=== PATIENT | male | born 1940 | race Caucasian/White ===

== ENCOUNTER 2024-02-27 18:57 | Inpatient (IN) | payer MEDICARE, SELFPAY ==
--- NOTE | ~2024-02-27 | CT_ITS ---
EXAMINATION: CT thoracic lumbar wo con DATE: 02/27/2024 22:54 INDICATION: Back injury. Fall from ladder. TECHNIQUE: Computed tomography (CT) of the thoracic and lumbar spine was performed without intravenou s contrast. Automated exposure control and iterative reconstruction technique were employed. The dose -length product was 766.28 mGy-cm. COMPARISON: None FINDINGS: CT THORACIC SPINE: There is a combination of moderate emphysema and chronic interstitial lung disease . There is 19 degrees dextroscoliosis of thoracic spine. There is mild chronic height loss of T3, T4, T5, T6, T7, T8, T9, T10, T11, and T12 vertebral bodies. There is mildly decreased disc height at man y levels. There is moderately decreased disc height at T6-T7, T7-T8, and T8-T9, severely decreased di sc height at T9-T10, and moderately decreased disc height at T10-T11. There is multilevel facet joint osteoarthritis, severe at multiple levels. There is multilevel mild neural foraminal stenosis bilate rally. On the right, there is moderate neural foraminal stenosis at T6-T7, T7-T8, and T8-T9 and sever e neural foraminal stenosis at T9-T10. On the left, there is moderate neural foraminal stenosis at T7 -T8 and T8-T9 and severe neural foraminal stenosis at T9-T10. There is mild central canal stenosis at T6-T7, T7-T8, T8-T9, T9-T10, and T10-T11. CT LUMBAR SPINE: The bladder is markedly distended. There are cysts in left kidney measuring up to 4. 3 cm. Bone alignment is normal. There is mild chronic height loss of L1 vertebral body. Intervertebra l disc heights are normal in lumbar spine. The following disc levels are specifically discussed: L1-L2: The disc is bulging. There is moderate bilateral facet joint osteoarthritis. There is mild lef t neural foraminal stenosis. There is no central canal stenosis. L2-L3: The disc is bulging. There is severe bilateral facet joint osteoarthritis. There is mild bilat eral neural foraminal stenosis. There is mild central canal stenosis. L3-L4: The disc is bulging. There is severe right and moderate left facet joint osteoarthritis. There is mild bilateral neural foraminal stenosis. There is mild central canal stenosis. L4-L5: The disc is bulging. There is severe right and moderate left facet joint osteoarthritis. There is moderate bilateral neural foraminal stenosis. There is mild central canal stenosis. L5-S1: The disc is bulging. There is severe bilateral facet joint osteoarthritis. There is mild bilat eral neural foraminal stenosis. There is mild central canal stenosis. IMPRESSION: 1. No acute spine fracture. 2. Moderate thoracic spondylosis and mild lumbar spondylosis. Reviewed, dictated and finalized at location E.
--- NOTE | ~2024-02-27 | CT_ITS ---
EXAMINATION: CT cervical spine wo con DATE: 02/27/2024 22:54 INDICATION: Head injury. TECHNIQUE: Computed tomography (CT) of the cervical spine was performed without intravenous contrast. Automated exposure control and iterative reconstruction technique were employed. The dose-length pro duct was 412.81 mGy-cm. COMPARISON: None FINDINGS: There is mild emphysema. There is 17 degrees levoscoliosis of cervicothoracic spine. There is 2 mm retrolisthesis of C3 on C4. There is a chronic compression fracture of T3 with 1/5 loss of he ight. There is severely decreased disc height at C3-C4, mildly decreased disc height at C4-C5, and mo derately decreased disc height at C5-C6 and C6-C7. The following disc levels are specifically discuss ed: C2-C3: There is no uncovertebral joint osteoarthritis. There is severe bilateral facet joint osteoart hritis. There is mild bilateral neural foraminal stenosis. There is no central canal stenosis. C3-C4: There is severe bilateral uncovertebral joint osteoarthritis. There is mild bilateral facet nadya int osteoarthritis. There is mild bilateral neural foraminal stenosis. There is mild central canal st enosis. C4-C5: There is severe right and mild left uncovertebral joint osteoarthritis. There is severe right and moderate left facet joint osteoarthritis. There is moderate right and mild left neural foraminal stenosis. There is mild central canal stenosis. C5-C6: There is severe bilateral uncovertebral joint osteoarthritis. There is severe bilateral facet joint osteoarthritis. There is mild bilateral neural foraminal stenosis. There is mild central canal stenosis. C6-C7: There is moderate right and severe left uncovertebral joint osteoarthritis. There is severe bi lateral facet joint osteoarthritis. There is mild bilateral neural foraminal stenosis. There is mild central canal stenosis. C7-T1: There is no uncovertebral joint osteoarthritis. There is severe bilateral facet joint osteoart hritis. There is mild bilateral neural foraminal stenosis. There is no central canal stenosis. IMPRESSION: 1. No fracture. 2. Severe cervical spondylosis. 3. Cervicothoracic levoscoliosis. Reviewed, dictated and finalized at location E.
--- NOTE | ~2024-02-27 | CT_ITS ---
EXAMINATION: CT brain wo con DATE: 02/27/2024 22:54 INDICATION: Head injury. TECHNIQUE: Computed tomography (CT) of the head was performed without intravenous contrast. The mA wa s adjusted according to patient size. Iterative reconstruction technique was employed. The dose-lengt h product was 756.67 mGy-cm. 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 There are scattered areas of low attenuation in the cerebral white matter. There is no intracranial hemorrhage, acute infarction, or abnormal intracranial mass lesion. The ventricles are normal in size. The orbits are normal. Ther e is mild mucosal thickening in the paranasal sinuses. The mastoid air cells are normal. IMPRESSION: 1. 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 2. Moderate nonspecific cerebral white matter disease, which likely represents chronic small vessel i schemic disease. Reviewed, dictated and finalized at location E. IMPRESSION: 1. 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 2. Moderate nonspecific cerebral white matter disease, which likely represents chronic small vessel ischemic disease.
--- NOTE | ~2024-02-27 | XR_ITS ---
EXAMINATION: XR hip RT 2V w AP pelvis DATE: 02/27/2024 21:38 INDICATION: Fall. TECHNIQUE: An anteroposterior view of the pelvis and 2 views of right hip were obtained. COMPARISON: None. FINDINGS: Bone alignment is normal. There are fractures of right superior and inferior pubic rami. Th ere is mild lumbar spondylosis. There is mild osteoarthritis of the hips. IMPRESSION: 1. Fractures of right superior and inferior pubic rami. Reviewed, dictated and finalized at location E.
--- NOTE | ~2024-02-27 | XR_ITS ---
EXAMINATION: XR chest 1V DATE: 02/27/2024 21:38 INDICATION: Fall. TECHNIQUE: A single frontal view of the chest was obtained. COMPARISON: None. FINDINGS: The lung volumes are normal. There is a diffuse interstitial pattern in the lungs. No pleur al effusion or pneumothorax. The heart size is normal. IMPRESSION: 1. Diffuse interstitial pattern in the lungs, consistent with mild pulmonary edema versus chronic int erstitial lung disease. Reviewed, dictated and finalized at location E. IMPRESSION: 1. Diffuse interstitial pattern in the lungs, consistent with mild pulmonary ed akiko versus chronic interstitial lung disease.
[2024-02-27 19:19] VITALS: BP 148/53; PULSE 77; RESP 14; TEMP 37.3; O2SAT 99
[2024-02-27 23:30] VITALS: BP 147/52; PULSE 77; RESP 15; O2SAT 96
--- NOTE | 2024-02-27 23:44 | ED.FALL ---
HPI - Fall General Chief Complaint: Fall Stated Complaint: fall, hip pain Time Seen by Provider: 02/27/24 21:59 History of Present Illness HPI Narrative: Patient was on a ladder and lost his balance and fell about 6 ft off the ground, he has not been able to get up and walk afterwards due to severe pain, mostly to his right lower back/hip. Thinks that he did hit his head but did denies any pain to his head, rest of his back. Denies any pain to the rest of his joints. Related Data Allergies Allergy/AdvReac Type Severity Reaction Status Date / Time bacitracin AdvReac Unknown Verified 02/28/24 00:33 [From Neosporin ([id number])] neomycin AdvReac Unknown Verified 02/28/24 00:33 [From Neosporin ([id number])] polymyxin B AdvReac Unknown Verified 02/28/24 00:33 [From Neosporin ([id number])] Review of Systems Review of Systems: CONST: No fever. HEENT: No sore throat C/V: No chest pain RESP: No cough GI: No abdominal pain : No dysuria. M/S: Right lower back/hip pain SKIN: Some ulcers bilateral legs NEURO: [No headache or focal numbness or weakness] PSYCH: [No depression] Exam Narrative: EXAMINATION OF ORGAN SYSTEMS/BODY AREAS: Constitutional: Vital signs per nursing GENERAL:[No acute distress, non-toxic appearing.] HEAD: Normal with no signs of head trauma. NECK: No C spine tenderness EYES: EOMI, conjunctiva normal ENT: Hearing grossly intact LUNGS: Nonlabored breathing. HEART: [Regular rate and rhythm] ABD: [Soft], [nontender to palpation] EXT: tenderness to the right lower hip/back; no obvious tenderness or deformity to any other extremity NEURO: [Alert and oriented x 3. No gross focal sensory or strength deficits.] PSYCH: Normal affect Course Vital Signs Vital signs: Vital Signs Temperature 99.1 F 02/27/24 19:19 Pulse Rate 77 02/27/24 19:19 Respiratory Rate 14 02/27/24 19:19 Blood Pressure 148/53 H 02/27/24 19:19 Pulse Oximetry 99 02/27/24 19:19 Temperature 99.1 F 02/27/24 19:19 Pulse Rate 77 02/27/24 23:30 Respiratory Rate 15 02/27/24 23:30 Blood Pressure 147/52 H 02/27/24 23:30 Pulse Oximetry 96 02/27/24 23:30 MDM - Fall MDM Narrative Medical decision making narrative: Patient presents after fall from 6 foot up with pain to his right lower back/hip, family at bedside to corroborate story, he is not any complaints other than the pain, I am highly concerned for possible fracture, intracranial bleeding, other trauma, he has no chest pain lower abdominal tenderness, CT head, C/T/L-spine negative for acute fracture, pelvis x-ray does show superior and inferior rami fractures. Case discussed with the orthopedic surgeon, patient unable to tolerate movement and unable to bear weight at this time is a did feel he needed to be admitted and he is agreeable to this. Discussed with orthopedic surgeon on-call Dr House who recommends [facility]. Will discuss with hospitalist for admission. Hospitalist recommended transfer due to trauma; I did ask patient and family where they would prefer [facility] or [facility] and they stated they could not travel well and really did not want to be transferred; they understand risks of staying here and are comfortable. D/w hospitalist who accepts. Lab Data 02/28/24 00:34 02/28/24 00:34 Labs: Lab Results 02/28/24 Range/Units 00:34 WBC 11.3 H (4.5-10.0) K/mm3 RBC 4.55 L (4.6-6.20) M/mm3 Hgb 13.1 L (14.0-18.0) g/dL Hct 41.1 L (42.0-52.0) % MCV 90.3 (80-100) fl MCH 28.8 (26-34) pg MCHC 31.9 L (32-36) g/dl RDW 14.8 H (11.5-14.5) % Plt Count 178 (150-375) k/mm3 MPV 9.3 (7.4-10.4) fl Immature Gran % (Auto) 0.6 H (0-0.5) % Neut % (Auto) 74.9 H (45.5-73.1) % Lymph % (Auto) 12.1 L (18.3-44.2) % [place] % (Auto) 9.7 H (2.6-8.5) % Eos % (Auto) 2.3 (0-4.4) % Baso % (Auto) 0.4 (0.2-1.2) % Lymph # (Auto) 1.36 (0.9-3.2) K/mm3
[2024-02-28] VITALS (7 sets, daily range): BP systolic 107–149; BP diastolic 49–86; PULSE 57–108; RESP 15–18; TEMP 36.1–37.1; O2SAT 92–97; BMI 24.6
[2024-02-28] MEDS: ACETAMINOPHEN 500 MG TABLET 1000 MG PO (00:34)
[2024-02-28 00:42] LABS: Basophils Absolute Auto 0.1 K/mm3 (0.0-0.1); Basophils Percent Auto 0.4 % (0.2-1.2); Eosinophils Absolute Auto 0.3 K/mm3 (0-0.3); Eosinophils Percent Auto 2.3 % (0-4.4); Hematocrit 41.1 % (42.0-52.0); Hemoglobin 13.1 g/dL (14.0-18.0); Immature Granulocyte Absolute 0.07 K/mm3 (0.00-0.031); Immature Granulocyte Percent A 0.6 % (0-0.5); Lymphocytes Absolute Auto 1.36 K/mm3 (0.9-3.2); Lymphocytes Percent Auto 12.1 % (18.3-44.2); Mean Corpuscular HGB Conc 31.9 g/dl (32-36); Mean Corpuscular Hemoglobin 28.8 pg (26-34); Mean Corpuscular Volume 90.3 fl (80-100); Mean Platelet Volume 9.3 fl (7.4-10.4); Monocytes Absolute Auto 1.1 K/mm3 (0.1-0.6); Monocytes Percent Auto 9.7 % (2.6-8.5); Neutrophils Absolute Auto 8.4 K/mm3 (1.3-6.7); Neutrophils Percent Auto 74.9 % (45.5-73.1); Platelet Count Result 178 k/mm3 (150-375); Red Blood Count 4.55 M/mm3 (4.6-6.20); Red Cell Distribution Width 14.8 % (11.5-14.5); White Blood Count 11.3 K/mm3 (4.5-10.0)
[2024-02-28 00:52] LABS: Anion Gap 8 mmol/L (4-12); Blood Urea Nitrogen 35 mg/dL (9-20); Calcium 9.2 mg/dL (8.4-10.2); Carbon Dioxide 26 mmol/L (22-30); Chloride 106 mmol/L (98-107); Estimated CRCL calculation 36 ml/min; Estimated Glomerular Filt Rate 48; Glucose 131 mg/dL (65-110); Potassium 3.6 mmol/L (3.4-5.0); Sodium 140 mmol/L (137-145)
[2024-02-28] MEDS: HYDROcodone/acetaminophen (*CRX) 5-325 MG TABLET 1 TAB PO ×3 (03:14→20:53)
--- NOTE | 2024-02-28 07:33 | PM.IMHP ---
H&P: HPI History of Present Illness Date/Time: 02/28/24 07:33 Chief Complaint: Fall Narrative: This is a 83-year-old male with insignificant past medical history that presents to the ED on 02/27/2024 after he had fallen off of a ladder. Patient had lost his balance and fell approximately 6 ft off the ground. He had extreme pain afterwards and was unable to get up. He denies having dizziness, blurred vision or extremity weakness causing his fall. Most of his pain was located in the right hip/back. Patient denies hitting his head or losing any consciousness. patient is a poor historian and was unable to give me much medical history. He stated that his knows everything about his medical history. She was able to be contacted and a home medication list was obtained. Patient denies drug, or tobacco use currently. He does have a history of smoking and quit tobacco [address] showing old infarct of the left temporal occipital region, no acute bleed. CT of the cervical spine with no fracture but severe cervical spondylosis and cervical thoracic levoscoliosis. CT of the thoracic and lumbar spine with no acute fracture. Hip and pelvis x-ray showing fractures of the right superior and inferior pubic rami. On-call orthopedics consulted. According to the ER on-call orthopedist recommended weight-bearing as tolerated. There was concern that patient needed transfer due to trauma but patient and his family did not want that at this time. Patient will need PT and OT evaluation. [facility] Past Medical History Medical History (Updated 02/28/24 @ 07:44 by Johanna Luis PA-C) Hyperlipidemia Hypertension Hypothyroidism Family History Family History (Updated 02/28/24 @ 04:06 by Ting Hall RN) Other Unknown family medical history Social History Social History Smoking packs per day: 3 Smoking cigarettes per day: 60.0 Years smoked: 10 Smoking pack-years: 30.00 Smoking status: Former smoker Alcohol intake: never Substance use: never Do You Feel Safe in your Home?: Yes Lack of Transportation: No Lack of Food: Never True Current Housing: I Have Housing Concerned About Future Housing: No Difficulty Paying Gas/Electric Bills: No Difficulty Paying for Meds: No Currently Unemployed: No Education: Associate Degree Difficulty w/ Childcare or Family Care: No Spiritual care concerns: No Meds Home Medications and Allergies Home Medications Medication Instructions Recorded Confirmed Type amlodipine 10 mg tablet 10 mg PO DAILY 02/28/24 02/28/24 History atorvastatin 80 mg tablet 80 mg PO DAILY 02/28/24 02/28/24 History hydrochlorothiazide 12.5 mg capsule 12.5 mg PO DAILY 02/28/24 02/28/24 History levothyroxine 100 mcg tablet 100 mcg PO DAILY 02/28/24 02/28/24 History Allergies Allergy/AdvReac Type Severity Reaction Status Date / Time bacitracin AdvReac Unknown Verified 02/28/24 00:33 [From Neosporin ([id number])] neomycin AdvReac Unknown Verified 02/28/24 00:33 [From Neosporin ([id number])] polymyxin B AdvReac Unknown Verified 02/28/24 00:33 [From Neosporin ([id number])] Vital Signs Vital Signs - 24 hr 02/27/24 19:19 02/27/24 23:30 02/28/24 02:24 Temperature 99.1 F Pulse Rate 77 77 104 H Respiratory Rate 14 15 15 Blood Pressure 148/53 H 147/52 H 131/65 Pulse Oximetry 99 96 97 Oxygen Delivery 02/28/24 03:00 02/28/24 06:07 Temperature Pulse Rate 73 Respiratory Rate 15 Blood Pressure 149/86 H Pulse Oximetry 92 Oxygen Delivery Room Air H&P: Results Labs Labs: Short CBC 02/28/24 Range/Units 00:34 WBC 11.3 H (4.5-10.0) K/mm3 Hgb 13.1 L (14.0-18.0) g/dL Hct 41.1 L (42.0-52.0) % Plt Count 178 (150-375) k/mm3 [facility] 02/28/24 00:34 Sodium 140 Potassium 3.6 Chloride 106 Carbon Dioxide 26 BUN 35 H Creatinine 1.40 H Glucose 131 H Calcium 9.2 Assessme
[2024-02-28] MEDS: ATORVASTATIN 40 MG TABLET 80 MG PO (09:26)
[2024-02-28] MEDS: amLODIPine BESYLATE 5 MG TABLET 10 MG PO (09:26)
[2024-02-28] MEDS: LEVOTHYROXINE SODIUM 100 MCG TABLET PO (09:26)
[2024-02-28 11:14] LABS: Appearance Urine Clear (Clear); Bacteria Urine None Seen /hpf; Bilirubin Urine Negative (Negative); Blood Urine 1+ (Negative); Color Urine Yellow (Yellow); Glucose Urine UA Negative (Negative); Ketones Urine Negative (Negative); Leukocyte Esterase Ur Trace LEU/UL (Negative); Nitrate Urine Negative (Negative); Protein Urine Negative (Negative); Specific Grav Ur 1.021 (1.001-1.035); Squamous Epithelial Cell Urine None Seen /hpf (Few); Urobilinogen Urine 0.2 mg/dL (<2.0); WBC Urine 0-5 /hpf (0-3)
[2024-02-28 11:18] LABS: Add Urine Microscopic? YES
--- NOTE | 2024-02-28 15:29 | PM.CNOR ---
Assessment and Plan Assessment and plan (1) Closed fracture of pubic ramus: Qualifiers: Encounter type: initial encounter Laterality: right Qualified Code(s): S32.591A - Other specified fracture of right pubis, initial encounter for closed fracture Code(s): S32.599A - Other specified fracture of unspecified pubis, initial encounter for closed fracture Status: Acute Assessment and Plan: History, exam and radiographs reviewed with the patient and family at the bedside. Radiographs of the pelvis reveal fractures of the right superior and inferior pubic rami. Mild lumbar spondylosis noted as well as mild hip osteoarthritis. The fracture type and injury as well as radiographs discussed with the patient and family. Operative and nonoperative treatment options reviewed. Recommended non operative treatment. Risk of nonunion, malunion or late displacement discussed. Stiffness, pain and possible dysfunction of the joint discussed. Fracture precautions and activity restrictions reviewed. The patient verbalizes understanding. Patient may be weight-bearing as tolerated. Pain control Patient may require [facility] vs. SNF for Rehab at discharge pending evaluation by PT/OT. Okay to remove moya catheter once patient is able to move about. Will continue to follow. (2) Fall from ladder: Code(s): W11.XXXA - Fall on and from ladder, initial encounter Status: Acute Plan Reviewed history, exam, radiographs and current labs with attending MD and covering surgeon, Dr. House, who agrees with current plan as indicated above. No further recommendations from Dr. House at this time. History of Present Illness HPI Consult date: 02/28/24 Chief complaint: Pubic Rami Fx Narrative: 83-year-old male admitted to the emergency room on 02/27/2024 after a fall off a ladder while attempting to fix a fence. Patient was unable to stand status post fall and had pain mainly in the posterior aspect of the right back and hip. He denies hitting his head or losing consciousness. He reports no significant past medical history. Radiographs in the emergency room reveal a right superior inferior pubic rami fracture. Orthopedic consult requested by the emergency room physician. Patient admitted for further evaluation and possible rehab placement. Review of Systems Review of Systems: All systems reviewed & are unremarkable except as noted in HPI and below PMFSH Past Medical History Medical History Hyperlipidemia Hypertension Hypothyroidism Family History Family History Other Unknown family medical history Social History Social History Smoking packs per day: 3 Smoking cigarettes per day: 60.0 Years smoked: 10 Smoking pack-years: 30.00 Smoking status: Former smoker Alcohol intake: never Substance use: never Do You Feel Safe in your Home?: Yes Lack of Transportation: No Lack of Food: Never True Current Housing: I Have Housing Concerned About Future Housing: No Difficulty Paying Gas/Electric Bills: No Difficulty Paying for Meds: No Currently Unemployed: No Education: Associate Degree Difficulty w/ Childcare or Family Care: No Spiritual care concerns: No Meds Home Medications and Allergies Home Medications Medication Instructions Recorded Confirmed Type amlodipine 10 mg tablet 10 mg PO DAILY 02/28/24 02/28/24 History atorvastatin 80 mg tablet 80 mg PO DAILY 02/28/24 02/28/24 History hydrochlorothiazide 12.5 mg capsule 12.5 mg PO DAILY 02/28/24 02/28/24 History levothyroxine 100 mcg tablet 100 mcg PO DAILY 02/28/24 02/28/24 History Allergies Allergy/AdvReac Type Severity Reaction Status Date / Time bacitracin AdvReac Unknown Verified 02/28/24 00:33 [From Neosporin ([id number])] neomycin AdvReac U
[2024-02-29] MEDS: LEVOTHYROXINE SODIUM 100 MCG TABLET PO (05:43)
[2024-02-29 05:48] LABS: Hematocrit 41.5 % (42.0-52.0); Mean Corpuscular HGB Conc 31.3 g/dl (32-36); Mean Corpuscular Hemoglobin 28.7 pg (26-34); Mean Corpuscular Volume 91.6 fl (80-100); Mean Platelet Volume 9.4 fl (7.4-10.4); Platelet Count Result 167 k/mm3 (150-375); Red Blood Count 4.53 M/mm3 (4.6-6.20); Red Cell Distribution Width 14.6 % (11.5-14.5); White Blood Count 9.8 K/mm3 (4.5-10.0)
[2024-02-29 06:00] VITALS: BP 159/61; PULSE 100; RESP 16; TEMP 36.4; O2SAT 97
[2024-02-29 06:05] LABS: Anion Gap 5 mmol/L (4-12); Blood Urea Nitrogen 21 mg/dL (9-20); Calcium 8.9 mg/dL (8.4-10.2); Carbon Dioxide 29 mmol/L (22-30); Chloride 104 mmol/L (98-107); Estimated CRCL calculation 45 ml/min; Estimated Glomerular Filt Rate > 60; Glucose 109 mg/dL (65-110); Potassium 3.5 mmol/L (3.4-5.0); Sodium 138 mmol/L (137-145)
[2024-02-29 06:48] LABS: Hemoglobin A1C 5.8 % (<5.7)
[2024-02-29] MEDS: amLODIPine BESYLATE 5 MG TABLET 10 MG PO (08:22)
[2024-02-29] MEDS: ATORVASTATIN 40 MG TABLET 80 MG PO (08:22)
[2024-02-29 08:32] VITALS: O2SAT 95
--- NOTE | 2024-02-29 08:52 | PM.IMPN ---
Progress Note: A&P Assessment and Plan (1) Fall from ladder: Code(s): W11.XXXA - Fall on and from ladder, initial encounter Status: Acute (2) Closed fracture of pubic ramus: Qualifiers: Encounter type: initial encounter Laterality: right Qualified Code(s): S32.591A - Other specified fracture of right pubis, initial encounter for closed fracture Code(s): S32.599A - Other specified fracture of unspecified pubis, initial encounter for closed fracture Status: Acute (3) ROSANNE (acute kidney injury): Code(s): N17.9 - Acute kidney failure, unspecified Status: Acute (4) Hypertension: Code(s): I10 - Essential (primary) hypertension Status: Acute (5) Hyperlipidemia: Code(s): E78.5 - Hyperlipidemia, unspecified Status: Acute (6) Hypothyroidism: Code(s): E03.9 - Hypothyroidism, unspecified Status: Acute Plan Acute closed fracture of pubic ramus secondary to fall from ladder Fractures of right superior and inferior pubic rami. Ortho consulted Pain control PT/OT Per ortho weight bearing as tolerated SNF? CC consulted HX HTN: Resumed home medications HCTZ was held due to ROSANNE POA resolved now HX hypothyroidism: resumed levothyroxine HX HLD: Resume statin Code status: Full code per patient DVT prophylaxis: SCD Stress ulcer prophylaxis: Protonix 40 daily PT/OT notes: PT/OT pending Disposition: Patient continues admission for pain control and PT/OT. Patient requesting to return to home and does not want to go to an [facility]. Will discuss with family and CC. Time Spent With Patient Time with patient: 15 - 25 minutes Subjective Date/time seen: 02/29/24 08:52 Interval history: Admission: Medical Record This is a? 83-year-old male with insignificant past medical history that presents to the ED on 02/27/2024 after he had fallen off of a ladder.? Patient had lost his balance and fell approximately 6 ft off the ground.? He had extreme pain afterwards and was unable to get up. He denies having dizziness, blurred vision or extremity weakness causing his fall.? Most of his pain was located in the right hip/back. Patient denies hitting his head or losing any consciousness.? patient is a poor historian and was unable to give me much medical history.? He stated that his knows everything about his medical history.? She was able to be contacted and a home medication list was obtained.? Patient denies drug, or tobacco use currently.? He does have a history of smoking and quit tobacco 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 CT of the cervical spine with no fracture but severe cervical spondylosis and cervical thoracic levoscoliosis.? CT of the thoracic and lumbar spine with no acute fracture.? Hip and pelvis x-ray showing fractures of the right superior and inferior pubic rami.? On-call orthopedics consulted.? According to the ER on-call orthopedist recommended weight-bearing as tolerated. ? There was concern that patient needed transfer due to trauma but patient and his family did not want that at this time. Patient will need PT and OT evaluation. 02/28: Patient still with moderate pain, working with PT/OT. Spoke with patient does not want to go to [facility] or SNF is requesting to go home. Will d/c moya and continue with PT/OT. Review of Systems Review of Systems: All systems reviewed & are unremarkable except as noted in HPI and below Exam Narrative: Physical Exam: GENERAL: Alert and oriented x 3. No acute distress. Well-nourished. EYES: EOMI. No scleral icterus. PERRLA. HEENT: Moist mucous membranes. LUNGS: Clear to auscultation bilaterally. No accessory muscle use. CARDIOVASCULAR: Regular rate and rhythm. No murmur. No JVD. S1-S2 ABDOMEN: Soft, mild tenderness and non-distended. No palpable masses. EXTREMITIES: No edema. Non-tender SKIN: No rashes o
[2024-02-29] MEDS: HYDROcodone/acetaminophen (*CRX) 5-325 MG TABLET 1 TAB PO ×2 (13:22→20:25)
[2024-02-29 14:00] VITALS: BP 136/68; PULSE 110; RESP 16; TEMP 36.4; O2SAT 99
[2024-02-29 20:34] VITALS: BP 159/59; PULSE 99; RESP 18; TEMP 37.1; O2SAT 97
[2024-03-01] MEDS: LEVOTHYROXINE SODIUM 100 MCG TABLET PO (05:54)
[2024-03-01 06:08] VITALS: BP 161/79; PULSE 101; RESP 18; TEMP 36.6; O2SAT 97
[2024-03-01 08:52] LABS: Hematocrit 39.5 % (42.0-52.0); Hemoglobin 12.5 g/dL (14.0-18.0); Mean Corpuscular HGB Conc 31.6 g/dl (32-36); Mean Corpuscular Hemoglobin 28.8 pg (26-34); Mean Platelet Volume 9.1 fl (7.4-10.4); Platelet Count Result 157 k/mm3 (150-375); Red Blood Count 4.34 M/mm3 (4.6-6.20); Red Cell Distribution Width 14.5 % (11.5-14.5); White Blood Count 14.9 K/mm3 (4.5-10.0)
[2024-03-01 09:19] LABS: Alanine Aminotransferase 17 U/L (6-50); Albumin Level 3.5 g/dL (3.5-5.1); Alkaline Phosphatase 103 U/L (38-126); Anion Gap 7 mmol/L (4-12); Aspartate Amino Transferase 23 U/L (17-59); Bilirubin,Total 0.9 mg/dL (0.2-1.3); Blood Urea Nitrogen 26 mg/dL (9-20); Calcium 8.9 mg/dL (8.4-10.2); Carbon Dioxide 24 mmol/L (22-30); Chloride 105 mmol/L (98-107); Estimated CRCL calculation 34 ml/min; Estimated Glomerular Filt Rate 44; Glucose 107 mg/dL (65-110); Sodium 136 mmol/L (137-145)
--- NOTE | 2024-03-01 09:25 | PM.PNORT ---
Subjective Subjective Date/Time Seen: 03/01/24 09:25 Objective Data Vital Signs Vital Signs: Vital Signs - 24 hr 02/29/24 14:00 02/29/24 20:34 02/29/24 20:00 Temperature 36.4 C 37.1 C Pulse Rate 110 H 99 Respiratory Rate 16 18 Blood Pressure 136/68 159/59 H Pulse Oximetry 99 97 Oxygen Delivery Room Air 03/01/24 06:08 03/01/24 08:00 Temperature 36.6 C Pulse Rate 101 H Respiratory Rate 18 Blood Pressure 161/79 H Pulse Oximetry 97 Oxygen Delivery Room Air Intake/Output Intake/Output: Intake & Output 02/27/24 02/28/24 02/29/24 03/01/24 23:59 23:59 23:59 23:59 Intake Total 1200 1720 250 Output Total 2700 2050 Balance -1500 -330 250 Meds/Results Medications: Active Medications Generic Name Dose Route Start Last Admin Trade Name Freq PRN Reason Stop Dose Admin Acetaminophen 650 mg 02/28/24 01:16 Acetaminophen 325 Mg Tablet PO Q4H PRN Mild Pain (1-3) or Fever Hydrocodone Bitart/Acetaminophen 1 tab 02/28/24 01:16 02/29/24 20:25 Hydrocodone/Acetaminophen (*Crx) 5-325 Mg Tablet PO 1 tab Q4H PRN Administration Pain Rated 4-6 Amlodipine Besylate 10 mg 02/28/24 09:00 02/29/24 08:22 Amlodipine Besylate 5 Mg Tablet PO 10 mg DAILY SIOBHAN Administration Atorvastatin Calcium 80 mg 02/28/24 09:00 02/29/24 08:22 Atorvastatin 40 Mg Tablet PO 80 mg DAILY ISOBHAN Administration Levothyroxine Sodium 100 mcg 02/28/24 08:00 03/01/24 05:54 Levothyroxine Sodium 100 Mcg Tablet PO 100 mcg DAILY@0630 [facility] Administration Radiology Results: ITS Impressions Hip/Pelvis X-Ray 02/27/24 21:46 IMPRESSION: 1. Fractures of right superior and inferior pubic rami. Chest X-Ray 02/27/24 21:48 IMPRESSION: 1. Diffuse interstitial pattern in the lungs, consistent with mild pulmonary edema versus chronic interstitial lung disease. Head CT 02/27/24 22:58 IMPRESSION: 1. 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 2. Moderate nonspecific cerebral white matter disease, which likely represents chronic small vessel ischemic disease. Cervical Spine CT 02/27/24 23:00 IMPRESSION: 1. No fracture. 2. Severe cervical spondylosis. 3. Cervicothoracic levoscoliosis. Thoracic/Lumbar Spine CT 02/27/24 23:04 IMPRESSION: 1. No acute spine fracture. 2. Moderate thoracic spondylosis and mild lumbar spondylosis. Labs Labs: Laboratory Results - last 24 hr 03/01/24 08:46 WBC 14.9 H RBC 4.34 L Hgb 12.5 L Hct 39.5 L MCV 91.0 MCH 28.8 MCHC 31.6 L RDW 14.5 Plt Count 157 MPV 9.1 Sodium 136 L Potassium 4.0 Chloride 105 Carbon Dioxide 24 Anion Gap 7 BUN 26 H Creatinine 1.50 H Estim Creat Clear Calc 34 Estimated GFR 44 L Glucose 107 Calcium 8.9 Total Bilirubin 0.9 AST 23 ALT 17 Alkaline Phosphatase 103 Total Protein 7.0 Albumin 3.5
[2024-03-01] MEDS: amLODIPine BESYLATE 5 MG TABLET 10 MG PO (09:31)
[2024-03-01] MEDS: ATORVASTATIN 40 MG TABLET 80 MG PO (09:31)
[2024-03-01] MEDS: HYDROcodone/acetaminophen (*CRX) 5-325 MG TABLET 1 TAB PO (09:33)
[2024-03-01 14:00] VITALS: BP 104/82; PULSE 75; RESP 16; TEMP 36.6; O2SAT 99
--- NOTE | 2024-03-01 14:04 | PM.IMPN ---
Progress Note: A&P Assessment and Plan (1) Fall from ladder: Code(s): W11.XXXA - Fall on and from ladder, initial encounter Status: Acute (2) Closed fracture of pubic ramus: Qualifiers: Encounter type: initial encounter Laterality: right Qualified Code(s): S32.591A - Other specified fracture of right pubis, initial encounter for closed fracture Code(s): S32.599A - Other specified fracture of unspecified pubis, initial encounter for closed fracture Status: Acute (3) ROSANNE (acute kidney injury): Code(s): N17.9 - Acute kidney failure, unspecified Status: Acute (4) Hypertension: Code(s): I10 - Essential (primary) hypertension Status: Acute (5) Hyperlipidemia: Code(s): E78.5 - Hyperlipidemia, unspecified Status: Acute (6) Hypothyroidism: Code(s): E03.9 - Hypothyroidism, unspecified Status: Acute Plan Acute closed fracture of pubic ramus secondary to fall from ladder Fractures of right superior and inferior pubic rami. Ortho consulted Pain control PT/OT Per ortho weight bearing as tolerated SNF? CC consulted HX HTN: Resumed home medications HCTZ was held due to ROSANNE POA resolved now HX hypothyroidism: resumed levothyroxine HX HLD: Resume statin Code status: Full code per patient DVT prophylaxis: SCD Stress ulcer prophylaxis: Protonix 40 daily PT/OT notes: PT/OT pending Disposition: Patient continues admission for pain control and PT/OT. Family requesting SNF patient has been [facility] just waiting on Auth. Time Spent With Patient Time with patient: 15 - 25 minutes Subjective Date/time seen: 03/01/24 14:04 Interval history: Admission: Medical Record This is a? 83-year-old male with insignificant past medical history that presents to the ED on 02/27/2024 after he had fallen off of a ladder.? Patient had lost his balance and fell approximately 6 ft off the ground.? He had extreme pain afterwards and was unable to get up. He denies having dizziness, blurred vision or extremity weakness causing his fall.? Most of his pain was located in the right hip/back. Patient denies hitting his head or losing any consciousness.? patient is a poor historian and was unable to give me much medical history.? He stated that his knows everything about his medical history.? She was able to be contacted and a home medication list was obtained.? Patient denies drug, or tobacco use currently.? He does have a history of smoking and quit tobacco 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 CT of the cervical spine with no fracture but severe cervical spondylosis and cervical thoracic levoscoliosis.? CT of the thoracic and lumbar spine with no acute fracture.? Hip and pelvis x-ray showing fractures of the right superior and inferior pubic rami.? On-call orthopedics consulted.? According to the ER on-call orthopedist recommended weight-bearing as tolerated. ? There was concern that patient needed transfer due to trauma but patient and his family did not want that at this time. Patient will need PT and OT evaluation. 02/28: Patient still with moderate pain, working with PT/OT. Spoke with patient does not want to go to [facility] or SNF is requesting to go home. Will d/c moya and continue with PT/OT. 03/01: Patient with moderate confusion intermittent, can answer some questions appropriately, family states is memory and confusion as been worsening at home. Patient was up in chair and has been urinating post catheter removal. Patient is a moderate to full assist for transfers currently and reports moderate to severe pain with movement. CC spoke with family who have requested patient go to SNF for rehab because they are unable to safely care for him at home. Review of Systems Review of Systems: All systems reviewed & are unremarkable except as noted in HPI
[2024-03-01 18:29] LABS: Appearance Urine Turbid (Clear); Bacteria Urine 4+ /hpf; Bilirubin Urine Negative (Negative); Blood Urine 3+ (Negative); Color Urine Yellow (Yellow); Glucose Urine UA Negative (Negative); Ketones Urine Trace mg/dL (Negative); Leukocyte Esterase Ur 3+ LEU/UL (Negative); Need Manual Microscopic Reviewed; Nitrate Urine Negative (Negative); Protein Urine 2+ mg/dL (Negative); RBC Urine 51-100 /hpf (0-2); Specific Grav Ur 1.015 (1.001-1.035); Squamous Epithelial Cell Urine Many /hpf (Few); Urobilinogen Urine 0.2 mg/dL (<2.0); WBC Urine >100 /hpf (0-3); pH Urine 5.5 (5.0-9.0)
[2024-03-01 18:30] LABS: Add Urine Microscopic? YES
[2024-03-01 20:00] VITALS: O2SAT 97
[2024-03-01 21:46] VITALS: BP 118/75; PULSE 69; RESP 18; TEMP 36.6; O2SAT 97
[2024-03-02] MEDS: LEVOTHYROXINE SODIUM 100 MCG TABLET PO (05:58)
[2024-03-02 06:00] VITALS: BP 110/62; PULSE 79; RESP 18; TEMP 36.1; O2SAT 96
[2024-03-02 06:11] LABS: Hematocrit 37.3 % (42.0-52.0); Hemoglobin 11.4 g/dL (14.0-18.0); Mean Corpuscular HGB Conc 30.6 g/dl (32-36); Mean Corpuscular Hemoglobin 28.1 pg (26-34); Mean Corpuscular Volume 92.1 fl (80-100); Mean Platelet Volume 9.7 fl (7.4-10.4); Platelet Count Result 170 k/mm3 (150-375); Red Blood Count 4.05 M/mm3 (4.6-6.20); Red Cell Distribution Width 14.8 % (11.5-14.5); White Blood Count 16.3 K/mm3 (4.5-10.0)
[2024-03-02 06:56] LABS: Alanine Aminotransferase 16 U/L (6-50); Albumin Level 3.4 g/dL (3.5-5.1); Alkaline Phosphatase 100 U/L (38-126); Anion Gap 7 mmol/L (4-12); Aspartate Amino Transferase 22 U/L (17-59); Bilirubin,Total 0.7 mg/dL (0.2-1.3); Blood Urea Nitrogen 41 mg/dL (9-20); Calcium 8.7 mg/dL (8.4-10.2); Carbon Dioxide 25 mmol/L (22-30); Chloride 104 mmol/L (98-107); Estimated CRCL calculation 27 ml/min; Estimated Glomerular Filt Rate 34; Glucose 101 mg/dL (65-110); Potassium 3.6 mmol/L (3.4-5.0); Sodium 136 mmol/L (137-145)
--- NOTE | 2024-03-02 08:04 | PM.IMPN ---
Progress Note: A&P Assessment and Plan (1) Fall from ladder: Qualifiers: Encounter type: initial encounter Qualified Code(s): W11.XXXA - Fall on and from ladder, initial encounter Code(s): W11.XXXA - Fall on and from ladder, initial encounter Status: Acute (2) Closed fracture of pubic ramus: Qualifiers: Encounter type: initial encounter Laterality: right Qualified Code(s): S32.591A - Other specified fracture of right pubis, initial encounter for closed fracture Code(s): S32.599A - Other specified fracture of unspecified pubis, initial encounter for closed fracture Status: Acute (3) ROSANNE (acute kidney injury): Code(s): N17.9 - Acute kidney failure, unspecified Status: Acute (4) Hypertension: Code(s): I10 - Essential (primary) hypertension Status: Acute (5) Hyperlipidemia: Code(s): E78.5 - Hyperlipidemia, unspecified Status: Acute (6) Hypothyroidism: Code(s): E03.9 - Hypothyroidism, unspecified Status: Acute (7) UTI (urinary tract infection): Qualifiers: Hematuria presence: without hematuria Urinary tract infection type: site unspecified Qualified Code(s): N39.0 - Urinary tract infection, site not specified Code(s): N39.0 - Urinary tract infection, site not specified Status: Acute (8) Venous stasis dermatitis of both lower extremities: Code(s): I87.2 - Venous insufficiency (chronic) (peripheral) Status: Acute Plan Acute closed fracture of pubic ramus secondary to fall from ladder Fractures of right superior and inferior pubic rami. Ortho consulted Pain control PT/OT Per ortho weight bearing as tolerated SNF? CC consulted UTI Urine cultures pending UA with turbid, leukocytes + and bacteria and WBC 16 Unsure if POA or from catheter no UA on admission Rocephin pending cultures venous stasis dermatitis Chronic Wound care consulted HX HTN: Resumed home medications HCTZ was held due to ROSANNE POA resolved now HX hypothyroidism: resumed levothyroxine HX HLD: Resume statin Code status: Full code per patient DVT prophylaxis: SCD Stress ulcer prophylaxis: Protonix 40 daily PT/OT notes: PT/OT pending Disposition: Patient continues admission for pain control and PT/OT. Family requesting SNF patient has been [facility] [place] just waiting on Auth. Time Spent With Patient Time with patient: 15 - 25 minutes Subjective Date/time seen: 03/02/24 08:04 Interval history: Admission: Medical Record This is a? 83-year-old male with insignificant past medical history that presents to the ED on 02/27/2024 after he had fallen off of a ladder.? Patient had lost his balance and fell approximately 6 ft off the ground.? He had extreme pain afterwards and was unable to get up. He denies having dizziness, blurred vision or extremity weakness causing his fall.? Most of his pain was located in the right hip/back. Patient denies hitting his head or losing any consciousness.? patient is a poor historian and was unable to give me much medical history.? He stated that his knows everything about his medical history.? She was able to be contacted and a home medication list was obtained.? Patient denies drug, or tobacco use currently.? He does have a history of smoking and quit tobacco 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 CT of the cervical spine with no fracture but severe cervical spondylosis and cervical thoracic levoscoliosis.? CT of the thoracic and lumbar spine with no acute fracture.? Hip and pelvis x-ray showing fractures of the right superior and inferior pubic rami.? On-call orthopedics consulted.? According to the ER on-call orthopedist recommended weight-bearing as tolerated. ? There was concern that patient needed transfer due to trauma but patient and his family did not want t
[2024-03-02 08:20] VITALS: O2SAT 96
[2024-03-02] MEDS: ATORVASTATIN 40 MG TABLET 80 MG PO (08:46)
[2024-03-02] MEDS: amLODIPine BESYLATE 5 MG TABLET 10 MG PO (08:47)
--- NOTE | 2024-03-02 11:29 | PM.PNORT ---
Progress Note: A&P Assessment and Plan (1) Closed fracture of pubic ramus: Qualifiers: Encounter type: initial encounter Laterality: right Qualified Code(s): S32.591A - Other specified fracture of right pubis, initial encounter for closed fracture Code(s): S32.599A - Other specified fracture of unspecified pubis, initial encounter for closed fracture Status: Acute Assessment and Plan: History, exam and radiographs reviewed with the patient and family at the bedside. Radiographs of the pelvis reveal fractures of the right superior and inferior pubic rami. Mild lumbar spondylosis noted as well as mild hip osteoarthritis. The fracture type and injury as well as radiographs discussed with the patient and family. Operative and nonoperative treatment options reviewed. Recommended non operative treatment. Risk of nonunion, malunion or late displacement discussed. Stiffness, pain and possible dysfunction of the joint discussed. Fracture precautions and activity restrictions reviewed. The patient verbalizes understanding. Patient may be weight-bearing as tolerated. Pain control PT/OT Dispo:SNF for rehab Follow up in 6 weeks for reevaluation (2) Fall from ladder: Qualifiers: Encounter type: initial encounter Qualified Code(s): W11.XXXA - Fall on and from ladder, initial encounter Code(s): W11.XXXA - Fall on and from ladder, initial encounter Status: Acute Plan Reviewed history, exam, radiographs and current labs with attending MD and covering surgeon, Dr. House, who agrees with current plan as indicated above. No further recommendations from Dr. House at this time. Subjective Subjective Date/Time Seen: 03/02/24 11:29 Interval history: Patient examined today. Doing well. Pain improved in comparison to yesterday per patient and family report. Review of Systems Review of Systems: All systems reviewed & are unremarkable except as noted in HPI and below Exam Const: General: comfortable and no acute distress HENMT: Mouth: Yes moist mucous membranes Eyes: General: appearance normal, both eyes and all related structures Neck: Neck: supple and no JVD Resp: Effort & Inspection: normal respiratory effort Cardio: Rate: regular rate Rhythm: regular rhythm GI: Inspection: non-distended Back/Spine/Pelvis: Pelvis: buttock tenderness on the right and buttock swelling on the right Coccyx: Coccyx tenderness present Neuro: General: gait normal Cognition (Neuro): normal cognition Speech: normal speech Sensory Exam: normal sensation Extrem: Right lower extremity: hip/thigh Details: normal to inspection, tenderness Location: of the hip Location: posteriorly; not laterally and not anteriorly and swelling Location: at the hip Psych: Mental Status: mental status grossly normal Affect: normal affect Objective Data Vital Signs Vital Signs: Vital Signs - 24 hr 03/01/24 14:00 03/01/24 21:46 03/01/24 20:00 Temperature 36.6 C 36.6 C Pulse Rate 75 69 Respiratory Rate 16 18 Blood Pressure 104/82 118/75 Pulse Oximetry 99 97 Oxygen Delivery Room Air 03/01/24 20:00 03/02/24 06:00 03/02/24 08:20 Temperature 36.1 C L Pulse Rate 79 Respiratory Rate 18 Blood Pressure 110/62 Pulse Oximetry 97 96 96 Oxygen Delivery Room Air Room Air Intake/Output Intake/Output: Intake & Output 02/28/24 02/29/24 03/01/24 03/02/24 23:59 23:59 23:59 23:59 Intake Total 1200 1720 1430 910 Output Total 2700 2050 400 450 Balance -1500 -330 1030 460 Meds/Results Medications: Active Medications Generic Name Dose Route Start Last Admin Trade Name Freq PRN Reason Stop Dose Admin Acetaminophen 650 mg 02/28/24 01:16 Acetaminophen 325 Mg Tablet PO Q4H PRN Mild Pain (1-3) or Fever Hydrocodone Bitart/Acetaminophen 1 tab 02/28/24 01:16 03/01/24 09:33 Hydrocodone/Acetaminophen (*Crx) 5-325 Mg Tablet PO 1 tab Q4H PRN Administratio
[2024-03-02 14:00] VITALS: BP 135/50; PULSE 91; RESP 16; TEMP 37.3; O2SAT 99
--- NOTE | 2024-03-02 21:17 | PC.NURSE ---
Noted temp 101.5. Attempted to give patient Tylenol in order to treat temp. Patient has declined to take any medicines. Education was provided to patient regarding need of medication and other options. Patient adamant about not taking medication. Alternative measures were taken. Blankets were removed and room temperature were adjusted at this time. Will reattempt administration in 15 minutes.
--- NOTE | 2024-03-02 21:28 | PC.NURSE ---
2nd nurse on floor provided further education in attempt to get patient to take Tylenol. He maintains refusal.
[2024-03-02 22:22] VITALS: TEMP 38.6
[2024-03-02] MEDS: ACETAMINOPHEN 325 MG TABLET 650 MG PO (22:22)
[2024-03-02 22:29] VITALS: BP 170/62; PULSE 117; RESP 18; TEMP 38.6; O2SAT 97
[2024-03-02 23:22] VITALS: TEMP 37.5
[2024-03-03] VITALS (8 sets, daily range): BP systolic 110–177; BP diastolic 49–64; PULSE 60–116; RESP 16–18; TEMP 36.6–38.5; O2SAT 95–97
[2024-03-03 05:02] LABS: Hematocrit 40.6 % (42.0-52.0); Hemoglobin 12.8 g/dL (14.0-18.0); Mean Corpuscular HGB Conc 31.5 g/dl (32-36); Mean Corpuscular Hemoglobin 28.6 pg (26-34); Mean Corpuscular Volume 90.6 fl (80-100); Mean Platelet Volume 9.6 fl (7.4-10.4); Platelet Count Result 168 k/mm3 (150-375); Red Blood Count 4.48 M/mm3 (4.6-6.20); Red Cell Distribution Width 14.7 % (11.5-14.5); White Blood Count 12.7 K/mm3 (4.5-10.0)
[2024-03-03 05:10] LABS: Alanine Aminotransferase 21 U/L (6-50); Albumin Level 3.9 g/dL (3.5-5.1); Alkaline Phosphatase 134 U/L (38-126); Anion Gap 10 mmol/L (4-12); Aspartate Amino Transferase 28 U/L (17-59); Bilirubin,Total 0.9 mg/dL (0.2-1.3); Blood Urea Nitrogen 42 mg/dL (9-20); Calcium 9.1 mg/dL (8.4-10.2); Carbon Dioxide 24 mmol/L (22-30); Chloride 104 mmol/L (98-107); Estimated CRCL calculation 30 ml/min; Estimated Glomerular Filt Rate 38; Glucose 112 mg/dL (65-110); Potassium 3.9 mmol/L (3.4-5.0); Sodium 138 mmol/L (137-145)
[2024-03-03] MEDS: LEVOTHYROXINE SODIUM 100 MCG TABLET PO (06:23)
--- NOTE | 2024-03-03 08:06 | PM.IMPN ---
Progress Note: A&P Assessment and Plan (1) Fall from ladder: Qualifiers: Encounter type: initial encounter Qualified Code(s): W11.XXXA - Fall on and from ladder, initial encounter Code(s): W11.XXXA - Fall on and from ladder, initial encounter Status: Acute (2) Closed fracture of pubic ramus: Qualifiers: Encounter type: initial encounter Laterality: right Qualified Code(s): S32.591A - Other specified fracture of right pubis, initial encounter for closed fracture Code(s): S32.599A - Other specified fracture of unspecified pubis, initial encounter for closed fracture Status: Acute (3) ROSANNE (acute kidney injury): Code(s): N17.9 - Acute kidney failure, unspecified Status: Acute (4) Hypertension: Code(s): I10 - Essential (primary) hypertension Status: Acute (5) Hyperlipidemia: Code(s): E78.5 - Hyperlipidemia, unspecified Status: Acute (6) Hypothyroidism: Code(s): E03.9 - Hypothyroidism, unspecified Status: Acute (7) UTI (urinary tract infection): Qualifiers: Hematuria presence: without hematuria Urinary tract infection type: site unspecified Qualified Code(s): N39.0 - Urinary tract infection, site not specified Code(s): N39.0 - Urinary tract infection, site not specified Status: Acute (8) Venous stasis dermatitis of both lower extremities: Code(s): I87.2 - Venous insufficiency (chronic) (peripheral) Status: Acute Plan Acute closed fracture of pubic ramus secondary to fall from ladder Fractures of right superior and inferior pubic rami. Ortho consulted Pain control PT/OT Per ortho weight bearing as tolerated SNF? CC consulted ASA 325 daily UTI Urine cultures pending UA with turbid, leukocytes + and bacteria and WBC 16 Unsure if POA or from catheter no UA on admission Rocephin pending cultures 03/03: Febrile 101.5 overnight blood cultures ordered ECOLI pending sensitivities venous stasis dermatitis Chronic Wound care consulted HX HTN: Resumed amlodipine/Stop HTCZ home dose/Low dose Coreg added HX hypothyroidism: resumed levothyroxine HX HLD: Resume statin Code status: Full code per patient DVT prophylaxis: SCD Stress ulcer prophylaxis: Protonix 40 daily PT/OT notes: PT/OT pending Disposition: Patient continues admission for pain control and PT/OT. Family requesting SNF patient has been accepted to [facility], just waiting on cultures. Time Spent With Patient Time with patient: 15 - 25 minutes Subjective Date/time seen: 03/03/24 08:06 Interval history: Admission: Medical Record This is a? 83-year-old male with insignificant past medical history that presents to the ED on 02/27/2024 after he had fallen off of a ladder.? Patient had lost his balance and fell approximately 6 ft off the ground.? He had extreme pain afterwards and was unable to get up. He denies having dizziness, blurred vision or extremity weakness causing his fall.? Most of his pain was located in the right hip/back. Patient denies hitting his head or losing any consciousness.? patient is a poor historian and was unable to give me much medical history.? He stated that his knows everything about his medical history.? She was able to be contacted and a home medication list was obtained.? Patient denies drug, or tobacco use currently.? He does have a history of smoking and quit tobacco 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 CT of the cervical spine with no fracture but severe cervical spondylosis and cervical thoracic levoscoliosis.? CT of the thoracic and lumbar spine with no acute fracture.? Hip and pelvis x-ray showing fractures of the right superior and inferior pubic rami.? On-call orthopedics consulted.? According to the ER on-call orthopedist recommended weight-bearing as tolerated. ?
[2024-03-03] MEDS: ATORVASTATIN 40 MG TABLET 80 MG PO (08:39)
[2024-03-03] MEDS: ASPIRIN 325 MG ENTERIC TABLET PO (08:39)
[2024-03-03] MEDS: carvediloL 3.125 MG TABLET PO ×2 (08:39→20:45)
[2024-03-03] MEDS: amLODIPine BESYLATE 5 MG TABLET 10 MG PO (08:41)
[2024-03-03] MEDS: ACETAMINOPHEN 325 MG TABLET 650 MG PO (20:44)
[2024-03-04 05:23] LABS: Hematocrit 38.5 % (42.0-52.0); Hemoglobin 12.3 g/dL (14.0-18.0); Mean Corpuscular HGB Conc 31.9 g/dl (32-36); Mean Corpuscular Hemoglobin 28.7 pg (26-34); Mean Corpuscular Volume 89.7 fl (80-100); Mean Platelet Volume 9.3 fl (7.4-10.4); Platelet Count Result 146 k/mm3 (150-375); Red Blood Count 4.29 M/mm3 (4.6-6.20); Red Cell Distribution Width 14.7 % (11.5-14.5); White Blood Count 9.1 K/mm3 (4.5-10.0)
[2024-03-04 05:36] VITALS: BP 146/79; PULSE 72; RESP 18; TEMP 36.6; O2SAT 95
[2024-03-04 05:36] LABS: Alanine Aminotransferase 38 U/L (6-50); Albumin Level 3.6 g/dL (3.5-5.1); Alkaline Phosphatase 121 U/L (38-126); Anion Gap 6 mmol/L (4-12); Aspartate Amino Transferase 53 U/L (17-59); Bilirubin,Total 0.9 mg/dL (0.2-1.3); Blood Urea Nitrogen 42 mg/dL (9-20); Calcium 8.6 mg/dL (8.4-10.2); Carbon Dioxide 26 mmol/L (22-30); Chloride 102 mmol/L (98-107); Estimated CRCL calculation 34 ml/min; Estimated Glomerular Filt Rate 44; Glucose 99 mg/dL (65-110); Potassium 4.2 mmol/L (3.4-5.0); Sodium 134 mmol/L (137-145)
[2024-03-04] MEDS: LEVOTHYROXINE SODIUM 100 MCG TABLET PO (06:04)
[2024-03-04 09:30] VITALS: BP 100/42
[2024-03-04 09:31] VITALS: PULSE 88
[2024-03-04] MEDS: AMOXICILLIN/CLAVULANATE K 875-125 MG TAB 1 TABLET PO (09:31)
[2024-03-04] MEDS: ATORVASTATIN 40 MG TABLET 80 MG PO (09:31)
[2024-03-04] MEDS: carvediloL 3.125 MG TABLET PO (09:31)
[2024-03-04] MEDS: ASPIRIN 325 MG ENTERIC TABLET PO (09:31)
--- NOTE | 2024-03-04 11:14 | PM.DS ---
DS: Admitting Diagnosis Discharge Date 03/04/2024 Admitting Diagnosis Fall/Closed Fractured pubic Ramus/ROSANNE DS: Discharge Diagnosis Discharge Diagnosis (1) Fall from ladder: Qualifiers: Encounter type: initial encounter Qualified Code(s): W11.XXXA - Fall on and from ladder, initial encounter Code(s): W11.XXXA - Fall on and from ladder, initial encounter Status: Acute (2) Closed fracture of pubic ramus: Qualifiers: Encounter type: initial encounter Laterality: right Qualified Code(s): S32.591A - Other specified fracture of right pubis, initial encounter for closed fracture Code(s): S32.599A - Other specified fracture of unspecified pubis, initial encounter for closed fracture Status: Acute (3) ROSANNE (acute kidney injury): Code(s): N17.9 - Acute kidney failure, unspecified Status: Acute (4) Hypertension: Code(s): I10 - Essential (primary) hypertension Status: Acute (5) Hyperlipidemia: Code(s): E78.5 - Hyperlipidemia, unspecified Status: Acute (6) Hypothyroidism: Code(s): E03.9 - Hypothyroidism, unspecified Status: Acute (7) UTI (urinary tract infection): Qualifiers: Urinary tract infection type: site unspecified Hematuria presence: without hematuria Qualified Code(s): N39.0 - Urinary tract infection, site not specified Code(s): N39.0 - Urinary tract infection, site not specified Status: Acute (8) Venous stasis dermatitis of both lower extremities: Code(s): I87.2 - Venous insufficiency (chronic) (peripheral) Status: Acute Plan Acute closed fracture of pubic ramus secondary to fall from ladder Fractures of right superior and inferior pubic rami. Ortho consulted Pain control PT/OT Per ortho weight bearing as tolerated SNF? CC consulted ASA 325 daily UTI Urine cultures pending UA with turbid, leukocytes + and bacteria and WBC 16 Unsure if POA or from catheter no UA on admission Rocephin pending cultures 03/03: Febrile 101.5 overnight blood cultures ordered ECOLI pending sensitivities venous stasis dermatitis Chronic Wound care consulted HX HTN: Resumed amlodipine/Stop HTCZ home dose/Low dose Coreg added HX hypothyroidism: resumed levothyroxine HX HLD: Resume statin Disposition: Patient discharged to [facility] for rehab. DS: Summary Hospital Course Reason for hospitalization: Fall/Closed Fractured pubic Ramus/ROSANNE/UTI Hospital Course: Admission: Medical Record Patient was a? 83-year-old male with insignificant past medical history that presents to the ED on 02/27/2024 after he had fallen off of a ladder.? Patient had lost his balance and fell approximately 6 ft off the ground.? He had extreme pain afterwards and was unable to get up. He denies having dizziness, blurred vision or extremity weakness causing his fall.? Most of his pain was located in the right hip/back. Patient denies hitting his head or losing any consciousness.? patient is a poor historian and was unable to give me much medical history.? He stated that his knows everything about his medical history.? She was able to be contacted and a home medication list was obtained.? Patient denies drug, or tobacco use currently.? He does have a history of smoking and quit tobacco 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 CT of the cervical spine with no fracture but severe cervical spondylosis and cervical thoracic levoscoliosis.? CT of the thoracic and lumbar spine with no acute fracture.? Hip and pelvis x-ray showing fractures of the right superior and inferior pubic rami.? On-call orthopedics consulted.? According to the ER on-call orthopedist recommended weight-bearing as tolerated. ? There was concern that patient needed transfer due to trauma but patient and his family did not want that at this time
[2024-03-04 12:24] LABS: SARS-CoV-2 RNA PCR Negative (Negative)
== END 2024-03-04 12:35 | DRG 536 ==
LOC: ANHED 23:49 → ANH3MED 02-28 02:59
PROVIDERS: Internal Medicine Critical Care Medicine; Admitting Provider Internal Medicine; Emergency Provider Emergency Medicine; PCP Internal Medicine; Visit Provider Nurse Practitioner Family
DX: S32.511A Fracture of superior rim of right pubis, initial encounter for closed fracture (principal); N39.0 Urinary tract infection, site not specified; N17.9 Acute kidney failure, unspecified; S32.591A Other specified fracture of right pubis, initial encounter for closed fracture; W11.XXXA Fall on and from ladder, initial encounter; B96.20 Unspecified Escherichia coli [E. coli] as the cause of diseases classified elsewhere; E03.9 Hypothyroidism, unspecified; E78.5 Hyperlipidemia, unspecified; I87.8 Other specified disorders of veins; I10 Essential (primary) hypertension; M47.816 Spondylosis without myelopathy or radiculopathy, lumbar region; M47.812 Spondylosis without myelopathy or radiculopathy, cervical region; Z87.891 Personal history of nicotine dependence; Z11.52 Encounter for screening for COVID-19; Z86.73 Personal history of transient ischemic attack (TIA), and cerebral infarction without residual deficits
CPT/HCPCS: 36415; 70450; 71045; 72125; 72128; 72131; 73502; 80048; 80053; 81001; 83036; 84443; 85025; 85027; 87040; 87077; 87086; 87088; 87181; 87186; 87635; 97110; 97116; 97161; 97165; 97530; 97535; 99285; A9270; J0696

== ENCOUNTER 2024-04-16 10:58 | Inpatient (IN) | payer MEDICARE, SELFPAY ==
[2024-04-16] VITALS (14 sets, daily range): BP systolic 96–146; BP diastolic 45–101; PULSE 92–122; RESP 12–20; TEMP 36.2–36.6; O2SAT 97–100
[2024-04-16] MEDS: SODIUM CHLORIDE 0.9% IV 1,000 ML 999 ML IV CONT ×2 (11:26→13:03)
[2024-04-16 11:44] LABS: Basophils Absolute Auto 0.1 K/mm3 (0.0-0.1); Basophils Percent Auto 0.4 % (0.2-1.2); Eosinophils Percent Auto 0.1 % (0-4.4); Hematocrit 37.1 % (42.0-52.0); Hemoglobin 11.7 g/dL (14.0-18.0); Immature Granulocyte Absolute 0.06 K/mm3 (0.00-0.031); Immature Granulocyte Percent A 0.4 % (0-0.5); Lymphocytes Percent Auto 8.6 % (18.3-44.2); Mean Corpuscular HGB Conc 31.5 g/dl (32-36); Mean Corpuscular Hemoglobin 28.5 pg (26-34); Mean Corpuscular Volume 90.5 fl (80-100); Mean Platelet Volume 9.2 fl (7.4-10.4); Monocytes Absolute Auto 0.7 K/mm3 (0.1-0.6); Neutrophils Percent Auto 85.5 % (45.5-73.1); Platelet Count Result 186 k/mm3 (150-375); Red Cell Distribution Width 15.4 % (11.5-14.5)
[2024-04-16 11:59] LABS: Alanine Aminotransferase 16 U/L (6-50); Albumin Level 3.9 g/dL (3.5-5.1); Alkaline Phosphatase 165 U/L (38-126); Anion Gap 9 mmol/L (4-12); Aspartate Amino Transferase 25 U/L (17-59); Bilirubin,Total 0.7 mg/dL (0.2-1.3); Blood Urea Nitrogen 30 mg/dL (9-20); Calcium 8.6 mg/dL (8.4-10.2); Carbon Dioxide 18 mmol/L (22-30); Chloride 109 mmol/L (98-107); Estimated CRCL calculation 26 ml/min; Estimated Glomerular Filt Rate 34; Glucose 111 mg/dL (65-110); Potassium 3.2 mmol/L (3.4-5.0); Sodium 136 mmol/L (137-145)
[2024-04-16 13:48] LABS: Toxigenic C. Diff POSITIVE (NEGATIVE)
--- NOTE | 2024-04-16 14:42 | ED.GENADULT ---
HPI - General Adult General Chief complaint: Nausea/Vomiting/Diarrhea Stated complaint: weak, dizzy, n/v Time Seen by Provider: 04/16/24 11:09 History of Present Illness HPI narrative: Patient is an 83-year-old male who presents ER with weakness and diarrhea. Has been having diarrhea over the last few days. Approximately 6-7 episodes a day. No vomiting. Denies fevers or chills. Had been hospitalized for pelvic fracture and went to the [facility]. He got home a week ago. Patient with mild dementia. No additional complaints. No antibiotics at home. History provided by family at bedside. Related Data Home Medications Medication Instructions Recorded Confirmed amlodipine 10 mg tablet 10 mg PO DAILY 02/28/24 02/28/24 atorvastatin 80 mg tablet 80 mg PO DAILY 02/28/24 02/28/24 levothyroxine 100 mcg tablet 100 mcg PO DAILY 02/28/24 02/28/24 Allergies Allergy/AdvReac Type Severity Reaction Status Date / Time bacitracin AdvReac Unknown Verified 02/28/24 00:33 [From Neosporin ([id number])] neomycin AdvReac Unknown Verified 02/28/24 00:33 [From Neosporin ([id number])] polymyxin B AdvReac Unknown Verified 02/28/24 00:33 [From Neosporin ([id number])] Review of Systems Review of Systems: All systems reviewed & are unremarkable except as noted in HPI and below Constitutional: Constitutional: Denies chills, Reports fatigue and Denies fever(s) ENT: Reports system reviewed and no additional complaints, except as documented Cardiovascular: Cardiovascular: Reports no additional cardiovascular complaints Respiratory: Respiratory: Reports no additional respiratory complaints Gastrointestinal: Gastrointestinal: Denies abdominal pain, Reports diarrhea, Denies nausea and Denies vomiting Genitourinary: Genitourinary: Reports no additional male genitourinary complaints [facility] Past Medical History Medical History (Updated 04/16/24 @ 14:47 by Maykel Lopez MD) Dementia Hyperlipidemia Hypertension Hypothyroidism Family History Family History Other Unknown family medical history Social History Social History Smoking packs per day: 3 Smoking cigarettes per day: 60.0 Years smoked: 10 Smoking pack-years: 30.00 Smoking status: Former smoker Alcohol intake: never Substance use: never Do You Feel Safe in your Home?: Yes Lack of Transportation: No Lack of Food: Never True Current Housing: I Have Housing Concerned About Future Housing: No Difficulty Paying Gas/Electric Bills: No Difficulty Paying for Meds: No Currently Unemployed: No Education: Associate Degree Difficulty w/ Childcare or Family Care: No Spiritual care concerns: No Exam Narrative: GENERAL: Well-appearing, well-nourished, and in no acute distress. HEAD: Normocephalic, atraumatic. ENT: Mucous membranes moist. CHEST: Clear to auscultation. No respiratory distress. HEART: Regular rate and rhythm. Normal peripheral pulses. ABDOMEN: Soft, nontender, nondistended. EXTREMITIES: Normal range of motion. No edema. SKIN: Warm, dry, no rash. NEURO: Alert and oriented x3. PSYCH: Normal mood and affect. Course Course Emergency Course: Patient resting comfortably. He was dehydration as well as C diff infection. Educated patient and family. Admit for observation. Vital Signs Vital signs: Vital Signs Temperature 98 F 04/16/24 10:59 Pulse Rate 113 H 04/16/24 10:59 Respiratory Rate 20 04/16/24 10:59 Blood Pressure 117/49 L 04/16/24 10:59 Pulse Oximetry 98 04/16/24 10:59 Oxygen Delivery Room Air 04/16/24 10:59 Temperature 98 F 04/16/24 10:59 Pulse Rate 94 04/16/24 14:40 Respiratory Rate 19 04/16/24 14:40 Blood Pressure 145/51 H 04/16/24 14:40 Pulse Oximetry 98 04/16/24 14:40 Oxygen Delivery Room Air
[2024-04-16] MEDS: VANCOMYCIN HCL 125 MG ORAL CAPSULE PO ×3 (15:08→22:59)
--- NOTE | 2024-04-16 17:00 | PM.IMHP ---
H&P: HPI History of Present Illness Date/Time: 04/16/24 19:00 Chief Complaint: Weakness and diarrhea. Narrative: This is an 83-year-old male with dementia, hypertension, hyperlipidemia, chronic kidney disease, and hypothyroidism who presented to the emergency department for evaluation of weakness and diarrhea. The patient was admitted to the hospital last month with pelvic fractures and an E coli urinary tract infection. He was discharged to [facility] for rehab and has been home for approximately 1 week. The last 3 days he has developed diarrhea and is becoming increasingly weak. He is having upwards of 7 stools a day which are described as watery and brown in color. He denies fever, chills, sweats, abdominal pain, nausea, and vomiting. He has no known history of C diff or exposure to C diff to his knowledge. In the ED: Blood pressure was as low as 96/50 in the ED but that has improved with IV fluids. He has been afebrile since arrival. Labs are significant for WBC count 14.0, hemoglobin 11.7, sodium 136, potassium 3.2, BUN 30, creatinine 1.90, glucose 111. C. difficile by PCR was positive. He was given a 2 L normal saline bolus and has been started on p.o. vancomycin he is being admitted in this setting for further treatment. Review of Systems Review of Systems: 12 systems were reviewed and are negative except for as per HPI. [facility] Past Medical History Medical History Cerebrovascular accident (1989) Chronic kidney disease, stage 3 Dementia Hyperlipidemia Hypertension Hypothyroidism Family History Family History Other Unknown family medical history Social History Social History Social History: Surrogate medical decision maker: Selam Steven, spouse. Code status: Full code Smoking packs per day: 3 Smoking cigarettes per day: 60.0 Years smoked: 10 Smoking pack-years: 30.00 Smoking status: Former smoker Alcohol intake: never Substance use: never Do You Feel Safe in your Home?: Yes Lack of Transportation: No Lack of Food: Never True Current Housing: I Have Housing Concerned About Future Housing: No Difficulty Paying Gas/Electric Bills: No Difficulty Paying for Meds: No Currently Unemployed: No Education: High School Diploma/GED Difficulty w/ Childcare or Family Care: No Additional living arrangements comments: Lives with in [place]. Additional occupation/education comments: Retired. Spiritual care concerns: No Meds Home Medications and Allergies Home Medications Medication Instructions Recorded Confirmed Type amlodipine 10 mg tablet 10 mg PO DAILY 02/28/24 04/16/24 History atorvastatin 80 mg tablet 80 mg PO DAILY 02/28/24 04/16/24 History levothyroxine 100 mcg tablet 100 mcg PO DAILY 02/28/24 04/16/24 History aspirin 325 mg tablet,delayed 325 mg PO QAM #1 tablet 03/04/24 04/16/24 Rx release hydrochlorothiazide 12.5 mg capsule 12.5 mg PO DAILY 04/16/24 04/16/24 History urea 40 % topical cream 1 applic topical DAILY 04/16/24 04/16/24 History Allergies Allergy/AdvReac Type Severity Reaction Status Date / Time bacitracin AdvReac Unknown Verified 02/28/24 00:33 [From Neosporin ([id number])] neomycin AdvReac Unknown Verified 02/28/24 00:33 [From Neosporin ([id number])] polymyxin B AdvReac Unknown Verified 02/28/24 00:33 [From Neosporin ([id number])] Vital Signs Vital Signs - 24 hr 04/16/24 10:59 04/16/24 11:19 04/16/24 11:20 Temperature 98 F Pulse Rate 113 H 92 102 H Respiratory Rate 20 Blood Pressure 117/49 L 120/51 L 96/50 L Pulse Oximetry 98 Oxygen Delivery Room Air 04/16/24 11:22 04/16/24 11:40 04/16/24 12:16 Temperature Pulse Rate 122 H 112 H 120 H Respiratory Rate 20 20 Blood Pressure 98/45 L 108/49 L 1
[2024-04-16] MEDS: SODIUM CHLORIDE 0.9% IV 1,000 ML 125 ML IV CONT (17:09)
[2024-04-16] MEDS: LACTATED RINGERS 1,000 ML 100 ML IV CONT (18:32)
[2024-04-17] MEDS: POTASSIUM CHLORIDE 20 MEQ ER TABLET 40 MEQ PO ×2 (01:07→09:32)
[2024-04-17] MEDS: LACTATED RINGERS 1,000 ML 100 ML IV CONT (01:08)
[2024-04-17 03:39] VITALS: BP 119/56; PULSE 91; RESP 16; TEMP 36.7; O2SAT 99
[2024-04-17 05:57] LABS: Hemoglobin 10.3 g/dL (14.0-18.0); Mean Corpuscular HGB Conc 30.3 g/dl (32-36); Mean Corpuscular Hemoglobin 28.1 pg (26-34); Mean Corpuscular Volume 92.6 fl (80-100); Mean Platelet Volume 9.3 fl (7.4-10.4); Platelet Count Result 165 k/mm3 (150-375); Red Blood Count 3.67 M/mm3 (4.6-6.20); Red Cell Distribution Width 15.3 % (11.5-14.5); White Blood Count 9.1 K/mm3 (4.5-10.0)
[2024-04-17 06:08] LABS: Anion Gap 7 mmol/L (4-12); Blood Urea Nitrogen 23 mg/dL (9-20); Calcium 8.6 mg/dL (8.4-10.2); Carbon Dioxide 16 mmol/L (22-30); Chloride 113 mmol/L (98-107); Estimated CRCL calculation 37 ml/min; Estimated Glomerular Filt Rate 52; Glucose 100 mg/dL (65-110); Potassium 3.2 mmol/L (3.4-5.0); Sodium 136 mmol/L (137-145)
[2024-04-17] MEDS: LEVOTHYROXINE SODIUM 100 MCG TABLET PO (06:12)
[2024-04-17] MEDS: VANCOMYCIN HCL 125 MG ORAL CAPSULE PO ×4 (06:12→22:54)
[2024-04-17] MEDS: ATORVASTATIN 40 MG TABLET 80 MG PO (09:32)
[2024-04-17] MEDS: ASPIRIN 325 MG ENTERIC TABLET PO (09:32)
[2024-04-17 10:44] VITALS: BP 135/61
[2024-04-17 10:45] VITALS: BP 117/88; BP 125/77
[2024-04-17 14:00] VITALS: BP 136/65; PULSE 88; RESP 16; TEMP 36.5; O2SAT 100
--- NOTE | 2024-04-17 14:06 | PM.IMPN ---
Progress Note: A&P Assessment and Plan (1) C. difficile diarrhea: Code(s): A04.72 - Enterocolitis due to Clostridium difficile, not specified as recurrent Status: Acute (2) Dehydration: Code(s): E86.0 - Dehydration Status: Acute (3) Electrolyte abnormality: Code(s): E87.8 - Other disorders of electrolyte and fluid balance, not elsewhere classified Status: Acute (4) Chronic kidney disease, stage 3: Code(s): N18.30 - Chronic kidney disease, stage 3 unspecified Status: Acute (5) Hypertension: Code(s): I10 - Essential (primary) hypertension Status: Acute (6) Hyperlipidemia: Code(s): E78.5 - Hyperlipidemia, unspecified Status: Acute (7) Hypothyroidism: Code(s): E03.9 - Hypothyroidism, unspecified Status: Acute (8) Dementia: Code(s): F03.90 - Unspecified dementia, unspecified severity, without behavioral disturbance, psychotic disturbance, mood disturbance, and anxiety Status: Acute Plan This is an 83-year-old male who presented to the ED for generalized weakness and diarrhea. Patient was admitted to the hospital last month with pelvic fracture and E coli UTI. He was discharged to [facility] for rehab and has been home for approximately 1 week. The last 3 days he has developed diarrhea and has been becoming increasingly weak. He had about 7 stools a day which is described as watery and brown in color. No fever chills abdominal pain nausea vomiting reported. In the ED blood pressure was low 96/50 but improved with IV fluids. His been afebrile. WBC count 14 hemoglobin 11.7 sodium 136 potassium 3.2 BUN 30 creatinine 1.9. C diff came back positive. A seated 2 L normal saline and has been started on p.o. vancomycin. Abdominal exam is benign. Initiate isolation precautions. ROSANNE on CKD stage 3 much improved with IV resuscitation. Will stop IV fluid today Mild hyponatremia and hypokalemia replace as needed Metabolic acidosis likely due to diarrhea add bicarb History of hypertension hold blood pressure medication as blood pressure are soft on arrival. Hyperlipidemia CKD Hypothyroidism Dementia DVT prophylaxis Code status full code Subjective Date/time seen: 04/17/24 14:06 Interval history: Feeling better. States diarrhea has slowed down. No other complaints. Review of Systems Review of Systems: All systems reviewed & are unremarkable except as noted in HPI and below Exam Narrative: General: Well-developed, nontoxic-appearing male sitting up in the chair in no acute distress. HEENT: PERRL, EOMI. Sclera anicteric. Conjunctiva mildly injected. Oral mucosa is tacky. Neck: Supple. Respiratory: Lungs are clear to auscultation bilaterally. Cardiovascular: Regular rate and rhythm with S1-S2. Occasional ectopy. Gastrointestinal: Abdomen is soft, flat, nontender, and nondistended with slightly hyperactive bowel sounds. No guarding or rebound tenderness. Skin: Warm and dry. No rash or lesions on limited exam. Extremities: No cyanosis, clubbing, or edema. Radial and pedal pulses intact. Neurological: Alert. Cranial nerves 2-12 are grossly intact. No gross focal deficits to casual conversation. Psychiatric: Pleasantly confused and cooperative. Objective Data Vital Signs Vital Signs: Vital Signs - 24 hr 04/16/24 14:40 04/16/24 16:29 04/16/24 19:28 Temperature 97.2 F L Pulse Rate 94 110 H Respiratory Rate 19 17 Blood Pressure 145/51 H 119/67 139/59 L Pulse Oximetry 98 99 04/16/24 19:30 04/16/24 19:29 04/16/24 19:29 Temperature 98 F Pulse Rate 117 H Respiratory Rate 16 Blood Pressure 139/59 L 127/54 L 143/101 H Pulse Oximetry 98 04/17/24 03:39 04/17/24 10:44 04/17/24 10:45 Temperature 98.1 F Pulse Rate 91 Respiratory Rate 16 Blood Pressure 119/56 L 135/61 125/77 Pulse Oximetry 99 04/17/24 10:45 Temperature Pulse Rate Respiratory Rate Blood Pressure 117/88 Puls
[2024-04-17] MEDS: ENOXAPARIN 40 MG/0.4 ML SYRINGE SUB-Q (14:43)
[2024-04-17] MEDS: EUCERIN CREAM 120 GM JAR 1 APPLIC TOPICAL (14:43)
[2024-04-17] MEDS: SODIUM BICARBONATE TAB 650 MG TABLET PO (17:06)
[2024-04-17 20:00] VITALS: BP 146/66; PULSE 86; RESP 20; TEMP 36.7; O2SAT 100
[2024-04-17 20:10] VITALS: BP 130/72; PULSE 91; RESP 20; TEMP 36.7; O2SAT 100
[2024-04-18 04:23] VITALS: BP 144/68; PULSE 100; RESP 18; TEMP 36.4; O2SAT 99
[2024-04-18 04:57] LABS: Basophils Percent Auto 0.6 % (0.2-1.2); Eosinophils Absolute Auto 0.6 K/mm3 (0-0.3); Eosinophils Percent Auto 9.2 % (0-4.4); Hematocrit 35.3 % (42.0-52.0); Hemoglobin 11.1 g/dL (14.0-18.0); Immature Granulocyte Absolute 0.01 K/mm3 (0.00-0.031); Immature Granulocyte Percent A 0.2 % (0-0.5); Lymphocytes Absolute Auto 1.71 K/mm3 (0.9-3.2); Lymphocytes Percent Auto 27.1 % (18.3-44.2); Mean Corpuscular HGB Conc 31.4 g/dl (32-36); Mean Corpuscular Volume 89.1 fl (80-100); Mean Platelet Volume 9.6 fl (7.4-10.4); Monocytes Absolute Auto 0.8 K/mm3 (0.1-0.6); Neutrophils Absolute Auto 3.2 K/mm3 (1.3-6.7); Neutrophils Percent Auto 50.9 % (45.5-73.1); Platelet Count Result 169 k/mm3 (150-375); Red Blood Count 3.96 M/mm3 (4.6-6.20); Red Cell Distribution Width 15.2 % (11.5-14.5); White Blood Count 6.3 K/mm3 (4.5-10.0)
[2024-04-18] MEDS: LEVOTHYROXINE SODIUM 100 MCG TABLET PO (05:03)
[2024-04-18] MEDS: VANCOMYCIN HCL 125 MG ORAL CAPSULE PO ×2 (05:03→11:19)
[2024-04-18 05:10] LABS: Alanine Aminotransferase 16 U/L (6-50); Albumin Level 3.2 g/dL (3.5-5.1); Alkaline Phosphatase 170 U/L (38-126); Anion Gap 8 mmol/L (4-12); Aspartate Amino Transferase 25 U/L (17-59); Bilirubin,Total 0.4 mg/dL (0.2-1.3); Blood Urea Nitrogen 20 mg/dL (9-20); Calcium 8.8 mg/dL (8.4-10.2); Carbon Dioxide 16 mmol/L (22-30); Chloride 114 mmol/L (98-107); Estimated CRCL calculation 44 ml/min; Estimated Glomerular Filt Rate > 60; Glucose 101 mg/dL (65-110); Potassium 3.1 mmol/L (3.4-5.0); Sodium 138 mmol/L (137-145)
[2024-04-18 07:14] VITALS: O2SAT 99
[2024-04-18] MEDS: POTASSIUM CHLORIDE 20 MEQ ER TABLET 40 MEQ PO (08:35)
[2024-04-18] MEDS: SODIUM BICARBONATE TAB 650 MG TABLET PO (08:35)
[2024-04-18] MEDS: ATORVASTATIN 40 MG TABLET 80 MG PO (08:35)
[2024-04-18] MEDS: ASPIRIN 325 MG ENTERIC TABLET PO (08:35)
[2024-04-18] MEDS: EUCERIN CREAM 120 GM JAR 1 APPLIC TOPICAL (08:36)
[2024-04-18] MEDS: ENOXAPARIN 40 MG/0.4 ML SYRINGE SUB-Q (08:36)
[2024-04-18] MEDS: POTASSIUM CHLORIDE 20 MEQ ER TABLET PO (11:21)
--- NOTE | 2024-04-18 12:42 | PM.DS ---
DS: Admitting Diagnosis Discharge Date 04/18/24 Admitting Diagnosis Weakness and diarrhea DS: Discharge Diagnosis Discharge Diagnosis (1) C. difficile diarrhea: Code(s): A04.72 - Enterocolitis due to Clostridium difficile, not specified as recurrent Status: Acute (2) Dehydration: Code(s): E86.0 - Dehydration Status: Acute (3) ROSANNE (acute kidney injury): Code(s): N17.9 - Acute kidney failure, unspecified Status: Acute (4) Electrolyte abnormality: Code(s): E87.8 - Other disorders of electrolyte and fluid balance, not elsewhere classified Status: Acute (5) Chronic kidney disease, stage 3: Code(s): N18.30 - Chronic kidney disease, stage 3 unspecified Status: Acute (6) Hypertension: Code(s): I10 - Essential (primary) hypertension Status: Acute (7) Hyperlipidemia: Code(s): E78.5 - Hyperlipidemia, unspecified Status: Acute (8) Hypothyroidism: Code(s): E03.9 - Hypothyroidism, unspecified Status: Acute (9) Dementia: Code(s): F03.90 - Unspecified dementia, unspecified severity, without behavioral disturbance, psychotic disturbance, mood disturbance, and anxiety Status: Acute DS: Summary Hospital Course Reason for hospitalization: 83yo male with dementia, hypertension, hyperlipidemia, chronic kidney disease, and hypothyroidism who presented to the emergency department for evaluation of weakness and diarrhea. Please see H&P for details Hospital Course: Patient was admitted to the hospital last month with pelvic fracture and E coli UTI. He was discharged on abx to [facility] for rehab and has been home for approximately 1 week. The last 3 days prior to admission, he has developed diarrhea and has been becoming increasingly weak. In the ED blood pressure was low 96/50 but improved with IV fluids. He was afebrile. WBC was 14 and normalized. Hgb low but stable in the 10-11 range. Sodium 136 but normal on repeat. BUN 30 and creatinine 1.9. C diff toxin PCR returned positive. No imaging performed. Abdominal exam was benign. Started on isolation precautions. He was started on IV fluids. Cr trended down to 1.1. Hypokalemia noted and replacement ordered. Metabolic acidosis noted likely due to diarrhea so bicarb added. He has a history of hypertension but his home blood pressure medications were held due to HoTN on admission. His condition improved. He is having fewer BMs today and family feels they can care for him. Stools are becoming more formed. He overall did well and was able to be discharged home on 04/18/24 Status at Discharge Cognitive/behavioral status at discharge: stable Time Spent with Patient Time attestation: Total time spent providing and/or coordinating discharge services: 35 minutes Time spent: Greater than 30 minutes Exam Narrative: AF 98.0 106/60 73 16 100% ra Gen - NARD Chest - CTA bilaterally, nml RR CV - RRR S1/S2 Abd - Soft, NT/ND, Positive BS Ext - No pedal edema Psych - Nml mood and affect Skin - Warm and dry DS: Data Data Completed and Pending Labs on day of discharge: Labs from last 24 hours 04/18/24 04:44 WBC 6.3 RBC 3.96 L Hgb 11.1 L Hct 35.3 L MCV 89.1 MCH 28.0 MCHC 31.4 L RDW 15.2 H Plt Count 169 MPV 9.6 Immature Gran % (Auto) 0.2 Neut % (Auto) 50.9 Lymph % (Auto) 27.1 [place] % (Auto) 12.0 H Eos % (Auto) 9.2 H Baso % (Auto) 0.6 Lymph # (Auto) 1.71 [place] # (Auto) 0.8 H Eos # (Auto) 0.6 H Baso # (Auto) 0.0 Abs Immat Gran (auto) 0.01 Absolute Neuts (auto) 3.2 Absolute Nucleated RBC 0.000 Nucleated RBC % 0.0 Sodium 138 Potassium 3.1 L Chloride 114 H Carbon Dioxide 16 L Anion Gap 8 BUN 20 Creatinine 1.10 Estim Creat Clear Calc 44 Estimated GFR > 60 Glucose 101 Calcium 8.8 Magnesium 2.0 Total Bilirubin 0.4 AST 25 ALT 16 Alkaline Phosphatase 170 H Total Protein 7.0 Albumin 3.2 L Dischar
[2024-04-18 14:00] VITALS: BP 106/60; PULSE 73; RESP 16; TEMP 36.7; O2SAT 100
== END 2024-04-18 15:49 | disposition home or self-care (01) | DRG 372 ==
LOC: ANHED 14:47 → ANH3MED 15:26
PROVIDERS: Internal Medicine; Physician Assistant; Admitting Provider Hospitalist; Emergency Provider Emergency Medicine; PCP Internal Medicine; Visit Provider Internal Medicine
DX: A04.72 Enterocolitis due to Clostridium difficile, not specified as recurrent (principal); E87.1 Hypo-osmolality and hyponatremia; N17.9 Acute kidney failure, unspecified; E86.0 Dehydration; E87.8 Other disorders of electrolyte and fluid balance, not elsewhere classified; I12.9 Hypertensive chronic kidney disease with stage 1 through stage 4 chronic kidney disease, or unspecified chronic kidney disease; N18.30 Chronic kidney disease, stage 3 unspecified; E78.5 Hyperlipidemia, unspecified; E03.9 Hypothyroidism, unspecified; F03.90 Unspecified dementia, unspecified severity, without behavioral disturbance, psychotic disturbance, mood disturbance, and anxiety; E87.6 Hypokalemia; Z87.891 Personal history of nicotine dependence; Z86.73 Personal history of transient ischemic attack (TIA), and cerebral infarction without residual deficits
CPT/HCPCS: 36415; 80048; 80053; 83735; 85025; 85027; 87493; 96360; 96361; 96372; 99285; A9270; G0378; J1650; J7030; J7120

== ENCOUNTER 2024-05-04 10:14 | Observation (INO) | payer MEDICARE, SELFPAY ==
[2024-05-04] VITALS (11 sets, daily range): BP systolic 124–149; BP diastolic 41–82; PULSE 57–98; RESP 12–20; TEMP 36.4–37.2; O2SAT 98–100; BMI 28.8
--- NOTE | ~2024-05-04 | CT_ITS ---
EXAMINATION: CT brain wo con DATE: 05/04/2024 10:57 INDICATION: Syncope. TECHNIQUE: Computed tomography (CT) of the head was performed without intravenous contrast. The mA wa s adjusted according to patient size. Iterative reconstruction technique was employed. The dose-lengt h product was 605.33 mGy-cm. COMPARISON: Head CT 02/27/2024 FINDINGS: There is an old infarct in left temporal occipital region. There are scattered areas of low attenuation in the cerebral white matter. There is no intracranial hemorrhage, acute infarction, or abnormal intracranial mass lesion. The ventricles are normal in size. There is mild mucosal thickenin g in the paranasal sinuses. The orbits are normal. The mastoid air cells are normal. IMPRESSION: 1. 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 2. Stable moderate nonspecific cerebral white matter disease, which likely represents chronic small v essel ischemic disease. Reviewed, dictated and finalized at location A. IMPRESSION: 1. 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 2. Stable moderate nonspecific cerebral white matter disease, which likely repr esents chronic small vessel ischemic disease.
--- NOTE | 2024-05-04 10:23 | ECG_ITS ---
Test Date: 2024-05-04 10:26:45 Measurements Intervals [place] Rate: 77 P: 0 ME: 0 QRS: 0 QRSD: 75 T: 36 QT: 376 QTc: 426 Interpretive Statements NORMAL SINUS RHYTHM WITH FREQUENT PREMATURE ATRIAL CONTRACTIONS ABNORMAL ECG No previous ECG available for comparison Electronically Signed On 05-04-2024 11:00:35 CDT by Sly Mccloud M.D.
[2024-05-04 10:40] LABS: Basophils Absolute Auto 0.1 K/mm3 (0.0-0.1); Eosinophils Absolute Auto 0.1 K/mm3 (0-0.3); Eosinophils Percent Auto 1.8 % (0-4.4); Hematocrit 36.8 % (42.0-52.0); Hemoglobin 11.3 g/dL (14.0-18.0); Immature Granulocyte Absolute 0.02 K/mm3 (0.00-0.031); Immature Granulocyte Percent A 0.3 % (0-0.5); Lymphocytes Absolute Auto 1.43 K/mm3 (0.9-3.2); Lymphocytes Percent Auto 18.1 % (18.3-44.2); Mean Corpuscular HGB Conc 30.7 g/dl (32-36); Mean Corpuscular Hemoglobin 28.4 pg (26-34); Mean Corpuscular Volume 92.5 fl (80-100); Mean Platelet Volume 9.8 fl (7.4-10.4); Monocytes Absolute Auto 0.7 K/mm3 (0.1-0.6); Monocytes Percent Auto 8.9 % (2.6-8.5); Neutrophils Absolute Auto 5.5 K/mm3 (1.3-6.7); Neutrophils Percent Auto 69.9 % (45.5-73.1); Platelet Count Result 187 k/mm3 (150-375); Red Blood Count 3.98 M/mm3 (4.6-6.20); Red Cell Distribution Width 15.5 % (11.5-14.5); White Blood Count 7.9 K/mm3 (4.5-10.0)
[2024-05-04 10:56] LABS: Alanine Aminotransferase 19 U/L (6-50); Albumin Level 3.9 g/dL (3.5-5.1); Alkaline Phosphatase 156 U/L (38-126); Anion Gap 8 mmol/L (4-12); Aspartate Amino Transferase 26 U/L (17-59); Bilirubin,Total 0.6 mg/dL (0.2-1.3); Blood Urea Nitrogen 28 mg/dL (9-20); Calcium 8.6 mg/dL (8.4-10.2); Carbon Dioxide 22 mmol/L (22-30); Chloride 109 mmol/L (98-107); Estimated CRCL calculation 30 ml/min; Estimated Glomerular Filt Rate 41; Glucose 89 mg/dL (65-110); Sodium 139 mmol/L (137-145)
[2024-05-04] MEDS: SODIUM CHLORIDE 0.9% IV 500 ML 999 ML IV CONT (11:00)
[2024-05-04 11:09] LABS: INR 1.1; Prothrombin Time 14.6 Seconds (11.1-14.7)
[2024-05-04 11:10] LABS: NT Pro B Type Natriuretic Pept 724 pg/mL (19.9-100); Troponin I < 0.012 ng/mL (0.000-0.034)
--- NOTE | 2024-05-04 11:51 | ED.SYNCOPE ---
HPI - Syncope General Chief Complaint: Syncope Stated Complaint: syncope Time Seen by Provider: 05/04/24 10:21 Source: patient and EMS Mode of arrival: EMS Limitations: no limitations History of Present Illness HPI narrative: 83-year-old with a history of hypertension, hypothyroidism, CKD stage 3 here with a complaint of having 2 syncopal episodes. Patient states that he was standing at the kitchen sink passed out twice. He denied having any chest pain, shortness of breath. Denies enough nausea vomiting or abdominal pain. MD complaint: almost passed out Prodromal symptoms: none Context: standing up Injuries sustained associated with event: none Current symptoms: none Related Data Home Medications Medication Instructions Recorded Confirmed amlodipine 10 mg tablet 10 mg PO DAILY 02/28/24 04/16/24 atorvastatin 80 mg tablet 80 mg PO DAILY 02/28/24 04/16/24 levothyroxine 100 mcg tablet 100 mcg PO DAILY 02/28/24 04/16/24 hydrochlorothiazide 12.5 mg capsule 12.5 mg PO DAILY 04/16/24 04/16/24 urea 40 % topical cream 1 applic topical DAILY 04/16/24 04/16/24 Allergies Allergy/AdvReac Type Severity Reaction Status Date / Time bacitracin AdvReac Unknown Verified 02/28/24 00:33 [From Neosporin ([id number])] neomycin AdvReac Unknown Verified 02/28/24 00:33 [From Neosporin ([id number])] polymyxin B AdvReac Unknown Verified 02/28/24 00:33 [From Neosporin ([id number])] Review of Systems Review of Systems: All systems reviewed & are unremarkable except as noted in HPI and below Constitutional: Constitutional: Reports no additional constitutional complaints Eyes: Eyes: Reports no additional eye complaints ENT: Reports system reviewed and no additional complaints, except as documented Cardiovascular: Cardiovascular: Reports no additional cardiovascular complaints Respiratory: Respiratory: Reports no additional respiratory complaints Gastrointestinal: Gastrointestinal: Reports no additional gastrointestinal complaints Musculoskeletal: Musculoskeletal: Reports no additional musculoskeletal complaints [facility] Past Medical History Medical History Cerebrovascular accident (1989) Chronic kidney disease, stage 3 Dementia Hyperlipidemia Hypertension Hypothyroidism Family History Family History Other Unknown family medical history Social History Social History Social History: Surrogate medical decision maker: Selam Steven, spouse. Code status: Full code Smoking packs per day: 3 Smoking cigarettes per day: 60.0 Years smoked: 10 Smoking pack-years: 30.00 Smoking status: Former smoker Alcohol intake: never Substance use: never Do You Feel Safe in your Home?: Yes Lack of Transportation: No Lack of Food: Never True Current Housing: I Have Housing Concerned About Future Housing: No Difficulty Paying Gas/Electric Bills: No Difficulty Paying for Meds: No Currently Unemployed: No Education: High School Diploma/GED Difficulty w/ Childcare or Family Care: No Additional living arrangements comments: Lives with in [place]. Additional occupation/education comments: Retired. Spiritual care concerns: No Exam Narrative: GENERAL: Well-appearing, well-nourished, and in no acute distress. HEAD: Normocephalic, atraumatic. EYES: PERRLA and EOMI. ENT: Nares clear, no rhinorrhea or epistaxis. Mucous membranes moist. NECK: Supple. CHEST: Clear to auscultation. No respiratory distress. HEART: Regular rate and rhythm. No murmur heard. Normal peripheral pulses. ABDOMEN: Soft, nontender, nondistended, normal active bowel sounds. EXTREMITIES: Normal range of motion. No edema. SKIN: Warm, dry, no rash. NEURO: No focal deficits. Alert and oriented x3. PSYCH: Normal mood and affect.
--- NOTE | 2024-05-04 12:21 | PC.NURSE ---
Meal tray ordered for patient.
--- NOTE | 2024-05-04 13:15 | ADMGEN ---
This patient, Stephon Steven, was admitted to 3 [facility] Surg Room 306-01 @ 1315. Patient/family oriented to hospital policies and general routines including ID bracelet, bed and alarms, visiting hours, pain management, procedures, bathroom and other care routines, personal items, smoking policy, room service/diet, and visiting hours. Information on how to activate the Rapid Response Team has been discussed. Patient/Family are encouraged to report perceived risks to care and to ask questions if they do not understand what they are told or what they should do.
--- NOTE | 2024-05-04 13:22 | PM.IMHP ---
H&P: HPI History of Present Illness Date/Time: 05/04/24 13:22 Chief Complaint: Syncope Narrative: 83 y/o M presents here with syncope with PMH of CVA, CKD, dementia, HLD, HTN, and hypothyroidism. The patient presents here via EMS from home for further evaluation of syncopal episode. The patient reports he was standing at the kitchen sink doing dishes when he began to feel lightheaded, dizzy and the had syncopal episode. [place] the pre-syncope sensation then woke on the floor. LOC duration was only a few seconds and witnessed by . After episode denied pain, dizziness, or lightheadedness, states he felt normal . Syncope was not accompanied by chest pain, shortness of breath, palpitations, diaphoresis, nausea or vomiting. Does state he was out in the yard for quite awhile this morning and became quite warm. Denies any current diarrhea, however per chart review he was admitted from 04/16 to 04/18 for weakness and diarrhea, found to have c. diff and hypokalemia. Finished course of abx on 04/26. Denies any current complaints. Patient has a hx of HTN, no other cardiac hx. Called for collateral...she reports that they woke up this morning around 0600 and was able to eat his breakfast. Reported to after breakfast that he was feeling dizzy but would not sit down to rest, and had been outside for a good portion of the morning. She reports he is outside puttering around most days. Per , he then fainted but she was able to catch him avoiding a head strike/injury. Did not lose consciousness and was out of it . Called EMS, but patient refused transport. Patient then continued to feel dizzy and not responding/interacting with his . She states that it is not unusual for him to refuse to head advice or listen when it is not something he wants to do, described him as very stubborn. confirms diarrhea has stopped. Appetite has been fine. Initial VS at presentation: 97.6? F, HR 95, RR 20, 129/82, and 100% on RA. ED workup showed: No leukocytosis, hemoglobin 11.3, creatinine 1.6 and GFR 41 (previously 8.1 and he GFR >60 on 04/18/2024), and BNP 724. Review of Systems Review of Systems: All systems reviewed & are unremarkable except as noted in HPI and below PMFSH Past Medical History Medical History Cerebrovascular accident (1989) Chronic kidney disease, stage 3 Dementia Hyperlipidemia Hypertension Hypothyroidism Family History Family History Other Unknown family medical history Social History Social History Social History: Surrogate medical decision maker: Selam Steven, spouse. Code status: Full code Smoking packs per day: 3 Smoking cigarettes per day: 60.0 Years smoked: 10 Smoking pack-years: 30.00 Smoking status: Former smoker Alcohol intake: never Substance use: never Do You Feel Safe in your Home?: Yes Lack of Transportation: No Lack of Food: Never True Current Housing: I Have Housing Concerned About Future Housing: No Difficulty Paying Gas/Electric Bills: No Difficulty Paying for Meds: No Currently Unemployed: No Education: High School Diploma/GED Difficulty w/ Childcare or Family Care: No Additional living arrangements comments: Lives with in [place]. Additional occupation/education comments: Retired. Spiritual care concerns: No Meds Home Medications and Allergies Home Medications Medication Instructions Recorded Confirmed Type amlodipine 10 mg tablet 10 mg PO DAILY 02/28/24 05/04/24 History atorvastatin 80 mg tablet 80 mg PO DAILY 02/28/24 05/04/24 History levothyroxine 100 mcg tablet 100 mcg PO DAILY 02/28/24 05/04/24 History aspirin 325 mg tablet,delayed 325 mg PO QAM #1 tablet 03/04/24 05/04/24 Rx release hydrochlorothiazide 12.5 mg capsule 12.5 mg PO DAILY 04/16/24 05/04/24 History
[2024-05-04] MEDS: SODIUM CHLORIDE 0.9% IV 1,000 ML 75 ML IV CONT (13:58)
[2024-05-04 14:46] LABS: Magnesium 2.3 mg/dL (1.6-2.3)
[2024-05-04 14:58] LABS: Troponin I < 0.012 ng/mL (0.000-0.034)
[2024-05-05] VITALS (9 sets, daily range): BP systolic 150–175; BP diastolic 60–82; PULSE 63–94; RESP 16; TEMP 36.1–36.7; O2SAT 97–100
[2024-05-05 05:38] LABS: Basophils Absolute Auto 0.1 K/mm3 (0.0-0.1); Eosinophils Absolute Auto 0.3 K/mm3 (0-0.3); Eosinophils Percent Auto 4.6 % (0-4.4); Hematocrit 36.1 % (42.0-52.0); Immature Granulocyte Absolute 0.02 K/mm3 (0.00-0.031); Immature Granulocyte Percent A 0.3 % (0-0.5); Lymphocytes Absolute Auto 1.65 K/mm3 (0.9-3.2); Lymphocytes Percent Auto 26.9 % (18.3-44.2); Mean Corpuscular HGB Conc 30.5 g/dl (32-36); Mean Corpuscular Hemoglobin 27.9 pg (26-34); Mean Corpuscular Volume 91.6 fl (80-100); Mean Platelet Volume 9.8 fl (7.4-10.4); Monocytes Absolute Auto 0.6 K/mm3 (0.1-0.6); Monocytes Percent Auto 9.1 % (2.6-8.5); Neutrophils Absolute Auto 3.6 K/mm3 (1.3-6.7); Neutrophils Percent Auto 58.1 % (45.5-73.1); Platelet Count Result 176 k/mm3 (150-375); Red Blood Count 3.94 M/mm3 (4.6-6.20); Red Cell Distribution Width 15.7 % (11.5-14.5); White Blood Count 6.1 K/mm3 (4.5-10.0)
[2024-05-05 05:49] LABS: Alanine Aminotransferase 19 U/L (6-50); Albumin Level 3.7 g/dL (3.5-5.1); Alkaline Phosphatase 168 U/L (38-126); Anion Gap 4 mmol/L (4-12); Aspartate Amino Transferase 26 U/L (17-59); Bilirubin,Total 0.5 mg/dL (0.2-1.3); Blood Urea Nitrogen 23 mg/dL (9-20); Carbon Dioxide 29 mmol/L (22-30); Chloride 110 mmol/L (98-107); Estimated CRCL calculation 30 ml/min; Estimated Glomerular Filt Rate 41; Glucose 95 mg/dL (65-110); Magnesium 2.3 mg/dL (1.6-2.3); Potassium 4.2 mmol/L (3.4-5.0); Sodium 143 mmol/L (137-145)
[2024-05-05] MEDS: SODIUM CHLORIDE 0.9% IV 1,000 ML 75 ML IV CONT (05:49)
[2024-05-05] MEDS: LEVOTHYROXINE SODIUM 100 MCG TABLET PO (05:49)
[2024-05-05] MEDS: amLODIPine BESYLATE 5 MG TABLET 10 MG PO (08:44)
[2024-05-05] MEDS: ACETAMINOPHEN 325 MG TABLET 650 MG PO (08:45)
[2024-05-05] MEDS: ASPIRIN 325 MG ENTERIC TABLET PO (08:45)
[2024-05-05] MEDS: ATORVASTATIN 40 MG TABLET 80 MG PO (08:45)
[2024-05-05] MEDS: hydroCHLOROthiazide 12.5 MG CAPSULE PO (08:45)
[2024-05-05] MEDS: ACIDOPHILUS/BULGARICUS CHEWABLE TABLET 1 TABLET PO (08:45)
[2024-05-05 13:16] LABS: Anion Gap 5 mmol/L (4-12); Blood Urea Nitrogen 20 mg/dL (9-20); Carbon Dioxide 28 mmol/L (22-30); Chloride 109 mmol/L (98-107); Estimated CRCL calculation 36 ml/min; Estimated Glomerular Filt Rate 52; Glucose 104 mg/dL (65-110); Sodium 142 mmol/L (137-145)
--- NOTE | 2024-05-05 13:36 | PM.DS ---
DS: Admitting Diagnosis Discharge Date 05/05/24 Admitting Diagnosis dehydration DS: Discharge Diagnosis Discharge Diagnosis (1) Syncope: Qualifiers: Syncope type: unspecified Qualified Code(s): R55 - Syncope and collapse Code(s): R55 - Syncope and collapse Status: Acute (2) ROSANNE (acute kidney injury): Code(s): N17.9 - Acute kidney failure, unspecified Status: Acute (3) Hypertension: Qualifiers: Hypertension type: primary hypertension Qualified Code(s): I10 - Essential (primary) hypertension Code(s): I10 - Essential (primary) hypertension Status: Acute DS: Summary Hospital Course Hospital Course: 83 y/o M presents here with syncope with PMH of CVA, CKD, dementia, HLD, HTN, and hypothyroidism. The patient presents here via EMS from home for further evaluation of syncopal episode. Does state he was out in the yard for quite awhile this morning and became quite warm. Patient has a hx of HTN, no other cardiac hx. Per , he then fainted but she was able to catch him avoiding a head strike/injury. Did not lose consciousness and was out of it . Called EMS, but patient refused transport. Patient then continued to feel dizzy and not responding/interacting with his . She states that it is not unusual for him to refuse to head advice or listen when it is not something he wants to do, described him as very stubborn. Called EMS, but patient refused transport. Patient then continued to feel dizzy and not responding/interacting with his . She states that it is not unusual for him to refuse to head advice or listen when it is not something he wants to do, described him as very stubborn. confirms diarrhea has stopped. Appetite has been fine. ED workup showed: no leukocytosis, hemoglobin 11.3, creatinine 1.6 and GFR 41 (previously 8.1 and he GFR >60 on 04/18/2024), and BNP 724. Patient was started on IV fluids. Repeat BUN and creatinine 20/1.3. Patient improved with IV fluids. Encouraged increased water intake and not being outdoors for long periods of time without taking a break, rehydrating or sitting in the shade. Patient's symptoms likely due to heat exhaustion/ dehydration. His labs and vitals and improved he is medically clear for discharge. Time Spent with Patient Time attestation: Total time spent providing and/or coordinating discharge services: Exam Narrative: GENERAL: Comfortable, no acute distress HENMT: moist mucous membranes EYES: EOM intact b/l NECK: no lymphadenopathy RESPIRATORY: clear to auscultation, no increased respiratory effort CARDIO: Regular rate and rhythm GI: soft, nontender, bowel sounds present SKIN/EXTREMITIES: no rashes, no edema, no redness or tenderness NEURO: PROM intact, answers questions appropriately, A&O x4 DS: Data Data Completed and Pending Labs on day of discharge: Labs from last 24 hours 05/05/24 05/05/24 05/04/24 12:51 05:07 14:24 WBC 6.1 RBC 3.94 L Hgb 11.0 L Hct 36.1 L MCV 91.6 MCH 27.9 MCHC 30.5 L RDW 15.7 H Plt Count 176 MPV 9.8 Immature Gran % (Auto) 0.3 Neut % (Auto) 58.1 Lymph % (Auto) 26.9 [place] % (Auto) 9.1 H Eos % (Auto) 4.6 H Baso % (Auto) 1.0 Lymph # (Auto) 1.65 [place] # (Auto) 0.6 Eos # (Auto) 0.3 Baso # (Auto) 0.1 Abs Immat Gran (auto) 0.02 Absolute Neuts (auto) 3.6 Absolute Nucleated RBC 0.000 Nucleated RBC % 0.0 Sodium 142 143 Potassium 4.0 4.2 Chloride 109 H 110 H Carbon Dioxide 28 29 Anion Gap 5 4 BUN 20 23 H Creatinine 1.30 1.60 H Estim Creat Clear Calc 36 30 Estimated GFR 52 L 41 L Glucose 104 95 Calcium 9.0 9.0 Magnesium 2.3 Cancelled Total Bilirubin 0.5 AST 26 ALT 19 Alkaline Phosphatase 168 H Troponin I < 0.012 Total Protein 7.0 Albumin 3.7 05/04/24 14:24 WBC RBC Hgb Hct MCV MCH MCHC RDW Plt Count MP
== END 2024-05-05 15:40 | disposition home or self-care (01) ==
LOC: ANHED 11:59 → ANH3MEDSUR 12:36
PROVIDERS: Internal Medicine Critical Care Medicine; Student in an Organized Health Care Education/Training Program; Admitting Provider Hospitalist; Emergency Provider Family Medicine; PCP Internal Medicine; Visit Provider Hospitalist
DX: R55 Syncope and collapse (principal); N17.9 Acute kidney failure, unspecified; I12.9 Hypertensive chronic kidney disease with stage 1 through stage 4 chronic kidney disease, or unspecified chronic kidney disease; E03.9 Hypothyroidism, unspecified; N18.30 Chronic kidney disease, stage 3 unspecified; E78.5 Hyperlipidemia, unspecified; F03.90 Unspecified dementia, unspecified severity, without behavioral disturbance, psychotic disturbance, mood disturbance, and anxiety; Z87.891 Personal history of nicotine dependence; Z86.73 Personal history of transient ischemic attack (TIA), and cerebral infarction without residual deficits
CPT/HCPCS: 36415; 70450; 80048; 80053; 83735; 83880; 84484; 85025; 85610; 93005; 96360; 96361; 99285; A9270; G0378; J7030; J7040

== ENCOUNTER 2024-07-22 17:33 | Inpatient (IN) | payer MEDICARE, SELFPAY ==
--- NOTE | ~2024-07-22 | XR_ITS ---
XR hip LT 2V w AP pelvis DATE: 07/22/2024 19:26 INDICATION: Fall. Hip pain. TECHNIQUE: AP pelvis. AP and lateral views COMPARISON: None FINDINGS: There is a minimally anterosuperiorly displaced left subcapital femoral neck fracture. No recent pelvic fracture. Old healed right superior and inferior pubic ramus fractures. Normal alignment at the sacroiliac joints and pubic symphysis. IMPRESSION: Left subcapital femoral neck fracture Reviewed, dictated and finalized at location A.
--- NOTE | ~2024-07-22 | US_ITS ---
BILATERAL LOWER EXTREMITY VENOUS ULTRASOUND Ordering provider: Valeria Rodriguez History: . Bilateral lower extremity edema . Comparison: None. FINDINGS: RIGHT LOWER EXTREMITY VEINS: --COMMON FEMORAL: Patent and free of thrombus. Normal compressibility, phasic flow and augmentation. --PROXIMAL SUPERFICIAL FEMORAL: Patent and free of thrombus. Normal compressibility, phasic flow and augmentation. --DISTAL SUPERFICIAL FEMORAL: Patent and free of thrombus. Normal compressibility, phasic flow and au gmentation. --POPLITEAL: Patent and free of thrombus. Normal compressibility, phasic flow and augmentation. --POSTERIOR TIBIAL: Patent and free of thrombus. Normal compressibility, phasic flow and augmentation . LEFT LOWER EXTREMITY VEINS: --COMMON FEMORAL: Patent and free of thrombus. Normal compressibility, phasic flow and augmentation. --PROXIMAL SUPERFICIAL FEMORAL: Patent and free of thrombus. Normal compressibility, phasic flow and augmentation. --DISTAL SUPERFICIAL FEMORAL: Patent and free of thrombus. Normal compressibility, phasic flow and au gmentation. --POPLITEAL: Patent and free of thrombus. Normal compressibility, phasic flow and augmentation. --POSTERIOR TIBIAL: Patent and free of thrombus. Normal compressibility, phasic flow and augmentation . IMPRESSION: Negative bilateral lower extremity venous US. No deep vein thrombosis. Reviewed, dictated and finalized at location A.
--- NOTE | ~2024-07-22 | XR_ITS ---
XR chest 1V DATE: 07/22/2024 19:26 INDICATION: Fall. Left subcapital femoral neck fracture. Preoperative evaluation. TECHNIQUE: AP view COMPARISON: 02/27/2024 AP chest FINDINGS: Cardiomegaly. Aortic calcification and unfolding. Chronic interstitial changes are noted in both lungs. No interval pulmonary consolidation, pleural ef fusion, pulmonary vascular congestion or pneumothorax is detected. IMPRESSION: Cardiomegaly Aortic atherosclerosis No active disease or significant change since 02/27/2024 Reviewed, dictated and finalized at location A.
--- NOTE | ~2024-07-22 | XR_ITS ---
EXAM: XR hip LT min 2V DATE: 07/24/2024 16:39 HISTORY: POST LEFT BIPOLAR HIP . COMPARISON: 07/22/2024. FINDINGS: Interval bipolar left arthroplasty, hardware in good position. Postsurgical changes in the soft tissues. No unexpected radiopaque foreign body. IMPRESSION: Expected postsurgical changes, with no radiographic evidence of procedure or hardware rel ated complication. Reviewed, dictated and finalized at location K. IMPRESSION: Expected postsurgical changes, with no radiographic evidence of pro cedure or hardware related complication.
--- NOTE | ~2024-07-22 | CT_ITS ---
EXAMINATION: CT brain wo con DATE: 07/22/2024 20:02 INDICATION: Fall. Struck head. TECHNIQUE: Computed tomography (CT) of the head was performed without intravenous contrast. The mA wa s adjusted according to patient size. Iterative reconstruction technique was employed. Exam dose: 68 1.00 mGy-cm total exam DLP. COMPARISON: None FINDINGS: Bilateral carotid siphon calcifications. Bilateral vertebral and basilar artery calcificati ons. Bilateral basal ganglia calcifications. There is nonspecific diminished attenuation of the cerebral white matter. There is an old left occipital cerebrovascular accident. Moderate central and cortical cerebral and cerebellar atrophy. No intracranial mass lesion or hemorrhage or recent cerebrovascular accident is detected. No midline shift or mass effect. No subdural or epidural hematoma. The paranasal sinuses and mastoid air cells are normally developed and aerated. No fracture or bone destruction of the cranial vault. 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 Reviewed, dictated and finalized at location A. IMPRESSION: Cerebral atherosclerosis and chronic ischemic changes of the cereb ral white matter Old left occipital cerebrovascular accident Cerebral and cerebellar atrophy No skull fracture or acute intracranial finding
--- NOTE | ~2024-07-22 | CT_ITS ---
EXAMINATION: CT cervical spine wo con DATE: 07/22/2024 20:02 INDICATION: Fall. Head and neck injuries. TECHNIQUE: Computed tomography (CT) of the cervical spine was performed without intravenous contrast. Automated exposure control and iterative reconstruction technique were employed. Exam dose: 213.51 mGy-cm total exam DLP. COMPARISON: None FINDINGS: There is levoscoliosis of the cervical spine C1 and C2 are normally aligned and the odontoid process is intact. No fracture or dislocation or lock ed facet or prevertebral soft tissue swelling. There is multilevel degenerative disc disease, including moderately severe degenerative disc disease at C3-4 with mild retrolisthesis and moderately severe degenerative disease at C5-6 and C6-7. There is degenerative change at the apophyseal joints, more prominent on the right. Uncovertebral joint spurring is noted bilaterally at C3-4, especially on the right, at C4-5, C5-6, pr imarily on the right and bilaterally at C6-7. Emphysematous changes are noted at the lung apices. IMPRESSION: Moderately severe cervical spondylosis; no fracture or dislocation or locked facet Reviewed, dictated and finalized at Location A. Reviewed, dictated and finalized at location A.
[2024-07-22 17:39] VITALS: BP 156/52; PULSE 86; RESP 18; TEMP 36.6; O2SAT 100
--- NOTE | 2024-07-22 20:31 | PM.IMHP ---
H&P: HPI History of Present Illness Date/Time: 07/22/24 20:31 Chief Complaint: fall Narrative: XR hip LT 2V w AP pelvis DATE: 07/22/2024 19:26 INDICATION: Fall. Hip pain. TECHNIQUE: AP pelvis. AP and lateral views COMPARISON: None FINDINGS: There is a minimally anterosuperiorly displaced left subcapital femoral neck fracture. No recent pelvic fracture. Old healed right superior and inferior pubic ramus fractures. Normal alignment at the sacroiliac joints and pubic symphysis. IMPRESSION: Left subcapital femoral neck fracture XR chest 1V DATE: 07/22/2024 19:26 INDICATION: Fall. Left subcapital femoral neck fracture. Preoperative evaluation. TECHNIQUE: AP view COMPARISON: 02/27/2024 AP chest FINDINGS: Cardiomegaly. Aortic calcification and unfolding. Chronic interstitial changes are noted in both lungs. No interval pulmonary consolidation, pleural effusion, pulmonary vascular congestion or pneumothorax is detected. IMPRESSION: Cardiomegaly Aortic atherosclerosis No active disease or significant change since 02/27/2024 EXAMINATION: CT brain wo con DATE: 07/22/2024 20:02 INDICATION: Fall. Struck head. TECHNIQUE: Computed tomography (CT) of the head was performed without intravenous contrast. The mA was adjusted according to patient size. Iterative reconstruction technique was employed. Exam dose: 681.00 mGy-cm total exam DLP. COMPARISON: None FINDINGS: Bilateral carotid siphon calcifications. Bilateral vertebral and basilar artery calcifications. Bilateral basal ganglia calcifications. There is nonspecific diminished attenuation of the cerebral white matter. There is an old left occipital cerebrovascular accident. Moderate central and cortical cerebral and cerebellar atrophy. No intracranial mass lesion or hemorrhage or recent cerebrovascular accident is detected. No midline shift or mass effect. No subdural or epidural hematoma. The paranasal sinuses and mastoid air cells are normally developed and aerated. No fracture or bone destruction of the cranial vault. 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 Code status: Full code Smoking packs per day: 3 Smoking cigarettes per day: 60.0 Years smoked: 10 Smoking pack-years: 30.00 Smoking status: Former smoker Alcohol intake: never Substance use: never Do You Feel Safe in your Home?: Yes Lack of Transportation: No Lack of Food: Never True Current Housing: I Have Housing Concerned About Future Housing: No Difficulty Paying Gas/Electric Bills: No Difficulty Paying for Meds: No Currently Unemployed: No Education: High School Diploma/GED Difficulty w/ Childcare or Family Care: No Additional living arrangements comments: Lives with in [place]. Additional occupation/education comments: Retired. Spiritual care concerns: No Meds Home Medications and Allergies Home Medications Medication Instructions Recorded Confirmed Type amlodipine 10 mg tablet 10 mg PO DAILY 02/28/24 05/04/24 History atorvastatin 80 mg tablet 80 mg PO DAILY 02/28/24 05/04/24 History levothyroxine 100 mcg tablet 100 mcg PO DAILY 02/28/24 05/04/24 History aspirin 325 mg tablet,delayed 325 mg PO QAM #1 tablet 03/04/24 05/04/24 Rx release
--- NOTE | 2024-07-22 20:45 | PM.IMHP ---
H&P: HPI History of Present Illness Date/Time: 07/22/24 20:45 Chief Complaint: Left hip pain after fall. Narrative: This is an 83-year-old male with dementia, hypertension, hyperlipidemia, chronic kidney disease, and hypothyroidism who presented to the emergency department for evaluation of left hip pain after a fall. The patient and his family provide the following history. They were at a family gathering this afternoon and the patient reportedly tripped while walking down two outdoor steps, landing on his buttock and back. He had immediate pain in the left hip and he was brought in for evaluation. He hit the back of his head gingerly and he did not lose consciousness. He denies antecedent symptoms prior to the fall. Family members state that he does not use a cane or a walker and he seems to walk with a slow somewhat shuffling gait and has a history of falls. In fact he was in the hospital earlier this summer with pelvic fractures. He denies recent cold and flu symptoms, fever, chest pain, pleuritic pain, shortness a breath, nausea, vomiting, diarrhea, and dysuria. In the ED: Vital signs were stable on arrival. Labs are pending at this time. CT of the brain and cervical spine were without acute findings. Chest x-ray showed no active disease. Hip and pelvis x-ray showed a left subcapital femoral neck fracture. The patient is being admitted in this setting for pain control and orthopedic consultation for repair. Review of Systems Review of Systems: 12 systems were reviewed and are negative except for as per HPI. [facility] Past Medical History Medical History (Updated 07/22/24 @ 22:33 by Valeria Rodriguez PA-C) C. difficile diarrhea Cerebrovascular accident (1989) Chronic kidney disease, stage 3 Dementia Hyperlipidemia Hypertension Hypothyroidism Family History Family History Other Unknown family medical history Social History Social History Social History: Surrogate medical decision maker: Selammagalys Steven, spouse. Code status: Full code Smoking packs per day: 3 Smoking cigarettes per day: 60.0 Years smoked: 10 Smoking pack-years: 30.00 Smoking status: Former smoker Alcohol intake: never Substance use: never Do You Feel Safe in your Home?: Yes Lack of Transportation: No Lack of Food: Never True Current Housing: I Have Housing Concerned About Future Housing: No Difficulty Paying Gas/Electric Bills: No Difficulty Paying for Meds: No Currently Unemployed: No Education: High School Diploma/GED Difficulty w/ Childcare or Family Care: No Additional living arrangements comments: Lives with in [place]. Additional occupation/education comments: Retired. Spiritual care concerns: No Meds Home Medications and Allergies Home Medications Medication Instructions Recorded Confirmed Type amlodipine 10 mg tablet 10 mg PO DAILY 02/28/24 07/22/24 History atorvastatin 80 mg tablet 80 mg PO DAILY 02/28/24 07/22/24 History levothyroxine 100 mcg tablet 100 mcg PO DAILY 02/28/24 07/22/24 History aspirin 325 mg tablet,delayed 325 mg PO QAM #1 tablet 03/04/24 07/22/24 Rx release hydrochlorothiazide 12.5 mg capsule 12.5 mg PO DAILY 04/16/24 07/22/24 History Lactobacillus acidophilus 100 mg PO DAILY 05/04/24 07/22/24 History Allergies Allergy/AdvReac Type Severity Reaction Status Date / Time bacitracin AdvReac Unknown Verified 07/22/24 19:19 [From Neosporin ([id number])] neomycin AdvReac Unknown Verified 07/22/24 19:19 [From Neosporin ([id number])] polymyxin B AdvReac Unknown Verified 07/22/24 19:19 [From Neosporin ([id number])] Vital Signs Vital Signs - 24 hr 07/22/24 17:39 Temperature 97.8 F Pulse Rate 86 Respiratory Rate 18 Blood Pressure 156/52 H Pulse Oximetry 100 Oxygen Delivery Room Air Exam
[2024-07-22] MEDS: MORPHINE SULFATE (*CRX) 2 MG/ML INJ IV PUSH (20:50)
[2024-07-22 21:32] LABS: Basophils Percent Auto 0.3 % (0.2-1.2); Eosinophils Absolute Auto 0.3 K/mm3 (0-0.3); Eosinophils Percent Auto 2.4 % (0-4.4); Hematocrit 40.2 % (42.0-52.0); Hemoglobin 12.7 g/dL (14.0-18.0); Immature Granulocyte Absolute 0.05 K/mm3 (0.00-0.031); Immature Granulocyte Percent A 0.4 % (0-0.5); Lymphocytes Absolute Auto 1.26 K/mm3 (0.9-3.2); Mean Corpuscular HGB Conc 31.6 g/dl (32-36); Mean Corpuscular Hemoglobin 28.5 pg (26-34); Mean Corpuscular Volume 90.3 fl (80-100); Mean Platelet Volume 9.1 fl (7.4-10.4); Monocytes Absolute Auto 0.8 K/mm3 (0.1-0.6); Monocytes Percent Auto 6.6 % (2.6-8.5); Neutrophils Absolute Auto 9.1 K/mm3 (1.3-6.7); Neutrophils Percent Auto 79.3 % (45.5-73.1); Platelet Count Result 182 k/mm3 (150-375); Red Blood Count 4.45 M/mm3 (4.6-6.20); Red Cell Distribution Width 14.9 % (11.5-14.5); White Blood Count 11.4 K/mm3 (4.5-10.0)
[2024-07-22 21:35] VITALS: BP 143/59; PULSE 55; RESP 20; TEMP 37.1; O2SAT 99
[2024-07-22 21:41] LABS: Anion Gap 8 mmol/L (4-12); Blood Urea Nitrogen 43 mg/dL (9-20); Calcium 8.9 mg/dL (8.4-10.2); Carbon Dioxide 27 mmol/L (22-30); Chloride 103 mmol/L (98-107); Estimated CRCL calculation 28 ml/min; Estimated Glomerular Filt Rate 38; Glucose 110 mg/dL (65-110); Potassium 3.8 mmol/L (3.4-5.0); Sodium 138 mmol/L (137-145)
--- NOTE | 2024-07-22 22:03 | ED.LOWEXIN ---
HPI - Extremity Injury (Lower) General Chief Complaint: Extremity Injury, Lower Stated Complaint: GLF, LEFT HIP PAIN, -HI/-LOC Time Seen by Provider: 07/22/24 19:03 History of Present Illness HPI Narrative: Patient tripped on a step as he was walking downstairs and fell down 1 step, landing mostly on his left hip with pain to left hip, he did slightly bump his head but denies any headache. Related Data Home Medications Medication Instructions Recorded Confirmed amlodipine 10 mg tablet 10 mg PO DAILY 02/28/24 05/04/24 atorvastatin 80 mg tablet 80 mg PO DAILY 02/28/24 05/04/24 levothyroxine 100 mcg tablet 100 mcg PO DAILY 02/28/24 05/04/24 hydrochlorothiazide 12.5 mg capsule 12.5 mg PO DAILY 04/16/24 05/04/24 Lactobacillus acidophilus 100 mg PO DAILY 05/04/24 05/04/24 Allergies Allergy/AdvReac Type Severity Reaction Status Date / Time bacitracin AdvReac Unknown Verified 07/22/24 19:19 [From Neosporin ([id number])] neomycin AdvReac Unknown Verified 07/22/24 19:19 [From Neosporin ([id number])] polymyxin B AdvReac Unknown Verified 07/22/24 19:19 [From Neosporin ([id number])] Review of Systems Review of Systems: All systems reviewed & are unremarkable except as noted in HPI and below PMFSH Past Medical History Medical History Cerebrovascular accident (1989) Chronic kidney disease, stage 3 Dementia Hyperlipidemia Hypertension Hypothyroidism Family History Family History Other Unknown family medical history Social History Social History Social History: Surrogate medical decision maker: Selam Steven, spouse. Code status: Full code Smoking packs per day: 3 Smoking cigarettes per day: 60.0 Years smoked: 10 Smoking pack-years: 30.00 Smoking status: Former smoker Alcohol intake: never Substance use: never Do You Feel Safe in your Home?: Yes Lack of Transportation: No Lack of Food: Never True Current Housing: I Have Housing Concerned About Future Housing: No Difficulty Paying Gas/Electric Bills: No Difficulty Paying for Meds: No Currently Unemployed: No Education: High School Diploma/GED Difficulty w/ Childcare or Family Care: No Additional living arrangements comments: Lives with in [place]. Additional occupation/education comments: Retired. Spiritual care concerns: No Exam Narrative: EXAMINATION OF ORGAN SYSTEMS/BODY AREAS: Constitutional: Vital signs per nursing GENERAL:[No acute distress, non-toxic appearing.] HEAD: Normal with no signs of head trauma. EYES: EOMI, conjunctiva normal ENT: Hearing grossly intact LUNGS: Nonlabored breathing. HEART: [Regular rate and rhythm], normal perfusion to left lower extremity ABD: [Soft], [nontender to palpation] EXT: Left hip slightly rotated/foreshortened SKIN: Dermatitis lower legs NEURO: [Alert and oriented x 3. No gross focal sensory or strength deficits.] PSYCH: Normal affect Course Vital Signs Vital signs: Vital Signs Temperature 97.8 F 07/22/24 17:39 Pulse Rate 86 07/22/24 17:39 Respiratory Rate 18 07/22/24 17:39 Blood Pressure 156/52 H 07/22/24 17:39 Pulse Oximetry 100 07/22/24 17:39 Oxygen Delivery Room Air 07/22/24 17:39 Temperature 98.7 F 07/22/24 21:35 Pulse Rate 55 L 07/22/24 21:35 Respiratory Rate 20 07/22/24 21:35 Blood Pressure 143/59 H 07/22/24 21:35 Pulse Oximetry 99 07/22/24 21:35 Oxygen Delivery Room Air 07/22/24 17:39 MDM - Extremity Injury (Lower) MDM Narrative Medical decision making narrative: 84-year-old male presents after mechanical fall down steps, with hip pain with movement. Denies any other pain anywhere else, since he did have a head injury I will also obtain a CT head and C-spine, chest and pelvis x-ray due to fal
--- NOTE | 2024-07-22 22:17 | PC.NURSE ---
2217-REPORT TO [facility]
--- NOTE | 2024-07-22 22:30 | PC.NURSE ---
RN left a message for patient's spouse, Selam, to complete admission. Current admission assessment completed via recall, unable to confirm at present.
[2024-07-22 22:40] VITALS: BP 167/57; PULSE 87; RESP 20; TEMP 36.6; O2SAT 100; O2SAT 99
[2024-07-22 22:41] VITALS: BMI 22.3
--- NOTE | 2024-07-23 00:27 | ADMGEN ---
This patient, Stephon Steven, was admitted to Medical Room 253-01. Patient/family oriented to hospital policies and general routines including ID bracelet, bed and alarms, visiting hours, pain management, procedures, bathroom and other care routines, personal items, smoking policy, room service/diet, and visiting hours. Information on how to activate the Rapid Response Team has been discussed. Patient/Family are encouraged to report perceived risks to care and to ask questions if they do not understand what they are told or what they should do.
[2024-07-23 05:41] VITALS: BP 138/66; PULSE 81; RESP 18; TEMP 36.9; O2SAT 99
[2024-07-23 06:10] LABS: Hemoglobin 12.4 g/dL (14.0-18.0); Mean Corpuscular HGB Conc 31.8 g/dl (32-36); Mean Corpuscular Hemoglobin 28.6 pg (26-34); Mean Corpuscular Volume 90.1 fl (80-100); Mean Platelet Volume 9.3 fl (7.4-10.4); Platelet Count Result 171 k/mm3 (150-375); Red Blood Count 4.33 M/mm3 (4.6-6.20); White Blood Count 10.6 K/mm3 (4.5-10.0)
[2024-07-23 06:23] LABS: Anion Gap 7 mmol/L (4-12); Blood Urea Nitrogen 33 mg/dL (9-20); Calcium 9.2 mg/dL (8.4-10.2); Carbon Dioxide 31 mmol/L (22-30); Chloride 102 mmol/L (98-107); Estimated CRCL calculation 31 ml/min; Estimated Glomerular Filt Rate 44; Glucose 120 mg/dL (65-110); Magnesium 2.3 mg/dL (1.6-2.3); Potassium 4.4 mmol/L (3.4-5.0); Sodium 140 mmol/L (137-145)
[2024-07-23 08:00] LABS: Free T4 Free Thyroxine Reflex 0.92 ng/dL (0.78-2.19)
[2024-07-23 08:43] VITALS: O2SAT 99
[2024-07-23 09:07] LABS: Total Triiodothyronine (T3) 0.96 NG/ML (0.97-1.69)
[2024-07-23] MEDS: ATORVASTATIN 40 MG TABLET 80 MG PO (09:10)
[2024-07-23] MEDS: LEVOTHYROXINE SODIUM 100 MCG TABLET PO (09:10)
--- NOTE | 2024-07-23 09:28 | PM.IMPN ---
Progress Note: A&P Assessment and Plan (1) Subcapital fracture of left femur: Code(s): S72.012A - Unspecified intracapsular fracture of left femur, initial encounter for closed fracture Status: Acute Assessment and Plan: Orthopedic referral for repair. Add NS@ 100 ml/hr while NPO. (2) Lower extremity edema: Code(s): R60.0 - Localized edema Status: Acute Assessment and Plan: LE dopplers ordered. Monitor legs. (3) Chronic kidney disease, stage 3: Qualifiers: Chronic kidney disease stage 3 subtype: stage 3b (GFR 30-44) Qualified Code(s): N18.32 - Chronic kidney disease, stage 3b Code(s): N18.30 - Chronic kidney disease, stage 3 unspecified Status: Acute Assessment and Plan: BUN 33, Creatinine 1.50, and GFR 44. Monitor labs and I&O. (4) Dementia: Code(s): F03.90 - Unspecified dementia, unspecified severity, without behavioral disturbance, psychotic disturbance, mood disturbance, and anxiety Status: Acute Assessment and Plan: Reorient patient to room and call light. Remind patient to not get up without assistance. (5) Dermatitis: Code(s): L30.9 - Dermatitis, unspecified Status: Acute Assessment and Plan: Wound care consult. Thick plaques of yeast and dry skin noted to heels, lower legs and tops of feet. Received order to wash legs and feet with warm soapy water to help soften and remove the large plaques, then apply Clear Antifungal barrier cream every 12 hours to the skin to help decrease/ prevent yeast production, soothe the tissue with aloe and provide a barrier to skin from exudate and other fluids to promote healing. Miconazole Nitrate 2% Q 12 bilateral lower legs and feet maceration. Plan The patient presented to the emergency department for evaluation of left hip pain after a fall as detailed in HPI. Labs, imaging, EKG, and all reports were personally reviewed. He has a left subcapital hip fracture and he will be NPO after midnight for probable repair tomorrow per Dr. Iqbal. Analgesics are available as needed. He has bilateral lower extremity edema which states is fairly chronic however will obtain lower extremity venous Doppler ultrasounds to rule out DVT. Preop labs and EKG are pending. Blood pressures were reviewed and they are stable. His home medications will be reviewed and resumed as appropriate. Findings and treatment plan were discussed with the patient and his family. Questions were solicited and answered to satisfaction. The patient's medical management will be taken over by the hospitalist team in a.m. Subjective Date/time seen: 07/23/24 09:28 Interval history: This is an 83-year-old male with dementia, hypertension, hyperlipidemia, chronic kidney disease, and hypothyroidism who presented to the emergency department for evaluation of left hip pain after a fall. The patient and his family provide the following history. They were at a family gathering this afternoon and the patient reportedly tripped while walking down two outdoor steps, landing on his buttock and back. He had immediate pain in the left hip and he was brought in for evaluation. He hit the back of his head gingerly and he did not lose consciousness. He denies antecedent symptoms prior to the fall. Family members state that he does not use a cane or a walker and he seems to walk with a slow somewhat shuffling gait and has a history of falls. In fact he was in the hospital earlier this summer with pelvic fractures. He denies recent cold and flu symptoms, fever, chest pain, pleuritic pain, shortness a breath, nausea, vomiting, diarrhea, and dysuria. Hip and pelvis x-ray showed a left subcapital femoral neck fracture. The patient is being admitted in this setting for pain control and orthopedic consultation for repair. Reports no pain when still but pain with movement. NPO for possible surgery. Review of Systems Cardiovascular: Cardiovascular: Denies
[2024-07-23 11:44] VITALS: BMI 22.3
[2024-07-23 14:00] VITALS: BP 141/44; PULSE 81; RESP 18; TEMP 36.4; O2SAT 100
[2024-07-23] MEDS: SODIUM CHLORIDE 0.9% IV 1,000 ML 100 ML IV CONT (14:35)
--- NOTE | 2024-07-23 16:45 | PC.NURSE ---
Addendum entered by Kaela Abbott RN 07/23/24 17:01: Spoke with Dr. Iqbal, okay for patient to eat NPO at midnight for surgery tomorrow Original Note: Unable to reach surgery related to possible hip repair today. Patient has been NPO in preparation for possible surgery. Attempted to contact office and received no response from surgeon, just that it was noted by the office member that surgery would likely be scheduled for 07/24 afternoon. Attempted to call Dr. Iqbal directly related to diet order since he is still currently not on schedule for 07/22 and has been NPO all day-call was sent to voicemail. Patient very upset and requesting to eat.
--- NOTE | 2024-07-23 17:05 | PM.CNOR ---
Assessment and Plan Assessment and plan (1) Subcapital fracture of left femur: Qualifiers: Encounter type: initial encounter Fracture type: closed Qualified Code(s): S72.012A - Unspecified intracapsular fracture of left femur, initial encounter for closed fracture Code(s): S72.012A - Unspecified intracapsular fracture of left femur, initial encounter for closed fracture Status: Acute (2) Dermatitis: Code(s): L30.9 - Dermatitis, unspecified Status: Acute Plan Displaced left hip femoral neck fracture will benefit from bipolar hemiarthroplasty. Risks benefits and alternatives reviewed with the patient and his . History of Present Illness HPI Consult date: 07/23/24 Chief complaint: L hip fx Narrative: 84-year-old patient with dementia complains of acute left hip pain after a fall. Comfortable at rest. No numbness, tingling, or other associated injuries. Review of Systems Review of Systems: Denies loss of consciousness. Bilateral leg and feet eczematous condition with flaking skin and redness. All systems reviewed & are unremarkable except as noted in HPI and below PMFSH Past Medical History Medical History (Updated 07/23/24 @ 17:09 by Nils Iqbal MD) C. difficile diarrhea Cerebrovascular accident (1989) Chronic kidney disease, stage 3 Dementia Hyperlipidemia Hypertension Hypothyroidism Family History Family History Other Unknown family medical history Social History Social History Social History: Surrogate medical decision maker: Selam Steven, spouse. Code status: Full code Smoking packs per day: 3 Smoking cigarettes per day: 60.0 Years smoked: 10 Smoking pack-years: 30.00 Smoking status: Former smoker Tobacco type: cigarettes Alcohol intake: never Substance use: never Do You Feel Safe in your Home?: Yes Lack of Transportation: No Lack of Food: Never True Current Housing: I Have Housing Concerned About Future Housing: No Difficulty Paying Gas/Electric Bills: No Difficulty Paying for Meds: No Currently Unemployed: No Education: High School Diploma/GED Difficulty w/ Childcare or Family Care: No Additional living arrangements comments: Lives with in [place]. Additional occupation/education comments: Retired. Spiritual care concerns: No Meds Home Medications and Allergies Home Medications Medication Instructions Recorded Confirmed Type amlodipine 10 mg tablet 10 mg PO DAILY 02/28/24 07/23/24 History atorvastatin 80 mg tablet 80 mg PO DAILY 02/28/24 07/23/24 History levothyroxine 100 mcg tablet 100 mcg PO DAILY 02/28/24 07/23/24 History aspirin 325 mg tablet,delayed 325 mg PO QAM #1 tablet 03/04/24 07/23/24 Rx release hydrochlorothiazide 12.5 mg capsule 12.5 mg PO DAILY 04/16/24 07/23/24 History Centrum Silver Men 1 tab-cap PO DAILY 07/23/24 07/23/24 History Allergies Allergy/AdvReac Type Severity Reaction Status Date / Time bacitracin AdvReac Unknown Verified 07/22/24 19:19 [From Neosporin ([id number])] neomycin AdvReac Unknown Verified 07/22/24 19:19 [From Neosporin ([id number])] polymyxin B AdvReac Unknown Verified 07/22/24 19:19 [From Neosporin ([id number])] Vital Signs Vital Signs - 24 hr 07/22/24 17:39 07/22/24 21:35 07/22/24 22:40 Temperature 36.6 C 37.1 C Pulse Rate 86 55 L Respiratory Rate 18 20 Blood Pressure 156/52 H 143/59 H Pulse Oximetry 100 99 99 Oxygen Delivery Room Air Room Air Fraction of Inspired Oxygen 07/22/24 22:40 07/23/24 05:41 07/23/24 08:43 Temperature 36.6 C 36.9 C Pulse Rate 87 81 Respiratory Rate 20 18 Blood Pressure 167/57 H 138/66 Pulse Oximetry 100 99 99 Oxygen Delivery Room Air Fraction of Inspired Oxygen 21 07/23/24 08:00 07/23/24 14:00 Temperat
[2024-07-23 19:34] VITALS: PULSE 81; RESP 18; O2SAT 100
[2024-07-23 20:00] VITALS: BP 156/63; PULSE 88; RESP 18; TEMP 36.8; O2SAT 98
[2024-07-24] VITALS (14 sets, daily range): BP systolic 124–168; BP diastolic 47–68; PULSE 59–76; RESP 12–20; TEMP 35.7–37; O2SAT 94–100
[2024-07-24] MEDS: LEVOTHYROXINE SODIUM 100 MCG TABLET PO (05:41)
[2024-07-24 06:00] LABS: Basophils Absolute Auto 0.1 K/mm3 (0.0-0.1); Basophils Percent Auto 0.5 % (0.2-1.2); Eosinophils Absolute Auto 0.5 K/mm3 (0-0.3); Eosinophils Percent Auto 5.9 % (0-4.4); Hematocrit 40.3 % (42.0-52.0); Hemoglobin 12.9 g/dL (14.0-18.0); Immature Granulocyte Absolute 0.03 K/mm3 (0.00-0.031); Immature Granulocyte Percent A 0.3 % (0-0.5); Lymphocytes Percent Auto 12.1 % (18.3-44.2); Mean Corpuscular Hemoglobin 28.9 pg (26-34); Mean Corpuscular Volume 90.4 fl (80-100); Mean Platelet Volume 9.2 fl (7.4-10.4); Monocytes Absolute Auto 0.8 K/mm3 (0.1-0.6); Monocytes Percent Auto 9.1 % (2.6-8.5); Neutrophils Absolute Auto 6.6 K/mm3 (1.3-6.7); Neutrophils Percent Auto 72.1 % (45.5-73.1); Platelet Count Result 155 k/mm3 (150-375); Red Blood Count 4.46 M/mm3 (4.6-6.20); Red Cell Distribution Width 14.9 % (11.5-14.5); White Blood Count 9.1 K/mm3 (4.5-10.0)
[2024-07-24 06:11] LABS: Alanine Aminotransferase 19 U/L (6-50); Albumin Level 3.7 g/dL (3.5-5.1); Alkaline Phosphatase 133 U/L (38-126); Anion Gap 9 mmol/L (4-12); Aspartate Amino Transferase 26 U/L (17-59); Bilirubin,Total 1.1 mg/dL (0.2-1.3); Blood Urea Nitrogen 24 mg/dL (9-20); Calcium 9.1 mg/dL (8.4-10.2); Carbon Dioxide 27 mmol/L (22-30); Chloride 102 mmol/L (98-107); Estimated CRCL calculation 32 ml/min; Estimated Glomerular Filt Rate 48; Glucose 111 mg/dL (65-110); Potassium 3.9 mmol/L (3.4-5.0); Sodium 138 mmol/L (137-145)
--- NOTE | 2024-07-24 11:19 | WPDHPUPDATE1 ---
History and Physical Update Update Date/Time: 07/24/24 11:19 History and Physical has been reviewed, including an updated exam of the patient. There are NO changes in the patient's condition. Risks, benefits, and alternatives have been discussed and questions answered. Patient agrees to proceed with procedure.
--- NOTE | 2024-07-24 11:31 | PM.IMPN ---
Progress Note: A&P Assessment and Plan (1) Subcapital fracture of left femur: Qualifiers: Encounter type: initial encounter Fracture type: closed Qualified Code(s): S72.012A - Unspecified intracapsular fracture of left femur, initial encounter for closed fracture Code(s): S72.012A - Unspecified intracapsular fracture of left femur, initial encounter for closed fracture Status: Acute Assessment and Plan: Surgery with Dr. Iqbal scheduled for today. NPO for surgery. (2) Lower extremity edema: Code(s): R60.0 - Localized edema Status: Acute Assessment and Plan: LE dopplers: Negative bilateral lower extremity venous US. No deep vein thrombosis. Monitor legs. (3) Chronic kidney disease, stage 3: Qualifiers: Chronic kidney disease stage 3 subtype: stage 3b (GFR 30-44) Qualified Code(s): N18.32 - Chronic kidney disease, stage 3b Code(s): N18.30 - Chronic kidney disease, stage 3 unspecified Status: Acute Assessment and Plan: Improved. BUN 24, Creatinine 1.40, and GFR 48. Monitor labs and I&O. (4) Dementia: Code(s): F03.90 - Unspecified dementia, unspecified severity, without behavioral disturbance, psychotic disturbance, mood disturbance, and anxiety Status: Acute Assessment and Plan: Reorient patient to room and call light. Remind patient to not get up without assistance. (5) Dermatitis: Code(s): L30.9 - Dermatitis, unspecified Status: Acute Assessment and Plan: Wound care consult. Thick plaques of yeast and dry skin noted to heels, lower legs and tops of feet. Received order to wash legs and feet with warm soapy water to help soften and remove the large plaques, then apply Clear Antifungal barrier cream every 12 hours to the skin to help decrease/ prevent yeast production, soothe the tissue with aloe and provide a barrier to skin from exudate and other fluids to promote healing. Miconazole Nitrate 2% Q 12 bilateral lower legs and feet maceration. Plan The patient presented to the emergency department for evaluation of left hip pain after a fall as detailed in HPI. Labs, imaging, EKG, and all reports were personally reviewed. He has a left subcapital hip fracture and he will be NPO today for probable repair today per Dr. Iqbal. Analgesics are available as needed. He has bilateral lower extremity edema which states is fairly chronic. Subjective Date/time seen: 07/24/24 11:31 Interval history: This is an 83-year-old male with dementia, hypertension, hyperlipidemia, chronic kidney disease, and hypothyroidism who presented to the emergency department for evaluation of left hip pain after a fall. The patient and his family provide the following history. They were at a family gathering this afternoon and the patient reportedly tripped while walking down two outdoor steps, landing on his buttock and back. He had immediate pain in the left hip and he was brought in for evaluation. He hit the back of his head gingerly and he did not lose consciousness. He denies antecedent symptoms prior to the fall. Family members state that he does not use a cane or a walker and he seems to walk with a slow somewhat shuffling gait and has a history of falls. In fact he was in the hospital earlier this summer with pelvic fractures. He denies recent cold and flu symptoms, fever, chest pain, pleuritic pain, shortness a breath, nausea, vomiting, diarrhea, and dysuria. Hip and pelvis x-ray showed a left subcapital femoral neck fracture. The patient is being admitted in this setting for pain control and orthopedic consultation for repair. Reports no pain when still but pain with movement. NPO for possible surgery. Review of Systems Review of Systems: 12 systems were reviewed and are negative except for as per HPI. Cardiovascular: Cardiovascular: Denies chest pain, Denies palpitations, Denies dyspnea and Denies dyspnea on exertion Resp
--- NOTE | 2024-07-24 13:15 | PC.NURSE ---
To OR at 1315, IV in L hand. Report given to SUNNY DUMONT.
--- NOTE | 2024-07-24 13:53 | WPDANESEPPF ---
Anes - Initial Pre Proc Eval Procedure: Operation Date: 07/24/24 14:30 Proposed Procedures p Left Bipolar Hip Replacement - Nils Iqbal MD Date/Time: 07/24/24 13:53 Surgeon: Loida Galeas MD Pre Op Diagnosis: L hip fx Patient Data Age: 84 Gender: M Height: 1.75 m Weight: 66.1 kg Last Vital Signs Temp 36.6 C 07/24/24 03:55 Pulse 60 07/24/24 03:55 Resp 18 07/24/24 03:55 BP 145/48 H 07/24/24 03:55 Pulse Ox 99 07/24/24 03:55 O2 Del Method Room Air 07/24/24 08:00 FiO2 21 07/23/24 19:34 Allergies Allergy/AdvReac Type Severity Reaction Status Date / Time bacitracin AdvReac Unknown Verified 07/22/24 19:19 [From Neosporin ([id number])] neomycin AdvReac Unknown Verified 07/22/24 19:19 [From Neosporin ([id number])] polymyxin B AdvReac Unknown Verified 07/22/24 19:19 [From Neosporin ([id number])] Home Medications Medication Instructions Recorded Confirmed Type amlodipine 10 mg tablet 10 mg PO DAILY 02/28/24 07/23/24 History atorvastatin 80 mg tablet 80 mg PO DAILY 02/28/24 07/23/24 History levothyroxine 100 mcg tablet 100 mcg PO DAILY 02/28/24 07/23/24 History aspirin 325 mg tablet,delayed 325 mg PO QAM #1 tablet 03/04/24 07/23/24 Rx release hydrochlorothiazide 12.5 mg capsule 12.5 mg PO DAILY 04/16/24 07/23/24 History Centrum Silver Men 1 tab-cap PO DAILY 07/23/24 07/23/24 History Laboratory Tests 07/23/24 07/24/24 17:34 05:35 WBC 9.1 K/mm3 (4.5-10.0) RBC 4.46 L M/mm3 (4.6-6.20) Hgb 12.9 L g/dL (14.0-18.0) Hct 40.3 L % (42.0-52.0) MCV 90.4 fl (80-100) MCH 28.9 pg (26-34) MCHC 32.0 g/dl (32-36) RDW 14.9 H % (11.5-14.5) Plt Count 155 k/mm3 (150-375) MPV 9.2 fl (7.4-10.4) Immature Gran % (Auto) 0.3 % (0-0.5) Neut % (Auto) 72.1 % (45.5-73.1) Lymph % (Auto) 12.1 L % (18.3-44.2) Shannon % (Auto) 9.1 H % (2.6-8.5) Eos % (Auto) 5.9 H % (0-4.4) Baso % (Auto) 0.5 % (0.2-1.2) Lymph # (Auto) 1.10 K/mm3 (0.9-3.2) Shannon # (Auto) 0.8 H K/mm3 (0.1-0.6) Eos # (Auto) 0.5 H K/mm3 (0-0.3) Baso # (Auto) 0.1 K/mm3 (0.0-0.1) Abs Immat Gran (auto) 0.03 K/mm3 (0.00-0.031) Absolute Neuts (auto) 6.6 K/mm3 (1.3-6.7) Absolute Nucleated RBC 0.000 K/mm3 (0.0-0.012) Nucleated RBC % 0.0 % (0.0-0.2) Sodium 138 mmol/L (137-145) Potassium 3.9 mmol/L (3.4-5.0) Chloride 102 mmol/L (98-107) Carbon Dioxide 27 mmol/L (22-30) Anion Gap 9 mmol/L (4-12) BUN 24 H mg/dL (9-20) Creatinine 1.40 H mg/dL (0.7-1.3) Estim Creat Clear Calc 32 ml/min Estimated GFR 48 L (59 - ) Glucose 111 H mg/dL (65-110) Calcium 9.1 mg/dL (8.4-10.2) Total Bilirubin 1.1 mg/dL (0.2-1.3) AST 26 U/L (17-59) ALT 19 U/L (6-50) Alkaline Phosphatase 133 H U/L (38-126) Total Protein 8.0 g/dL (6.3-8.2) Albumin 3.7 g/dL (3.5-5.1) Blood Type O Positive Antibody Screen Negative Patient hx anesthesia problems: none Family hx anesthesia problems: none Results Review: All pre-operative results and documents have been reviewed as part of the pre-operative evaluation. [facility] Past Medical History Medical History (Updated 07/23/24 @ 17:09 by Nils Iqbal MD) C. difficile diarrhea Cerebrovascular accident (1989) Chronic kidney disease, stage 3 Dementia Hyperlipidemia Hypertension Hypothyroidism Family History Family History Other Unknown family medical history Social History Social History Social History: Surrogate medical decision maker: Selam Steven, spouse. Code status: Full c
[2024-07-24] MEDS: ceFAZolin 2 GM/D5W 50 ML 2 GM/50 ML BAG IVPB ×2 (14:39→22:02)
[2024-07-24] MEDS: SODIUM CHLORIDE 0.9% IV 37.7 ML, MORPHINE SULFATE INJ (*CRX) 2 MG, ROPivacaine HCL 1% 2... INFILTRATE (15:18)
--- NOTE | 2024-07-24 16:07 | W.PM.PROC2 ---
Procedure Note - Detailed Date of Procedure 07/24/24 Pre-op Diagnosis Displaced left hip femoral neck fracture Post-op Diagnosis Same Procedure Performed Bipolar hemiarthroplasty left hip. Surgeon Nils Iqbal MD Anesthesia General Findings Uncemented hemiarthroplasty. Excellent bone quality. No degenerative changes. Description of Procedure A general anesthetic was administered. The patient was carefully placed in the lateral decubitus position on the peg board positioner. An axillary roll was placed. The hip was prepped and draped in the usual sterile fashion. A minimally invasive optimized posterior approach to the hip was performed. An L shaped capsulotomy was created along the upper border of the piriformis. The short external rotators were tagged with number 2 high strength suture for later repair. The labrum was preserved. The femoral neck cut was performed. The femoral head was removed and sized. The acetabular floor was cleared of debris and loose tissue. The femur was sequentially broached. Trial was assessed for leg length and stability. The real component was impacted into position, trialed again, and the final head and bipolar component were assembled. The hip was reduced after copious irrigation. The short external rotators and capsule were repaired through drill holes in the posterior trochanter. The wound was closed in layers with 1 vicryl, 2,0, and 2-0 running barbed suture. Adhesive tapes were placed on the skin, followed by a sterile gauze dressing. The patient was extubated and brought to the recovery room. Implants Cassidy Accolate 2 hip stem 127 degree, size 5, UH are bipolar component outer diameter size 51, inner metal ball size 28 mm +4. Estimated Blood Loss 50 Urine Output 300 Drains No Pathology None sent Complications No immediate complications Condition Stable Disposition PACU [facility] Billing Surgery - Charge Forward: Surgery Billing
[2024-07-24] MEDS: LACTATED RINGERS 1,000 ML 30 ML IV CONT (16:10)
[2024-07-24] MEDS: ACETAMINOPHEN 325 MG TABLET 650 MG PO (18:23)
[2024-07-24] MEDS: SENNA/DOCUSATE SODIUM TABLET 2 TAB PO (18:23)
[2024-07-24] MEDS: FAMOTIDINE 20 MG TABLET PO (20:06)
[2024-07-24] MEDS: IBUPROFEN IV 800 MG/200 ML 800 MG/200 ML BAG 400 MG IVPB (22:21)
[2024-07-25] VITALS (7 sets, daily range): BP systolic 115–148; BP diastolic 50–71; PULSE 72–111; RESP 12–20; TEMP 36.7–37.3; O2SAT 95–99
[2024-07-25 01:25] LABS: Basophils Absolute Auto 0.1 K/mm3 (0.0-0.1); Basophils Percent Auto 0.6 % (0.2-1.2); Eosinophils Absolute Auto 0.4 K/mm3 (0-0.3); Eosinophils Percent Auto 4.6 % (0-4.4); Hematocrit 36.7 % (42.0-52.0); Hemoglobin 11.7 g/dL (14.0-18.0); Immature Granulocyte Absolute 0.02 K/mm3 (0.00-0.031); Immature Granulocyte Percent A 0.2 % (0-0.5); Lymphocytes Absolute Auto 0.99 K/mm3 (0.9-3.2); Lymphocytes Percent Auto 10.6 % (18.3-44.2); Mean Corpuscular HGB Conc 31.9 g/dl (32-36); Mean Corpuscular Volume 90.8 fl (80-100); Mean Platelet Volume 9.5 fl (7.4-10.4); Monocytes Absolute Auto 0.8 K/mm3 (0.1-0.6); Monocytes Percent Auto 8.6 % (2.6-8.5); Neutrophils Percent Auto 75.4 % (45.5-73.1); Platelet Count Result 152 k/mm3 (150-375); Red Blood Count 4.04 M/mm3 (4.6-6.20); Red Cell Distribution Width 14.9 % (11.5-14.5); White Blood Count 9.3 K/mm3 (4.5-10.0)
[2024-07-25 05:16] LABS: Basophils Absolute Auto 0.1 K/mm3 (0.0-0.1); Basophils Percent Auto 0.6 % (0.2-1.2); Eosinophils Absolute Auto 0.5 K/mm3 (0-0.3); Eosinophils Percent Auto 5.8 % (0-4.4); Hematocrit 34.5 % (42.0-52.0); Hemoglobin 10.5 g/dL (14.0-18.0); Immature Granulocyte Absolute 0.02 K/mm3 (0.00-0.031); Immature Granulocyte Percent A 0.2 % (0-0.5); Lymphocytes Absolute Auto 1.25 K/mm3 (0.9-3.2); Lymphocytes Percent Auto 13.5 % (18.3-44.2); Mean Corpuscular HGB Conc 30.4 g/dl (32-36); Mean Corpuscular Hemoglobin 27.9 pg (26-34); Mean Corpuscular Volume 91.8 fl (80-100); Mean Platelet Volume 9.4 fl (7.4-10.4); Monocytes Absolute Auto 0.9 K/mm3 (0.1-0.6); Monocytes Percent Auto 9.7 % (2.6-8.5); Neutrophils Absolute Auto 6.5 K/mm3 (1.3-6.7); Neutrophils Percent Auto 70.2 % (45.5-73.1); Platelet Count Result 150 k/mm3 (150-375); Red Blood Count 3.76 M/mm3 (4.6-6.20); Red Cell Distribution Width 14.9 % (11.5-14.5); White Blood Count 9.3 K/mm3 (4.5-10.0)
[2024-07-25 05:41] LABS: Alanine Aminotransferase 11 U/L (6-50); Albumin Level 3.1 g/dL (3.5-5.1); Alkaline Phosphatase 111 U/L (38-126); Anion Gap 7 mmol/L (4-12); Aspartate Amino Transferase 46 U/L (17-59); Bilirubin,Total 0.3 mg/dL (0.2-1.3); Blood Urea Nitrogen 34 mg/dL (9-20); Calcium 8.3 mg/dL (8.4-10.2); Carbon Dioxide 26 mmol/L (22-30); Chloride 104 mmol/L (98-107); Estimated CRCL calculation 26 ml/min; Estimated Glomerular Filt Rate 38; Glucose 119 mg/dL (65-110); Potassium 3.7 mmol/L (3.4-5.0); Sodium 137 mmol/L (137-145)
[2024-07-25] MEDS: ceFAZolin 2 GM/D5W 50 ML 2 GM/50 ML BAG IVPB ×2 (07:56→13:57)
--- NOTE | 2024-07-25 08:35 | PM.PNORT ---
Progress Note: A&P Assessment and Plan (1) Subcapital fracture of left femur: Qualifiers: Encounter type: initial encounter Fracture type: closed Qualified Code(s): S72.012A - Unspecified intracapsular fracture of left femur, initial encounter for closed fracture Code(s): S72.012A - Unspecified intracapsular fracture of left femur, initial encounter for closed fracture Status: Acute Assessment and Plan: Postop day 1: Left bipolar hemiarthroplasty. Patient tolerated procedure well. No complications. Pain manageable with pain medication. No numbness or tingling. Patient is pleasantly confused. No complaints today. Patient will likely benefit from acute rehab/home health. Patient may bear weight as tolerated with a walker. Okay for discharge from orthopedic stand point. Ortho instructions: DOS: 07/24/24. D/C to rehab/home health Xray and follow up in office in 4-6 weeks. Wound Care: Remove Mepilex dressing at 7 days post op. Remove steristrips at 14 days post op. May shower. No soaking. PT: Weight bearing as tolerated with a walker. DVT prophylaxis: resume normal aspirin dose. Pain medication: Tylenol. Subjective Subjective Date/Time Seen: 07/25/24 08:35 Interval history: Patient resting comfortably at the time of my visit. No pain. Denies any other issues. Review of Systems Review of Systems: All systems reviewed & are unremarkable except as noted in HPI and below Exam Narrative: 84 y/o male. Resting comfortably in bed. Dressing dry and intact with no drainage. Mild swelling. No ecchymosis. No erythema. No hematoma. Range of motion limited due to pain. Calf nontender. Thigh nontender. Neurologic status intact. No varicosities. Distal pulses palpable. He does have significant skin flaking and redness in bilateral feet and lower legs. Unable to wear compression socks due to this. Patient not tolerating the leg squeezers. Objective Data Vital Signs Vital Signs: Vital Signs - 24 hr 07/24/24 16:10 07/24/24 16:25 07/24/24 16:40 Temperature 97.5 F L Pulse Rate 72 61 63 Respiratory Rate 14 12 16 Blood Pressure 155/67 H 168/65 H 168/65 H Pulse Oximetry 100 100 100 Oxygen Delivery Simple Face Mask Simple Face Mask Room Air Oxygen Flow Rate 8 8 Fraction of Inspired Oxygen 07/24/24 16:55 07/24/24 17:10 07/24/24 17:25 Temperature Pulse Rate 65 59 L 72 Respiratory Rate 20 16 14 Blood Pressure 163/62 H 160/52 H 161/57 H Pulse Oximetry 94 96 97 Oxygen Delivery Room Air Room Air Room Air Oxygen Flow Rate Fraction of Inspired Oxygen 07/24/24 17:30 07/24/24 18:00 07/24/24 18:15 Temperature 96.3 F L 97.1 F L Pulse Rate 65 63 69 Respiratory Rate 16 12 16 Blood Pressure 125/68 144/51 H 151/49 H Pulse Oximetry 95 99 98 Oxygen Delivery Room Air Oxygen Flow Rate Fraction of Inspired Oxygen 07/24/24 18:45 07/24/24 19:48 07/24/24 20:00 Temperature 97.4 F L 98.6 F Pulse Rate 76 76 74 Respiratory Rate 16 16 16 Blood Pressure 130/47 L 124/50 L Pulse Oximetry 97 97 96 Oxygen Delivery Room Air Oxygen Flow Rate Fraction of Inspired Oxygen 21 07/24/24 21:08 07/25/24 00:00 07/25/24 04:20 Temperature 98.5 F 98.3 F Pulse Rate 86 72 Respiratory Rate 18 20 Blood Pressure 132/60 141/65 H Pulse Oximetry 97 98 97 Oxygen Delivery Room Air Oxygen Flow Rate Fraction of Inspired Oxygen Intake/Output Intake/Output: Intake & Output 07/22/24 07/23/24 07/24/24 07/25/24 23:59 23:59 23:59 23:59 Intake Total 200 1680 100 Output Total 400 1350 300 500 Balance -400 -1150 1380 -400 Meds/Results Medications: Active Medications Generic Name Dose Route Start Last Admin Trade Name Freq PRN Reason Stop Dose Admin Acetaminophen 650 mg 07/22/24 22:35 Acetaminophen 325 Mg Tablet PO Q6H PRN Mild Pain (1-3) or Fever Acetaminophen 650 mg 07/24/24 18:00 07/25/24 05:53 Acetaminophen 325 Mg Tablet PO
[2024-07-25] MEDS: ATORVASTATIN 40 MG TABLET 80 MG PO (08:45)
[2024-07-25] MEDS: FAMOTIDINE 20 MG TABLET PO ×2 (08:45→20:08)
[2024-07-25] MEDS: SENNA/DOCUSATE SODIUM TABLET 2 TAB PO ×2 (08:45→17:18)
[2024-07-25] MEDS: ASPIRIN 325 MG ENTERIC TABLET PO (08:45)
--- NOTE | 2024-07-25 11:27 | PM.IMPN ---
Progress Note: A&P Assessment and Plan (1) Subcapital fracture of left femur: Qualifiers: Encounter type: initial encounter Fracture type: closed Qualified Code(s): S72.012A - Unspecified intracapsular fracture of left femur, initial encounter for closed fracture Code(s): S72.012A - Unspecified intracapsular fracture of left femur, initial encounter for closed fracture Status: Acute Assessment and Plan: Surgery yesterday with Dr. Iqbal. Left hip incision with dressing intact. No redness, swelling, or drainage noted. (2) Lower extremity edema: Code(s): R60.0 - Localized edema Status: Acute Assessment and Plan: LE dopplers: Negative bilateral lower extremity venous US. No deep vein thrombosis. Monitor legs. (3) Chronic kidney disease, stage 3: Qualifiers: Chronic kidney disease stage 3 subtype: stage 3b (GFR 30-44) Qualified Code(s): N18.32 - Chronic kidney disease, stage 3b Code(s): N18.30 - Chronic kidney disease, stage 3 unspecified Status: Acute Assessment and Plan: Improved. BUN 34, Creatinine 1.70, and GFR 38. Monitor labs and I&O. Encourage PO intake. (4) Dementia: Code(s): F03.90 - Unspecified dementia, unspecified severity, without behavioral disturbance, psychotic disturbance, mood disturbance, and anxiety Status: Acute Assessment and Plan: Reorient patient to room and call light. Remind patient to not get up without assistance. (5) Dermatitis: Code(s): L30.9 - Dermatitis, unspecified Status: Acute Assessment and Plan: Wound care consult. Thick plaques of yeast and dry skin noted to heels, lower legs and tops of feet. Received order to wash legs and feet with warm soapy water to help soften and remove the large plaques, then apply Clear Antifungal barrier cream every 12 hours to the skin to help decrease/ prevent yeast production, soothe the tissue with aloe and provide a barrier to skin from exudate and other fluids to promote healing. Miconazole Nitrate 2% Q 12 bilateral lower legs and feet maceration. Plan The patient presented to the emergency department for evaluation of left hip pain after a fall as detailed in HPI. Labs, imaging, EKG, and all reports were personally reviewed. He has a left subcapital hip fracture and he will be NPO today for probable repair today per Dr. Iqbal. Analgesics are available as needed. He has bilateral lower extremity edema which states is fairly chronic. Subjective Date/time seen: 07/25/24 11:27 Interval history: This is an 83-year-old male with dementia, hypertension, hyperlipidemia, chronic kidney disease, and hypothyroidism who presented to the emergency department for evaluation of left hip pain after a fall. The patient and his family provide the following history. They were at a family gathering this afternoon and the patient reportedly tripped while walking down two outdoor steps, landing on his buttock and back. He had immediate pain in the left hip and he was brought in for evaluation. He hit the back of his head gingerly and he did not lose consciousness. He denies antecedent symptoms prior to the fall. Family members state that he does not use a cane or a walker and he seems to walk with a slow somewhat shuffling gait and has a history of falls. In fact he was in the hospital earlier this summer with pelvic fractures. He denies recent cold and flu symptoms, fever, chest pain, pleuritic pain, shortness a breath, nausea, vomiting, diarrhea, and dysuria. Left subcapital femoral neck fracture repaired yesterday. H&H 10.5/34.5. Review of Systems Review of Systems: 12 systems were reviewed and are negative except for as per HPI. Cardiovascular: Cardiovascular: Denies chest pain, Denies palpitations, Denies dyspnea and Denies dyspnea on exertion Respiratory: Respiratory: Denies cough, Denies dyspnea and Denies dyspnea on exertion Gastrointestina
[2024-07-25] MEDS: ACETAMINOPHEN 325 MG TABLET 650 MG PO ×2 (12:20→17:18)
--- NOTE | 2024-07-25 13:27 | WPDANESPN ---
Anes - Prog Note Post-Op Date/Time: 07/25/24 13:27 Cardiovascular status: normal Respiratory status: normal Airway patency: baseline Mental status: baseline Post-Op hydration status: normal Vital Signs: Last Vital Signs Temp 37.3 C 07/25/24 10:49 Pulse 82 07/25/24 10:49 Resp 12 07/25/24 10:49 BP 125/71 07/25/24 10:49 Pulse Ox 99 07/25/24 10:49 O2 Del Method Room Air 07/25/24 11:25 O2 Flow Rate 8 07/24/24 16:25 FiO2 21 07/24/24 19:48 Pain Score (VAS): 12/24 I/O: Intake & Output 07/24/24 07/25/24 07/25/24 23:59 07:59 15:59 Intake Total 390 100 480 Output Total 300 500 Balance 90 -400 480 Laboratory Tests 07/25/24 04:48 07/25/24 04:48 07/25/24 07/25/24 00:59 04:48 WBC 9.3 9.3 RBC 4.04 L 3.76 L Hgb 11.7 L 10.5 L Hct 36.7 L 34.5 L MCV 90.8 91.8 MCH 29.0 27.9 MCHC 31.9 L 30.4 L RDW 14.9 H 14.9 H Plt Count 152 150 MPV 9.5 9.4 Immature Gran % (Auto) 0.2 0.2 Neut % (Auto) 75.4 H 70.2 Lymph % (Auto) 10.6 L 13.5 L [place] % (Auto) 8.6 H 9.7 H Eos % (Auto) 4.6 H 5.8 H Baso % (Auto) 0.6 0.6 Lymph # (Auto) 0.99 1.25 [place] # (Auto) 0.8 H 0.9 H Eos # (Auto) 0.4 H 0.5 H Baso # (Auto) 0.1 0.1 Abs Immat Gran (auto) 0.02 0.02 Absolute Neuts (auto) 7.0 H 6.5 Absolute Nucleated RBC 0.000 0.000 Nucleated RBC % 0.0 0.0 Sodium 137 Potassium 3.7 Chloride 104 Carbon Dioxide 26 Anion Gap 7 BUN 34 H D Creatinine 1.70 H Estim Creat Clear Calc 26 Estimated GFR 38 L Glucose 119 H Calcium 8.3 L Total Bilirubin 0.3 AST 46 ALT 11 Alkaline Phosphatase 111 Total Protein 7.0 Albumin 3.1 L Post-procedural complaints: none Patient Feedback: Patient satisfied with anesthetic care.
[2024-07-26 05:34] LABS: Basophils Absolute Auto 0.1 K/mm3 (0.0-0.1); Basophils Percent Auto 0.6 % (0.2-1.2); Eosinophils Absolute Auto 0.4 K/mm3 (0-0.3); Eosinophils Percent Auto 4.5 % (0-4.4); Hematocrit 38.6 % (42.0-52.0); Hemoglobin 12.1 g/dL (14.0-18.0); Immature Granulocyte Absolute 0.01 K/mm3 (0.00-0.031); Immature Granulocyte Percent A 0.1 % (0-0.5); Lymphocytes Absolute Auto 1.29 K/mm3 (0.9-3.2); Lymphocytes Percent Auto 15.3 % (18.3-44.2); Mean Corpuscular HGB Conc 31.3 g/dl (32-36); Mean Corpuscular Hemoglobin 28.6 pg (26-34); Mean Corpuscular Volume 91.3 fl (80-100); Mean Platelet Volume 9.2 fl (7.4-10.4); Monocytes Absolute Auto 0.9 K/mm3 (0.1-0.6); Monocytes Percent Auto 10.3 % (2.6-8.5); Neutrophils Absolute Auto 5.8 K/mm3 (1.3-6.7); Neutrophils Percent Auto 69.2 % (45.5-73.1); Platelet Count Result 155 k/mm3 (150-375); Red Blood Count 4.23 M/mm3 (4.6-6.20); Red Cell Distribution Width 14.8 % (11.5-14.5); White Blood Count 8.4 K/mm3 (4.5-10.0)
[2024-07-26] MEDS: LEVOTHYROXINE SODIUM 100 MCG TABLET PO (05:38)
[2024-07-26] MEDS: ACETAMINOPHEN 325 MG TABLET 650 MG PO ×2 (05:39→12:25)
[2024-07-26 05:50] LABS: Albumin Level 3.4 g/dL (3.5-5.1); Alkaline Phosphatase 130 U/L (38-126); Anion Gap 8 mmol/L (4-12); Aspartate Amino Transferase 54 U/L (17-59); Bilirubin,Total 0.5 mg/dL (0.2-1.3); Blood Urea Nitrogen 26 mg/dL (9-20); Calcium 8.4 mg/dL (8.4-10.2); Carbon Dioxide 27 mmol/L (22-30); Chloride 103 mmol/L (98-107); Estimated CRCL calculation 37 ml/min; Estimated Glomerular Filt Rate 52; Glucose 109 mg/dL (65-110); Potassium 3.9 mmol/L (3.4-5.0); Sodium 138 mmol/L (137-145)
[2024-07-26 05:55] LABS: Alanine Aminotransferase < 6 U/L (6-50)
[2024-07-26 06:03] VITALS: BP 147/52; PULSE 83; RESP 18; TEMP 37.2; O2SAT 94
[2024-07-26] MEDS: polyethylene glycoL 3350 17 GM POWD.PACK PO (09:01)
[2024-07-26] MEDS: ATORVASTATIN 40 MG TABLET 80 MG PO (09:03)
[2024-07-26] MEDS: FAMOTIDINE 20 MG TABLET PO (09:03)
[2024-07-26] MEDS: ASPIRIN 325 MG ENTERIC TABLET PO (09:03)
[2024-07-26] MEDS: SENNA/DOCUSATE SODIUM TABLET 2 TAB PO (09:03)
[2024-07-26] MEDS: oxyCODONE HCL (*CRX) 2.5 MG TAB IR PO (09:03)
--- NOTE | 2024-07-26 10:37 | PM.PNORT ---
Progress Note: A&P Assessment and Plan (1) Subcapital fracture of left femur: Qualifiers: Encounter type: initial encounter Fracture type: closed Qualified Code(s): S72.012A - Unspecified intracapsular fracture of left femur, initial encounter for closed fracture Code(s): S72.012A - Unspecified intracapsular fracture of left femur, initial encounter for closed fracture Status: Acute Assessment and Plan: Postop day 2: Left bipolar hemiarthroplasty. No changes in care plan. Plan for discharge home with home health. Patient tolerated procedure well. No complications. Pain manageable with pain medication. No numbness or tingling. Patient is pleasantly confused. No complaints today. Patient may bear weight as tolerated with a walker. Okay for discharge from orthopedic stand point. Ortho instructions: DOS: 07/24/24. D/C to home health Xray and follow up in office in 4-6 weeks. Wound Care: Remove Mepilex dressing at 7 days post op. Remove steristrips at 14 days post op. May shower. No soaking. PT: Weight bearing as tolerated with a walker. DVT prophylaxis: resume normal aspirin dose. Pain medication: Tylenol. Subjective Subjective Date/Time Seen: 07/26/24 10:37 Interval history: Patient resting comfortably. No pain. No other complaints. Review of Systems Review of Systems: All systems reviewed & are unremarkable except as noted in HPI and below Exam Narrative: 84 y/o male. Resting comfortably in bed. Dressing dry and intact with no drainage. Mild swelling. No ecchymosis. No erythema. No hematoma. Range of motion limited due to pain. Calf nontender. Thigh nontender. Neurologic status intact. No varicosities. Distal pulses palpable. He does have significant skin flaking and redness in bilateral feet and lower legs. Unable to wear compression socks due to this. Patient not tolerating the leg squeezers. Objective Data Vital Signs Vital Signs: Vital Signs - 24 hr 07/25/24 10:49 07/25/24 11:25 07/25/24 14:54 Temperature 99.1 F 98.1 F Pulse Rate 82 79 Respiratory Rate 12 16 Blood Pressure 125/71 148/54 H Pulse Oximetry 99 99 Oxygen Delivery Room Air 07/25/24 18:38 07/25/24 19:20 09/11/24 20:00 Temperature 98.6 F 99.1 F Pulse Rate 111 H 89 Respiratory Rate 16 18 Blood Pressure 115/52 L 141/50 H Pulse Oximetry 96 97 Oxygen Delivery Room Air 07/26/24 06:03 07/26/24 09:38 Temperature 99.0 F Pulse Rate 83 Respiratory Rate 18 Blood Pressure 147/52 H Pulse Oximetry 94 Oxygen Delivery Room Air Intake/Output Intake/Output: Intake & Output 07/23/24 07/24/24 07/25/24 07/26/24 23:59 23:59 23:59 23:59 Intake Total 200 1680 1050 240 Output Total 6937 895 9280 800 Balance -1150 1380 -300 -560 Meds/Results Medications: Active Medications Generic Name Dose Route Start Last Admin Trade Name Freq PRN Reason Stop Dose Admin Acetaminophen 650 mg 07/22/24 22:35 Acetaminophen 325 Mg Tablet PO Q6H PRN Mild Pain (1-3) or Fever Acetaminophen 650 mg 07/24/24 18:00 07/26/24 05:39 Acetaminophen 325 Mg Tablet PO 650 mg Q6HR SIOBHAN Administration Aspirin 325 mg 07/25/24 09:00 07/26/24 09:03 Aspirin 325 Mg Enteric Tablet PO 325 mg QAM SIOBHAN Administration Atorvastatin Calcium 80 mg 07/23/24 09:00 07/26/24 09:03 Atorvastatin 40 Mg Tablet PO 80 mg DAILY SIOBHAN Administration Famotidine 20 mg 07/24/24 21:00 07/26/24 09:03 Famotidine 20 Mg Tablet PO 20 mg Q12HR SIOBHAN Administration Hydroxyzine Pamoate 50 mg 07/24/24 17:35 Hydroxyzine Pamoate 25 Mg Capsule PO Q4H PRN Itching Ibuprofen 800 mg in 200 mls @ 400 mls/hr 07/24/24 17:35 07/25/24 02:23 Caldolor 800 Mg/200 Ml IVPB Infused Q6H PRN Infusion Breakthrough Pain Rated 1-3 or NPO Levothyroxine Sodium 100 mcg 07/23/24 07:35 07/26/24 05:38 Levothyroxine Sodium 100 Mcg Tablet PO 100 mcg DAILY@0630 [facility]
--- NOTE | 2024-07-26 11:18 | PM.IMPN ---
Progress Note: A&P Assessment and Plan (1) Subcapital fracture of left femur: Qualifiers: Encounter type: initial encounter Fracture type: closed Qualified Code(s): S72.012A - Unspecified intracapsular fracture of left femur, initial encounter for closed fracture Code(s): S72.012A - Unspecified intracapsular fracture of left femur, initial encounter for closed fracture Status: Acute Assessment and Plan: Surgery 07/24/[address] Iqbal. Left hip incision with dressing intact. No redness, swelling, or drainage noted. Monitor site for changes. (2) Lower extremity edema: Code(s): R60.0 - Localized edema Status: Acute Assessment and Plan: LE dopplers: Negative bilateral lower extremity venous US. No deep vein thrombosis. Monitor legs. (3) Chronic kidney disease, stage 3: Qualifiers: Chronic kidney disease stage 3 subtype: stage 3b (GFR 30-44) Qualified Code(s): N18.32 - Chronic kidney disease, stage 3b Code(s): N18.30 - Chronic kidney disease, stage 3 unspecified Status: Acute Assessment and Plan: Improved. BUN 26, Creatinine 1.30, and GFR 52. Monitor labs and I&O. Encourage PO intake. (4) Dementia: Code(s): F03.90 - Unspecified dementia, unspecified severity, without behavioral disturbance, psychotic disturbance, mood disturbance, and anxiety Status: Acute Assessment and Plan: Reorient patient to room and call light. Remind patient to not get up without assistance. (5) Dermatitis: Code(s): L30.9 - Dermatitis, unspecified Status: Acute Assessment and Plan: Wound care consult. Thick plaques of yeast and dry skin noted to heels, lower legs and tops of feet. Received order to wash legs and feet with warm soapy water to help soften and remove the large plaques, then apply Clear Antifungal barrier cream every 12 hours to the skin to help decrease/ prevent yeast production, soothe the tissue with aloe and provide a barrier to skin from exudate and other fluids to promote healing. Miconazole Nitrate 2% Q 12 bilateral lower legs and feet maceration. Plan The patient presented to the emergency department for evaluation of left hip pain after a fall as detailed in HPI. Labs, imaging, EKG, and all reports were personally reviewed. He has a left subcapital hip fracture and he will be NPO today for probable repair today per Dr. Iqbal. Analgesics are available as needed. He has bilateral lower extremity edema which states is fairly chronic. Subjective Date/time seen: 07/26/24 11:18 Interval history: This is an 83-year-old male with dementia, hypertension, hyperlipidemia, chronic kidney disease, and hypothyroidism who presented to the emergency department for evaluation of left hip pain after a fall. The patient and his family provide the following history. They were at a family gathering this afternoon and the patient reportedly tripped while walking down two outdoor steps, landing on his buttock and back. He had immediate pain in the left hip and he was brought in for evaluation. He hit the back of his head gingerly and he did not lose consciousness. He denies antecedent symptoms prior to the fall. Family members state that he does not use a cane or a walker and he seems to walk with a slow somewhat shuffling gait and has a history of falls. In fact he was in the hospital earlier this summer with pelvic fractures. He denies recent cold and flu symptoms, fever, chest pain, pleuritic pain, shortness a breath, nausea, vomiting, diarrhea, and dysuria. Left subcapital femoral neck fracture repaired on 07/24/24. H&H 12.1/32.6, WBC 8.4. Review of Systems Review of Systems: 12 systems were reviewed and are negative except for as per HPI. Cardiovascular: Cardiovascular: Denies chest pain, Denies palpitations, Denies dyspnea and Denies dyspnea on exertion Respiratory: Respiratory: Denies cough, Denies dyspnea and Denies d
--- NOTE | 2024-07-26 12:11 | PM.DS ---
DS: Admitting Diagnosis Discharge Date 07/26/2024 Admitting Diagnosis left hip pain DS: Discharge Diagnosis Discharge Diagnosis (1) Subcapital fracture of left femur: Qualifiers: Encounter type: initial encounter Fracture type: closed Qualified Code(s): S72.012A - Unspecified intracapsular fracture of left femur, initial encounter for closed fracture Code(s): S72.012A - Unspecified intracapsular fracture of left femur, initial encounter for closed fracture Status: Acute Assessment and Plan: Surgery 07/24/[address] Iqbal. Left hip incision with dressing intact. No redness, swelling, or drainage noted. Monitor site for changes. (2) Closed fracture of left hip: Code(s): S72.002A - Fracture of unspecified part of neck of left femur, initial encounter for closed fracture Status: Acute DS: Summary Hospital Course Reason for hospitalization: Left hip fracture. Hospital Course: This is an 83-year-old male with dementia, hypertension, hyperlipidemia, chronic kidney disease, and hypothyroidism who presented to the emergency department for evaluation of left hip pain after a fall. The patient and his family provide the following history. They were at a family gathering this afternoon and the patient reportedly tripped while walking down two outdoor steps, landing on his buttock and back. He had immediate pain in the left hip and he was brought in for evaluation. He hit the back of his head gingerly and he did not lose consciousness. He denies antecedent symptoms prior to the fall. Family members state that he does not use a cane or a walker and he seems to walk with a slow somewhat shuffling gait and has a history of falls. In fact he was in the hospital earlier this summer with pelvic fractures. 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 No deep vein thrombosis. Hip X-Ray 07/24/24 16:52 IMPRESSION: Expected postsurgical changes, with no radiographic evidence of procedure or hardware related complication. Left hip repair surgery on 07/24/24. Surgical site with no swelling, redness, or drainage. Dressing intact. Patient to go to [place] today for rehabilitation. 07/26/24: H&H 12.1/38.6, Creatinine 1.30, GFR 52. Status at Discharge Functional status at discharge: uses cane/walker Overall status at discharge: patient is progressing back to baseline Time Spent with Patient Time attestation: Total time spent providing and/or coordinating discharge services: Time spent: Greater than 30 minutes Exam Narrative: General: Well-developed, nontoxic-appearing male supine in bed in no acute distress. Weight: 74.4 kg. BMI: 24.2 HEENT: PERRL, EOMI. Sclera anicteric. Conjunctiva mildly injected. Oral mucosa is moist. Neck: Supple. Respiratory: Lungs are clear to auscultation bilaterally. Cardiovascular: Regular rate and rhythm with S1-S2. Occasional ectopy. Gastrointestinal: Abdomen is soft, flat, nontender, and nondistended with positive bowel sounds. Skin: Warm and dry. Faint erythema of the lower legs with evidence of dermatitis and possible tinea as well. Extremities: No cyanosis or clubbing. 1+ bilateral lower extremity edema. Left leg in the slightly shortened and externally rotated. Radial and pedal pulses intact. Neurological: Alert. Cran
== END 2024-07-26 15:25 | DRG 522 ==
LOC: ANHED 22:09 → ANH2MED 22:14
PROVIDERS: Orthopaedic Surgery; Physician Assistant; Physician Assistant Surgical; Admitting Provider Internal Medicine; Emergency Provider Emergency Medicine; PCP Internal Medicine; Visit Provider Nurse Practitioner Family
PROC: 0SRS01A Replacement of Left Hip Joint, Femoral Surface with Metal Synthetic Substitute, Uncemented, Open Approach (ICD-10-PCS; CPT 27125; principal; 2024-07-24 14:30)
DX: S72.012A Unspecified intracapsular fracture of left femur, initial encounter for closed fracture (principal); W01.0XXA Fall on same level from slipping, tripping and stumbling without subsequent striking against object, initial encounter; F03.90 Unspecified dementia, unspecified severity, without behavioral disturbance, psychotic disturbance, mood disturbance, and anxiety; E78.5 Hyperlipidemia, unspecified; E03.9 Hypothyroidism, unspecified; I12.9 Hypertensive chronic kidney disease with stage 1 through stage 4 chronic kidney disease, or unspecified chronic kidney disease; L30.9 Dermatitis, unspecified; N18.32 Chronic kidney disease, stage 3b; Z91.81 History of falling; Z86.73 Personal history of transient ischemic attack (TIA), and cerebral infarction without residual deficits; Z87.891 Personal history of nicotine dependence
CPT/HCPCS: 36415; 70450; 71045; 72125; 73502; 80048; 80053; 83735; 84439; 84443; 84480; 85025; 85027; 86850; 86900; 86901; 93970; 96374; 97110; 97161; 97166; 97530; 99285; A9270; C1776; J0171; J0690; J1741; J1885; J2270; J2405; J2704; J2795; J3010; J7030; J7120

== ENCOUNTER 2024-08-31 12:32 | Outpatient (CLI) | payer MEDICARE, SELFPAY ==
--- NOTE | ~2024-08-31 | XR_ITS ---
XR hip LT 2V w AP pelvis 08/31/2024 12:54 Indication: Left hip pain Procedure: 3 views left hip including AP pelvis Comparison: 07/24/2024 Findings: There is a left hip arthroplasty. There are healed right pubic rami fractures. No acute fra cture or traumatic malalignment. The left hip prosthesis well seated. There is heterotopic ossificati on adjacent to the lesser trochanter. Impression: 1: No acute fracture. Reviewed, dictated and finalized at location B. Impression: 1: No acute fracture.
== END 2024-08-31 12:33 | disposition home or self-care (01) ==
PROVIDERS: PCP Internal Medicine; Visit Provider Orthopaedic Surgery
DX: S72.002A Fracture of unspecified part of neck of left femur, initial encounter for closed fracture (principal); X58.XXXA Exposure to other specified factors, initial encounter
CPT/HCPCS: 73502

== ENCOUNTER 2025-08-20 11:56 | Outpatient (CLI) | payer MEDICARE, SELFPAY ==
--- NOTE | ~2025-08-20 | US_ITS ---
Examination: Ultrasound of the retroperitoneum including kidneys and bladder. Clinical History: Chronic kidney disease stage 3B . Comparison: None available. Findings: Right kidney: 10 cm. Normal echogenicity. No collecting system dilatation. No shadowing calculi. Lobulation versus mass, 2.4 cm. Pelviectasis. Left kidney: 11 cm. Normal echogenicity. No collecting system dilatation. No shadowing calculi. Multiple cysts, largest with debris. Pelviectasis. Probable hydroureter Urinary bladder: No wall thickening or focal abnormality. Prevoid volume- 679 mL. Post void - 258 ml. Bilateral ureteral jets seen. IMPRESSION: 1. Recommend CT or MRI renal protocol. While probably prominent lobulation/column, right renal mass not excluded. 2. Bilateral pelviectasis, and probable hydroureter left side. Probably secondary to incomplete bladder emptying 3. Post void residual bladder volume 258 mL. Reviewed, dictated and finalized at location R. IMPRESSION: 1. Recommend CT or MRI renal protocol. While probably prominent lobulation/col umn, right renal mass not excluded. 2. Bilateral pelviectasis, and probable hydroureter left side. Probably second servando to incomplete bladder emptying 3. Post void residual bladder volume 258 mL.
--- OUTSIDE RECORDS SUMMARY | 2025-08-20 13:05 | XMS_ITS | Clinical Summary ---
Author Organization [employer] [facility] Address [address] [place] [phone] Phone Care Team Providers Care Health Care Recruiter Name Role Phone Unavailable Primary Care Provider Unavailabl e Allergies No known active allergies Medications amLODIPine (NORVASC) 10 MG tablet Take 10 mg by mouth 1 (one) time each day Active aspirin (ST MEÑO) 81 MG EC tablet Take 81 mg by mouth 1 (one) time each day Active atorvastatin (LIPITOR) 80 MG tablet Take 80 mg by mouth 1 (one) time each day 07/24/2018 Active hydroCHLOROthia zide (MICROZIDE) 12.5 MG capsule Take 12.5 mg by mouth 1 (one) time each day in the morning Active levothyroxine (SYNTHROID, LEVOTHROID) 100 MCG tablet Take 100 mcg by mouth 1 (one) time each day Active Multiple Vitamin (multivitamin) tablet Take 1 tablet by mouth 1 (one) time each day Active Acetaminophen 500 MG capsule Take by mouth every 6 (six) hours if needed for mild pain Active Active Problems Problem Noted Date Diagnosed Date Chronic kidney disease stage 3B 07/31/2025 Unspecified dementia, unspec ified severity, without behavioral disturbance, psychotic disturbance, mood disturbance, and anxiety 07/31/2025 Hyperlipidemia 07/31/2025 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> 025 History of cerebrovascular accident 07/31/2025 Hypothyroidism 08/23/2022 Essential hypertension 08/23/2022 Encounters Date Type Department Care Team Description 08/01/2025 Orders Only [facility] [address] [facility] [address] Gagandeep Newman MD 07/31/2025 2:15 PM CDT Office Visit [address] [phone] Gagandeep Newman MD Chronic kidney disease stage 3B (HCC); Essential hypertension; Hyperlipidemia, not otherwise specified; Hypothyroidism, not otherwise specified; Unspecified dementia, unspecified severity, without behavioral disturbance, psychotic disturbance, mood disturbance, and anxiety (HCC); 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>; History of cerebrovascular accident 06/17/2025 Documentation Only [place] [phone] ProviderRhoda MD from Last 3 Months Family History Relation Status Comments Father Mother Social History Tobacco Use Types Packs/Day Years Used Date Smoking Tobacco: Former Cigarettes Tobacco Cessation:Counseling Given: Not Answered Alcohol Use Standard Drinks/Week Comments Not Currently 0 (1 standard drink = 0.6 oz pur e alcohol) Sex and Gender Information Value Date Recorded Sex Assigned at Not on file Legal Sex Male 10:13 AM EDT Gender Identity Not on file Sexual Orientation Not on file Last Filed Vital Signs Vital Sign Reading Time Taken Comments Blood Pressure 120/64 07/31/2025 2:48 PM CDT Pulse 53 07/31/2025 2:48 PM CDT Temperature 37 C (98.6 F) 07/31/2025 2:48 PM CDT Respiratory Rate 18 07/31/2025 2:48 PM CDT Oxygen Saturation 97% 07/31/2025 2:48 PM CDT Inhaled Oxygen Concentration - - Weight 68.5 kg (151 lb) 07/31/2025 2:48 PM CDT Height 175.3 cm (5' 9) 07/31/2025 2:48 PM CDT Body Mass Index 22.3 07/31/2025 2:48 PM CDT Plan of Treatment Upcoming Encounters Date Type Department Care Team (Late st Contact Info) Description 09/11/2025 3:30 PM CDT Office Visit [address] [phone] Gagandeep Newman MD [address] [place] [phone] Health Maintenance Due Date Last Done Comments Pneumococcal Vaccine: 50+ Years (2 of 2 - PCV) 08/29/2021 08/29/2020 Influenza Vaccine (#1) 2025 0, 09/08/2019 Hepatitis B Vaccine Aged Out No longe r eligible based on patient's age to complete this topic Procedures Procedure Name Priority Date/Time Associated Diagnosis Comments HEMOGLOBIN A1C Routine 08/01/2025 8:41 AM CDT PROTEIN / CREATININE RATIO, URINE Routine 08/01/2025 8:41 AM CDT VITAMIN D 25 HYDROXY Routine 08/01/2025 8:41 AM CDT PTH, INTACT Routine 08/01/2025 8:41 AM CDT PSA, TOTAL Routine 08/01/2025 8:41 AM CDT CBC AND DIFFERENTIAL Routine 08/01/2025 8:41 AM CDT URINALYSIS WITH MICROSCOPIC Routine 08/01/2025 8:41 AM CDT COMPREHENSIVE METABOLIC PANEL Routine 08/01/2025 8:41 AM CDT PHOSPHATE ( PHOSPHORUS) Routine 08/01/2025 8:41 AM CDT LIPID PANEL Routine 08/01/2025 8:41 AM CDT EXT RESULT ENTRY Routine 06/11/2025 EXT RESULT ENTRY Routine 06/08/2025 EXT RESULT ENTRY Routine 05/24/2025 from Last 3 Months Results * Protein, Total, Random Urine w/Creatinine (Protein/Creat Ratio) (08/01/2025 8:41 AM CDT) Creatinine, Ur 108 20 - 320 mg/dL [facility] Urine Protein/Creatin ine Ratio 120 25 - 148 mg/g creat [facility] Protein/Creatin ine Ratio, Urine 0.120 0.025 - 0.148 mg/mg creat [facility] Protein Urine Random 13 5 - 25 mg/dL [facility] 08/01/2025 8:41 AM CDT 08/01/2025 8:44 AM CDT Narrative [place] [facility] - 08/02/2025 7:39 AM CDT FASTING:YES FASTING: YES Resulting Agency Comment Performing Organization Information: Site ID: Name: [facility] Address: [address] [address] Director: Josue Vasquez Gagandeep Newman MD LAB URINE ORDERABLES Final R esult [facility] [address] [phone] * Vitamin D 25 Hydroxy (08/01/2025 8:41 AM CDT) Pathologist [facility] Vitamin D, 25-OH, Total, IA 48 30 - 100 ng/mL [facility] Comment: Vitamin D Status 25-OH Vitamin D: Deficiency: <20 ng/mL Insufficiency: 20 - 29 ng/mL Optimal: > or = 30 ng/mL For 25-OH Vitamin D testing on patients on D2-supplementation and patients for whom quantitation of D2 and D3 fractions is required, the [facility]() 25-OH VIT D, (D2,D3), LC/MS/MS is recommended: order code 02649 (patients >2yrs). See Note 1 Note 1 For additional information, please refer to http://education.Cuciniale/faq/LXK068 (This link is being provided for informational/ educational purposes only.) 08/01/2025 8:41 AM CDT 08/01/2025 8:44 AM CDT Narrative [place] [facility] - 08/02/2025 7:39 AM CDT FASTING:YES FASTING: YES Resulting Agency Comment Performing Organization Information: Site ID: [id number] Name: [facility] Address: [address] [address] Director: Josue Vasquez MD Gagandeep Newman MD LAB BLOOD ORDERABLES Final R esult [place] [address] [address] * (ABNORMAL) Urinalysis with microscopic (08/01/2025 8:41 AM CDT) Color, Urine YELLOW YELLOW [facility] Appearance Urine CLEAR CLEAR [facility] Specific [place], UA 1.014 1.001 - 1.035 [facility] pH Urine < OR = 5.0(A) 5.0 - 8.0 [facility] Glucose, Ur NEGATIVE NEGATIVE [facility] Bilirubin, Urine NEGATIVE NEGATIVE [facility] Ketones, Urine NEGATIVE NEGATIVE [facility] Hemoglobin Ur Ql Strip NEGATIVE NEGATIVE [facility] Protein, Ur NEGATIVE NEGATIVE [facility] Nitrite, Urine POSITIVE(A) NEGATIVE [facility] WBC Esterase Urine 3+(A) NEGATIVE [facility] WBC, Urine > OR = 60(A) < OR = 5 /HPF [facility] RBC, Urine NONE SEEN < OR = 2 /HPF [facility] Epithelial Cells in Urine NONE SEEN < OR = 5 /HPF [facility] Trans Epithelial, Urine CANCELED < OR = 5 /HPF [facility] Comment:Result canceled by t he ancillary. Renal Epithelial Cells, Urine CANCELED < OR = 3 /HPF [facility] Comment:Result canceled by t he ancillary. Bacteria MANY(A) NONE SEEN /HPF [facility] Calcium Oxalate Crystals, Urine CANCELED NONE OR FEW /HPF [facility] Comment:Result canceled by t he ancillary. Triple Phosphate Crystals, Urine CANCELED NONE OR FEW /HPF [facility] Comment:Result canceled by t he ancillary. Uric Acid Crystals, Urine CANCELED NONE OR FEW /HPF [facility] Comment:Result canceled by t he ancillary. Amorphous Sediments CANCELED NONE OR FEW /HPF [facility] Comment:Result canceled by t he ancillary. Crystals CANCELED NONE SEEN /HPF [facility] Comment:Result canceled by t he ancillary. Hyaline Casts, Urine 0-5(A) NONE SEEN /LPF [facility] Granular Casts, Urine CANCELED NONE SEEN /LPF [facility] Comment:Result canceled by t he ancillary. Casts CANCELED NONE SEEN /LPF [facility] Comment:Result canceled by t he ancillary. Yeast, UA CANCELED NONE SEEN /HPF [facility] Comment:Result canceled by t he ancillary. Note: [facility] Comment: This urine was analyzed for the presence of WBC, RBC, bacteria, casts, and other formed elements. Only those elements seen were reported. 08/01/2025 8:41 AM CDT 08/01/2025 8:44 AM CDT Narrative [facility] - 08/02/2025 7:39 AM CDT FASTING:YES FASTING: YES Resulting Agency Comment Performing Organization Information: Site ID: Name: [facility] Address: [address] [address] Director: Josue Vasquez Gagandeep Newman MD LAB URINE ORDERABLES Final R esult [facility] [address] [phone] * (ABNORMAL) CBC and Differential (08/01/2025 8:41 AM CDT) WBC 6.6 3.8 - 10.8 Thousand/ uL [facility] RBC 4.24 4.20 - 5.80 Million/u L [facility] Hemoglobin 12.5(L) 13.2 - 17.1 g/dL [facility] Hematocrit 39.2 38.5 - 50.0 % [facility] MCV 92.5 80.0 - 100.0 fL [facility] MCH 29.5 27.0 - 33.0 pg [facility] MCHC 31.9(L) 32.0 - 36.0 g/dL [facility] Comment: For adults, a slight decrease in the calculated MCHC value (in the range of 30 to 32 g/dL) is most likely not clinically significant; however, it should be interpreted with caution in correlation with other red cell parameters and the patient's clinical condition. RDW 13.4 11.0 - 15.0 % [facility] Platelets 188 140 - 400 Thousand/ uL [facility] MPV 9.7 7.5 - 12.5 fL [facility] Neutrophils Absolute 3,973 1,500 - 7,800 cells/uL [facility] Band Neutrophils Absolute, Manual Count CANCELED 0 - 750 cells/uL [facility] Comment:Result canceled by t he ancillary. Metamyelocytes Absolute CANCELED 0 cells/uL [facility] Comment:Result canceled by t he ancillary. Absolute Myelocytes CANCELED 0 cells/uL [facility] Comment:Result canceled by t he ancillary. Absolute Promyelocytes CANCELED 0 cells/uL [facility] Comment:Result canceled by t he ancillary. Lymphocytes Absolute 1,736 850 - 3,900 cells/uL [facility] Monocytes Absolute 541 200 - 950 cells/uL [facility] Eosinophils Absolute 277 15 - 500 cells/uL [facility] Basophils Absolute 73 0 - 200 cells/uL [facility] Blasts Absolute CANCELED 0 cells/uL [facility] Comment:Result canceled by t he ancillary. NRBC Absolute CANCELED 0 cells/uL [facility] Comment:Result canceled by t he ancillary. Neutrophils Relative 60.2 % [facility] Bands Absolute CANCELED % [facility] Comment:Result canceled by t he ancillary. Metamyelocytes Percent CANCELED % [facility] Comment:Result canceled by t he ancillary. Myelocytes Relative CANCELED % [facility] Comment:Result canceled by t he ancillary. Promyelocytes Relative CANCELED % [facility] Comment:Result canceled by t he ancillary. Lymphocytes 26.3 % [facility] Variant lymphocytes/100 WBC (Bld) CANCELED 0 - 10 % [facility] Comment:Result canceled by t he ancillary. Monocytes 8.2 % [facility] Eosinophils 4.2 % [facility] Basophils Relative 1.1 % [facility] Blasts CANCELED % [facility] Comment:Result canceled by t he ancillary. nRBC CANCELED 0 /100 WBC [facility] Comment:Result canceled by t he ancillary. Comment(s) CANCELED [facility] Comment:Result canceled by t he ancillary. 08/01/2025 8:41 AM CDT 08/01/2025 8:44 AM CDT Narrative [facility] - 08/02/2025 7:39 AM CDT FASTING:YES FASTING: YES Resulting Agency Comment Performing Organization Information: Site ID: Name: [facility] Address: [address] [place] [address] Director: Josue Vasquez Gagandeep Newman MD LAB BLOOD ORDERABLES Final R esult [facility] [place] [facility] [address] [place] [address] * PSA (08/01/2025 8:41 AM CDT) PSA 0.38 < OR = 4.00 ng/mL [facility] Comment: The total PSA value from this assay system is standardized against the WHO standard. The test result will be approximately 20% lower when compared to the equimolar-standardized total PSA (Umang Mari). Comparison of serial PSA results should be interpreted with this fact in mind. This test was performed using the Siemens chemiluminescent method. Values obtained from different assay methods cannot be used interchangeably. PSA levels, regardless of value, should not be interpreted as absolute evidence of the presence or absence of disease. 08/01/2025 8:41 AM CDT 08/01/2025 8:44 AM CDT Narrative [facility] - 08/02/2025 7:39 AM CDT FASTING:YES FASTING: YES Resulting Agency Comment Performing Organization Information: Site ID: [place] Name: [facility] Address: [address] [place] [address] Director: Josue Vasquez MD Gagandeep Newman MD LAB BLOOD ORDERABLES Final R esult Performing Organization Address City/[facility] Co de Phone Number [facility] [address] [place] [address] * Phosphorus (08/01/2025 8:41 AM CDT) Phosphorus 3.4 2.1 - 4.3 mg/dL [facility] 08/01/2025 8:41 AM CDT 08/01/2025 8:44 AM CDT Narrative [facility] - 08/02/2025 7:39 AM CDT FASTING:YES FASTING: YES Resulting Agency Comment Performing Organization Information: Site ID: [place] Name: [facility] Address: [address] [place] [address] Director: Josue Vasquez Gagandeep Newman MD LAB BLOOD ORDERABLES Final R esult Performing Organization Address [facility] de Phone Number [facility] [address] [place] [address] * PTH, Intact (08/01/2025 8:41 AM CDT) Parathyroid Hormone, Intact 24 16 - 77 pg/mL [facility] Comment: Interpretive Guide Intact PTH Calcium ------- Normal Parathyroid Normal Normal Hypoparathyroidism Low or Low Normal Low Hyperparathyroidism Primary Normal or High High Secondary High Normal or Low Tertiary High High Non-Parathyroid Hypercalcemia Low or Low Normal High 08/01/2025 8:41 AM CDT 08/01/2025 8:44 AM CDT Narrative [facility] - 08/02/2025 7:39 AM CDT FASTING:YES FASTING: YES Resulting Agency Comment Performing Organization Information: Site ID: [place] Name: [facility] Address: [address] [address] Director: Josue Vasquez MD Gagandeep Newman MD LAB BLOOD ORDERABLES Final R esult Performing Organization Address City/[facility]/ZIP Co de Phone Number [facility] [address] [place] [address] * Hemoglobin A1c (08/01/2025 8:41 AM CDT) Hemoglobin A1C 5.5 <5.7 % of total Hgb [facility] Comment: For the purpose of screening for the presence of diabetes: <5.7% Consistent with the absence of diabetes 5.7-6.4% Consistent with increased risk for diabetes (prediabetes) > or =6.5% Consistent with diabetes This assay result is consistent with a decreased risk of diabetes. Currently, no consensus exists regarding use of hemoglobin A1c for diagnosis of diabetes in children. According to [place] Diabetes Association (ADA) guidelines, hemoglobin A1c <7.0% represents optimal control in non- diabetic patients. Different metrics may apply to specific patient populations. Standards of Medical Care in Diabetes(ADA). 08/01/2025 8:41 AM CDT 08/01/2025 8:44 AM CDT Narrative [facility] - 08/02/2025 7:39 AM CDT FASTING:YES FASTING: YES Resulting Agency Comment Performing Organization Information: Site ID: [place] Name: [facility] Address: [address] [address] Director: Josue Vasquez Gagandeep Newman MD LAB BLOOD ORDERABLES Final R esult Performing Organization Address City/[facility]/ZIP Co de Phone Number [facility] [address] [address] * (ABNORMAL) Lipid panel (08/01/2025 8:41 AM CDT) Pathologist [facility] Cholesterol 177 <200 mg/dL [facility] HDL 46 > OR = 40 mg/dL [facility] Triglycerides 134 <150 mg/dL [facility] LDL Direct 106(H) mg/dL (calc) [facility]Chana Toml[facility] Comment: Reference range: <100 Desirable range <100 mg/dL for primary prevention; <70 mg/dL for patients with CHD or diabetic patients with > or = 2 CHD risk factors. LDL-C is now calculated using the Filippo calculation, which is a validated novel method providing better accuracy than the Friedewald equation in the estimation of LDL-C. Bc SANTIZO et al. EDWARD. 2013;310(34): 1280-1012 (http://education.Cuciniale/faq/HND470) Chol/HDL Ratio 3.8 <5.0 (calc) [facility]oke ElkinsChana Tomlinson Non HDL Cholesterol 131(H) <130 mg/dL (calc) [facility] Comment: For patients with diabetes plus 1 major ASCVD risk factor, treating to a non-HDL-C goal of <100 mg/dL (LDL-C of <70 mg/dL) is considered a therapeutic option. 08/01/2025 8:41 AM CDT 08/01/2025 8:44 AM CDT Narrative [facility] - 08/02/2025 7:39 AM CDT FASTING:YES FASTING: YES Resulting Agency Comment Performing Organization Information: Site ID: Name: [facility] Address: [address] [address] Director: Josue Vasquez Gagandeep Newman MD LAB BLOOD ORDERABLES Final R esult [facility] [address] [address] * (ABNORMAL) Comprehensive Metabolic Panel (08/01/2025 8:41 AM CDT) Pathologist [facility] Glucose 100(H) 65 - 99 mg/dL [facility] Comment: Fasting reference interval For someone without known diabetes, a glucose value between 100 and 125 mg/dL is consistent with prediabetes and should be confirmed with a follow-up test. BUN 34(H) 7 - 25 mg/dL [facility] Creatinine 1.66(H) 0.70 - 1.22 mg/dL [facility] eGFR CKD-EPI CR 2020 40(L) > OR = 60 mL/min/1.7 3m2 [facility] ElkinsArmand Tomlinson BUN/Creatinine Ratio 20 6 - 22 (calc) [facility]kinsArmand Tomlinson Sodium 138 135 - 146 mmol/L [facility] Potassium 4.2 3.5 - 5.3 mmol/L [facility] Chloride 104 98 - 110 mmol/L [facility] Toml[facility] Bicarbonate (CO2) 29 20 - 32 mmol/L [facility] ElkinsArmand Tomlinson Calcium 9.1 8.6 - 10.3 mg/dL [facility]kinsArmand Tomlinson Total Protein 7.3 6.1 - 8.1 g/dL [facility] ElkinsArmand Tomlinson Albumin 3.9 3.6 - 5.1 g/dL [facility] Globulin, Total 3.4 1.9 - 3.7 g/dL (calc) [facility] Toml[facility] A/G Ratio 1.1 1.0 - 2.5 (calc) [facility] Total Bilirubin 0.5 0.2 - 1.2 mg/dL [facility] Alkaline Phosphatase 122 35 - 144 U/L [facility] SeveroArmnad Tomlinson AST (SGOT) 19 10 - 35 U/L [facility]oke ElkinsArmand Tomlinson ALT (SGPT) 14 9 - 46 U/L [facility] 08/01/2025 8:41 AM CDT 08/01/2025 8:44 AM CDT Narrative [facility] - 08/02/2025 7:39 AM CDT FASTING:YES FASTING: YES Resulting Agency Comment Performing Organization Information: Site ID: Name: [facility] Address: [address] [address] Director: Josue Vasquez us Gagandeep Newman MD LAB BLOOD ORDERABLES Final R esult [facility] [address] [phone] * (ABNORMAL) EXT RESULT ENTRY (06/11/2025) Only the most recent of3 resultswithin the time period is included. Creatinine 1.96(A) 0.60 - 1.30 mg/dL Creatinine in 24 hour Urine 1.42 Protein,mg/24Hr Urine 260 mg/24 H Creatinine Clearance 49.00(L) mL/min 06/11/2025 us Historical Provider LAB BLOOD ORDERABLES Edit ed Result - Final from Last 3 Months Insurance [facility] Medicare Advance Directives Documents on File Type Date Recorded Patient Logistics Specialist Expl anation Advance Care Planning 07/31/2025 4:29 PM
--- OUTSIDE RECORDS SUMMARY | 2025-08-20 13:05 | XMS_ITS | Clinical Summary ---
Author Organization [facility] [address] [facility] [place] [address] Care Team Providers Care Bottle Dealer Name Role Phone Adelfo Carrizales MD Primary Care Provider Allergies No known active allergies Medications amLODIPine (NORVASC) 10 mg tablet 0 8 Active hydroCHLOROthia zide (MICROZIDE) 12.5 mg capsule 4 8 Active levothyroxine (SYNTHROID, LEVOTHROID) 100 mcg tablet 3 8 Active atorvastatin (LIPITOR) 40 mg tablet 3 8 Active tvvpyxqd-fga-LR -lycopen-lutein (CENTRUM SILVER) 0.4-300-250 mg-mcg-mcg tablet Active aspirin 81 mg tablet Active triamcinolone (KENALOG) 0.1 % cream Apply to affected area 1-2 times daily as needed. Avoid face and groin. 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 Holding vancomycin for possible vilma syndrome. Erythema 08/24/2022 Assessment & Plan (08/25/2022 12:26 PM CDT): Erythema appears to be consitent with contact dermatitis vs cellulitis. Duplex does not show concerns for DVT Erythema of lower extremity 08/23/2022 Assessment & Plan (08/25/2022 12:25 PM CDT): Worsening erythema over the past year without systemic symptoms refractory to abx (Keflex in June and Clinda in July). - DDx: cellulitis, contact dermatitis 2/2 neosporin, venous stasis dermatitis - pending biopsy results - holding abx. Pending results of biopsy. To note, patient received vanc prior to obtaining skin biopsy - If biospy consistent with infection or inconclusive, will consult infectious disease. Surface skin cultures with gram positive cocci in clusters and pseudomonas but surface skin cultures are not a reliable indicator of pathologic bacteria in skin and soft tissue infections Assessment & Plan (08/24/2022 11:01 AM CDT): Patient presented to the ED with RLL erythema that has been progressively worsening over the last 12 months. No systematic symptoms as far as fevers, chills, nausea vomiting or altered mental status. States erythema waxes and wanes. Apparently treated w/ abx w/o improvement (Keflex in June and Clinda in July). Has been following in a wound clinic for dressing changes. Labs and vital signs are unremarkable apart from mild sinus tachycardia. X-ray of right lower extremity consistent with RLE soft tissue swelling with no evidence of gas formation or osteomyelitis. - Exam c/w cellulitis, although this has been ongoing for over a year and he denies any acute worsening and no fevers, no leukocytosis. Suspect underlying venous stasis dermatitis now w/ likely superimposed cellulitis. - Derm consulted last night for possible biopsy - blood cultures pending, wound cx obtained per Derm recs - will continue Vancomycin for now. Hypothyroidism, unspecified 08/23/2022 Assessment & Plan (08/25/2022 12:25 PM CDT): -continue home levothyroxine 100 mcg per day Assessment & Plan (08/24/2022 11:02 AM CDT): -continue home levothyroxine 100 mcg per day Hypertension, essential 08/23/2022 Assessment & Plan (08/25/2022 12:25 PM CDT): -continue home amlodipine 10 mg and hydrochlorothiazide 12.5 mg daily Assessment & Plan (08/24/2022 11:01 AM CDT): -continue home amlodipine 10 mg and hydrochlorothiazide 12.5 mg daily Bilateral carotid artery stenosis 08/07/2018 Social History Tobacco Use Types Packs/Day Years Used Date Smoking Tobacco: Former Cigarettes Smokeless Tobacco: Never Alcohol Use Standard Drinks/Week Comments No 0 (1 standard drink = 0.6 oz pur e alcohol) PHQ-2 Answer Date Recorded PHQ-2 Total Score (If total score is 3 or more points, staff should administer the PHQ-9) 0 08/24/2022 Sex and Gender Information Value Date Recorded Sex Assigned at Not on file 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 Gender Identity Not on file Sexual Orientation Not on file Obstetrics History Last Filed Vital Signs Vital Sign Reading Time Taken Comments Blood Pressure 119/58 08/25/2022 12:30 PM CDT Pulse 79 08/25/2022 12:30 PM CDT Temperature 36.7 C (98.1 F) 08/25/2022 4:35 AM CDT Respiratory Rate 18 08/25/2022 12:30 PM CDT Oxygen Saturation 97% 08/25/2022 12:30 PM CDT Inhaled Oxygen Concentration - - Weight 75.8 kg (167 lb) 08/24/2022 1:33 AM CDT Height 172.7 cm (5' 8) 08/23/2022 11:57 AM CDT Body Mass Index 25.39 08/23/2022 11:57 AM CDT Plan of Treatment Health Maintenance Due Date Last Done Comments DTaP/Tdap/Td Vaccine (1 - Tdap) 1951 Hepatitis B Screening 1958 Well Visit 65+ 2003 Pneumococcal vaccine 65+ (2 of 2 - PCV) 08/29/2021 08/29/2020 Depression Screening 08/23/2023 08/23/2022 Fall Risk Assessment 08/25/2023 08/25/2022 Covid-19 Vaccine ( season) 2025 11/11/2021, 02/07/2021, 01/10/2021 Influenza Vaccine (#1) 2025 08/25/2020, 2018 Zoster Vaccine Completed 11/10/2020, 08/29/2020 Insurance [employer] [place] [employer] Address: [id number] [place] [address] MEDICARE [employer] [place] [employer] Address: [address] [address] [place] [address] [facility] [place] [employer] [place] [employer] Address: [facility] [address] [place] [address] Advance Directives For more information, please contact: [phone] * Full Code (Latest Code Status on File) Date Activated Date Inactivated Comments 08/24/2022 1:32 AM 08/25/2022 8:21 PM Care Teams Bottle Dealer Relationship Specialty Start Date End Date Adelfo Carrizales MD PCP - General 12/29/17
--- OUTSIDE RECORDS SUMMARY | 2025-08-20 13:05 | XMS_ITS | Encounter Summary ---
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 Gender Identity Not on file Sexual Orientation Not on file documented as of this encounter Plan of Treatment Not on file documented as of this encounter Procedures Procedure Name Priority Date/Time Associated Diagnosis Comments VASCULAR LABORATORY REPORT 01/30/2018 3:20 PM CDT documented in this encounter Results * VASCULAR LABORATORY REPORT (01/30/2018 3:20 PM CDT) Anatomical Region Laterality Modality Ultrasound us Provider Scanning CV VASCULAR PROCEDURES Final R esult documented in this encounter Visit Diagnoses Not on filedocumented in this encounter Care Teams Project Specialist Relationship Specialty Start Date End Date Adelfo Carrizales MD PCP - General 12/29/17 documented as of this encounter
== END 2025-08-20 11:57 | disposition home or self-care (01) ==
PROVIDERS: PCP Internal Medicine; Visit Provider Internal Medicine Nephrology
DX: N18.32 Chronic kidney disease, stage 3b (principal)
CPT/HCPCS: 76770